=== PATIENT | male | born 1945 | race Caucasian/White ===

== ENCOUNTER 2021-03-31 22:19 | Emergency (ER) | payer MEDICARE, MEDICAID, SELFPAY ==
--- NOTE | 2021-03-31 | ECG_ITS ---
Test Reason : ABD PAIN Blood Pressure : / mmHG Vent. Rate : 114 BPM Atrial Rate : 114 BPM P-R Int : 126 ms QRS Dur : 118 ms QT Int : 346 ms P-R-T Axes : 058 -84 044 degrees QTc Int : 476 ms Artifact in tracing Sinus tachycardia Right bundle branch block Left anterior fascicular block Bifascicular block Minimal voltage criteria for LVH, may be normal variant ( R in aVL ) Abnormal ECG No previous ECGs available Referred By: Rosanna Ryan Electronically Signed By:DOUG KEY
--- NOTE | ~2021-03-31 | CT_ITS ---
EXAMINATION: CT HEAD WITHOUT CONTRAST CLINICAL INFORMATION: Fall. COMPARISON: None TECHNIQUE: Contiguous axial imaging was performed from the skull base to vertex without intravenous administration of contrast. This CT examination was performed using dose optimization techniques as appropriate, variously including the following: *Automated exposure control *Adjustment of mA and/or kV according to patient size (this includes techniques or standardized protocols for targeted exams where dose is matched to indication/reason for exam; i.e. extremities or head) *Use of iterative reconstruction technique DLP: 640 mGy-cm FINDINGS: There is no evidence of acute intracranial hemorrhage or edematous territorial infarction. A few foci of hypoattenuation in the periventricular and deep white matter are consistent with mild microangiopathy. Noguera-white matter differentiation is preserved. Proportional prominence of the ventricles and sulcal spaces. No evidence for obstructive hydrocephalus. No abnormal mass effect or midline shift. No extra-axial fluid collections. No acute soft tissue or osseous abnormalities. Mucus retention cyst in the right maxillary sinus. Other paranasal sinuses and mastoids are clear. CT/CT head/brain wo con IMPRESSION: No evidence of acute intracranial hemorrhage or edematous territorial infarction.
--- NOTE | ~2021-03-31 | CT_ITS ---
EXAMINATION: CTA CHEST, ABDOMEN AND PELVIS WITH CONTRAST CLINICAL INFORMATION: History of AAA with chest and abdominal pain COMPARISON: No pertinent prior studies are available for comparison. TECHNIQUE: After noncontrast timing run, volumetric imaging was performed from the thoracic inlet through the pubic symphysis following administration of 70 mL of Omnipaque 350.. Sagittal and coronal reformatted images were obtained on the technologist's workstation. Additional 2-D coronal and sagittal reformatted images and axial 3-D maximum intensity projection MIP images are generated on the CT workstation. This CT examination was performed using dose optimization techniques as appropriate, variously including the following: *Automated exposure control *Adjustment of mA and/or kV according to patient size (this includes techniques or standardized protocols for targeted exams where dose is matched to indication/reason for exam; i.e. extremities or head) *Use of iterative reconstruction technique DLP: 776 mGy-cm VASCULAR FINDINGS: The thoracic aorta demonstrates mild atherosclerotic changes without aneurysm or dissection. Some calcified and noncalcified plaque is present. Three-vessel branching pattern of the arch is seen with widely patent great vessels. Of note, there is a large abdominal aortic aneurysm present which begins immediately below the level of the renal arteries extending into both common iliac arteries. The aortic sac measures 8.3 x 7.8 cm in greatest dimension. The right iliac measures 4.3 cm in the left measures 3.1 cm. Significant concentric thrombus is present. Of note, a large amount of retroperitoneal blood is present surrounding this aneurysm indicating rupture. No definite active extravasation or bleeding is seen during the few seconds of the scan. The external iliac arteries are patent measuring about 7 mm in diameter. The common femoral arteries are widely patent as well. Femoral bifurcations are patent. Proximal profunda femoris and superficial femoral arteries are patent. The celiac and SMA are patent. The KATIA is patent. There is a single renal artery present on the right. 2 renal arteries are present on the left with a small lower pole accessory branch arising about 3.2 cm below the left main renal artery. The main component of the aneurysm begins just below this branch and there is an approximately 3.4 cm landing zone present below the main left renal artery. A stent placed which probably cover this tiny accessory lower pole branch. NONVASCULAR FINDINGS: CHEST: Lung: Mild changes of COPD are present. There is a 1.5 cm groundglass nodule in the right upper lobe (7:261). No other pulmonary nodules are seen. Mediastinum: The heart size is normal. No hilar or mediastinal lymphadenopathy. Pericardium/Pleura: No significant effusion. No pleural mass or thickening. Chest Wall/Axilla: Unremarkable ABDOMEN/PELVIS: Peritoneal Space: Free intraperitoneal blood is present in the pelvis. Liver, Gallbladder, Biliary Tree: The liver is normal in size, shape, and attenuation. Multiple hepatic hypodensities are seen most of which measure fluid density. There is one in the right lobe that is a bit higher has some and peripheral enhancement and could be a hemangioma but is indeterminate based upon this exam (7:531) No biliary ductal dilatation is present. The gallbladder is unremarkable with no evidence of radiopaque gallstones, gallbladder wall thickening, or obvious pericholecystic inflammatory changes. Pancreas: The pancreatic head is surrounded by hemorrhage and cannot be assessed. Spleen: Unremarkable Adrenal Glands: Unremarkable Kidneys and Ureters: The kidneys are normal in size, shape, and attenuation. No hydronephrosis, hydroureter, or calculi seen. No perinephric stranding. Bladder: Unremarkable Gastrointestinal Tract: The small and large bowel are unremarkable. The appendix is is not seen with certainty but there is no evidence of appendicitis.. Abdominal Wall: There is a left direct inguinal hernia containing an unobstructed loop of sigmoid colon. Retroperitoneum/Lymph Nodes: Marked retroperitoneal hemorrhage is present around the abdominal aortic aneurysm extending down into the pelvis with free intraperitoneal blood described above PELVIC VISCERA: Prostate is enlarged. OSSEUS STRUCTURES: Moderate degenerative changes are noted throughout the lumbar spine. No bony destructive lesions are seen. CT/CT angio abdomen pelvis IMPRESSION: 1. Large 8.3 cm AAA with surrounding retroperitoneal hemorrhage and free intraperitoneal blood. Vascular considerations regarding stent graft placement are described above including a small accessory left lower pole renal artery arising just before the main portion of the aneurysm begins. 2. No evidence of thoracic aortic aneurysm or dissection 3. Incidental note made of hepatic cysts and possible hemangioma, left direct inguinal hernia containing nonobstructed sigmoid colon and BPH. This critical result was discussed with Dr. Ryan at 11:10 PM on the evening of the exam and it was ascertained that the content and urgency of the report was understood at the time of direct communication.
[2021-03-31 22:26] VITALS: BP 130/90; PULSE 121; O2SAT 100
[2021-03-31 22:33] LABS: Glucose, Whole Blood 323 mg/dL (60-115)
--- NOTE | 2021-03-31 22:44 | ED_ITS ---
HPI - General Adult General Chief complaint: Fall Stated complaint: abd pain Time Seen by Provider: 03/31/21 22:22 Source: patient and EMS Mode of arrival: EMS Limitations: no limitations History of Present Illness HPI narrative: Patient comes emergency room complaining of severe abdominal pain. Patient was walking on ice at 16:00, patient slipped. Since then he has been having severe abdominal pain and has been vomiting. Patient states that he hit the side of his head, did not lose consciousness. Patient waited until approximately 22:00 to call the ambulance. Patient's called EMS, states that patient has been restless and in significant pain. On arrival, patient complaining of significant abdominal pain, has a pulsatile mass in the mid abdomen. Tender to palpation. Related Data Allergies Allergy/AdvReac Type Severity Reaction Status Date / Time No Known Allergies Allergy Verified 03/31/21 22:27 Review of Systems Verdana 4l Review of Systems: Verdana 4d Verdana 4d Constitutional : No Weight loss, No Fever, No Chills, No Night Sweats, No Fatigue, No Malaise ENT/Mouth : No Hearing loss, No Ear Pain, No Nasal Congestion, No Sinus Pain, No Hoarseness, No sore throat, No Rhinorrhea, No Swallowing DifficultyDifficulty Eyes: No Eye Pain, No Swelling, No Redness, No Foreign Body, No Discharge, No Vision Changes Cardiovascular : No Chest Pain, No SOB, No Dyspnea on Exertion, No Orthopnea, No Edema, No Palpitations Respiratory : No Cough, No Sputum, No Wheezing, No Smoke Exposure, No Dyspnea Gastrointestinal : Complaining of nausea and vomiting No Diarrhea, No Constipation, complaining of significant abdominal pain, Hematochezia, No Melena Genitourinary : no irregular bleeding, No Dysuria, No Urinary Frequency, No Hematuria, No Urinary Incontinence, No Urgency, No Flank Pain, No Urinary Flow Changes, No Hesitancy Musculoskeletal : No joint pain, No Myalgias, No Joint Swelling Skin : No Skin Lesions, No rash Neuro : No Weakness, No Numbness, No Paresthesias, No Loss of Consciousness, No Dizziness, No Headache Psych : No Anxiety/Panic, No Depression, No SI/HI/AH/VH, No Social Issues, Heme/Lymph: No Bruising, No Bleeding,No Lymphadenopathy Endocrine : No Polyuria, No Polydipsia, No Temperature Intolerance PMFSH Social History Social History Advance Directives: No Physical Exam Verdana 4l Const: Verdana 4d Verdana 4d Other: Verdana 4d Verdana 4d Appearance: Alert. Oriented X3. Significant abdominal pain Eyes: Pupils equal, round and reactive to light. ENT: Pharynx normal. Neck: Normal inspection. Neck supple. No lymph nodes noted. No crepituscrepitus CVS: Normal heart rate and rhythm. Pulses normal. Normal S1 and S2 Respiratory: No respiratory distress. Breath sounds normal. No Wheezing. No rales Abdomen: Soft , slightly tender, tender to palpation in the mid abdomen , pulsatile mass present the mid abdomen Skin: Skin warm and dry. Normal skin color. Normal skin turgor. Extremities: No lower extremity edema. . No Lacerations. No Rash Neuro: Oriented X 3. No motor deficit. No sensory deficit. Moving all extermities. No slurred speech. 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 Esmolol started dr. Ramsey from [facility] vascular surgery accepted the patient ER to ER Just before EMS was putting the patient on their stretcher, patient started becoming very confused, nearly unconscious. It was decided to intubate him prior to transfer . patient received 20 of etomidate, 50 mg rocuronium, [place] informed, patient intubated, patient's systolic blood pressure in the mid 100s Procedures Intubation sedative: Etomidate Mg Given: 20 paralytic: Rocuronium Mg Given: 50 Laryngoscope: other (GlideScope) ET Tube Size: 8 ET Tube Uncuffed: No Tube Secured Depth (cm): 24 Tube Secured Location: lips Tube Placement Confirmation: visualized tube passing through cords, equal breath sounds bilaterally, no breath sounds over epigastrium and confirmation by capnometry Patient Tolerated Procedure: well Intubation Complications: none Medical Decision Making Lab Data Result diagrams: 03/31/21 22:49 03/31/21 22:49 Labs: Lab Results 02/01/22 02/01/22 02/01/22 Range/Units 22:26 22:48 22:49 WBC 23.4 H (4.8-10.8) X10*3/uL RBC 4.12 L (4.60-5.80) X10*6/uL Hgb 12.2 L (14.0-18.0) g/dl Hct 36.5 L (42.0-52.0) % MCV 88.6 (80.0-98.0) fL MCH 29.6 (27.0-33.0) pg MCHC 33.4 (31.0-36.0) g/dl RDW 13.3 (11.0-16.0) % Plt Count 220 (160-400) X10*3/uL MPV 11.2 (9.4-12.4) fL Immature Gran % (Auto) 1.7 H (0.0-0.4) % Neut % (Auto) 87.5 H (45-73) % Lymph % (Auto) 4.6 L (20-40) % [place] % (Auto) 5.8 (2-11) % Eos % (Auto) 0.1 (0-4) % Baso % (Auto) 0.3 (0-2) % Lymph # (Auto) 1.1 L (1.2-4.9) X10*3/uL [place] # (Auto) 1.4 H (0.1-1.2) X10*3/uL Eos # (Auto) 0.0 (0.0-0.4) X10*3/uL Baso # (Auto) 0.1 (0.0-0.2) X10*3/uL Abs Immat Gran (auto) 0.39 H (0.00-0.03) X10*3/uL Absolute Neuts (auto) 20.5 H (2.0-8.3) x10*3/uL Absolute Nucleated RBC 0.000 (0.0-0.012) X10*3/uL Nucleated RBC % (auto) 0.0 (0.0-0.2) /100WBC Smear Tech's Comments VERIFIED PT (9.9-13.0) SEC INR (0.9-1.1) Sodium (135-145) mmol/L Potassium (3.3-5.1) mmol/L Chloride (96-108) mmol/L Carbon Dioxide (22-29) mmol/L Anion Gap (12-20) BUN (9-16) mg/dL Creatinine (0.5-1.4) mg/dL Estim Creat Clear Calc Estimated GFR POC Glucose 323 H (60-115) mg/dL Random Glucose (60-115) mg/dL Lactic Acid 6.1 H* (0.5-2.0) mmol/L Calcium (8.4-10.2) mg/dL Total Bilirubin (0.0-1.0) mg/dL Direct Bilirubin (0.0-0.5) mg/dL AST (5-37) U/L ALT (0-40) U/L Alkaline Phosphatase (39-117) U/L Troponin I High Sens (<3.5-35.0) ng/L Total Protein (6.5-8.0) g/dL Albumin (3.5-5.0) g/dL Ethyl Alcohol mg/dL COVID-19 ([facility]) (Negative) COVID-19 Clin Com Blood Type Antibody Screen Crossmatch 03/31/21 03/31/21 03/31/21 Range/Units 22:49 22:49 22:49 WBC (4.8-10.8) X10*3/uL RBC (4.60-5.80) X10*6/uL Hgb (14.0-18.0) g/dl Hct (42.0-52.0) % MCV (80.0-98.0) fL MCH (27.0-33.0) pg MCHC (31.0-36.0) g/dl RDW (11.0-16.0) % Plt Count (160-400) X10*3/uL MPV (9.4-12.4) fL Immature Gran % (Auto) (0.0-0.4) % Neut % (Auto) (45-73) % Lymph % (Auto) (20-40) % [place] % (Auto) (2-11) % Eos % (Auto) (0-4) % Baso % (Auto) (0-2) % Lymph # (Auto) (1.2-4.9) X10*3/uL [place] # (Auto) (0.1-1.2) X10*3/uL Eos # (Auto) (0.0-0.4) X10*3/uL Baso # (Auto) (0.0-0.2) X10*3/uL Abs Immat Gran (auto) (0.00-0.03) X10*3/uL Absolute Neuts (auto) (2.0-8.3) x10*3/uL Absolute Nucleated RBC (0.0-0.012) X10*3/uL Nucleated RBC % (auto) (0.0-0.2) /100WBC Smear Tech's Comments PT 14.4 H (9.9-13.0) SEC INR 1.3 H (0.9-1.1) Sodium 131 L (135-145) mmol/L Potassium 4.6 (3.3-5.1) mmol/L Chloride 99 (96-108) mmol/L Carbon Dioxide 22 (22-29) mmol/L Anion Gap 15 (12-20) BUN 17 H (9-16) mg/dL Creatinine 1.62 H (0.5-1.4) mg/dL Estim Creat Clear Calc TNP Estimated GFR 42 POC Glucose (60-115) mg/dL Random Glucose 350 H* (60-115) mg/dL Lactic Acid (0.5-2.0) mmol/L Calcium 8.4 (8.4-10.2) mg/dL Total Bilirubin 0.5 (0.0-1.0) mg/dL Direct Bilirubin 0.2 (0.0-0.5) mg/dL AST 12 (5-37) U/L ALT 13 (0-40) U/L Alkaline Phosphatase 83 (39-117) U/L Troponin I High Sens 9.2 (<3.5-35.0) ng/L Total Protein 5.4 L (6.5-8.0) g/dL Albumin 3.3 L (3.5-5.0) g/dL Ethyl Alcohol mg/dL COVID-19 ([facility]) (Negative) COVID-19 Clin Com Blood Type Antibody Screen Crossmatch 03/31/21 03/31/21 03/31/21 Range/Units 22:49 22:49 22:58 WBC (4.8-10.8) X10*3/uL RBC (4.60-5.80) X10*6/uL Hgb (14.0-18.0) g/dl Hct (42.0-52.0) % MCV (80.0-98.0) fL MCH (27.0-33.0) pg MCHC (31.0-36.0) g/dl RDW (11.0-16.0) % Plt Count (160-400) X10*3/uL MPV (9.4-12.4) fL Immature Gran % (Auto) (0.0-0.4) % Neut % (Auto) (45-73) % Lymph % (Auto) (20-40) % [place] % (Auto) (2-11) % Eos % (Auto) (0-4) % Baso % (Auto) (0-2) % Lymph # (Auto) (1.2-4.9) X10*3/uL [place] # (Auto) (0.1-1.2) X10*3/uL Eos # (Auto) (0.0-0.4) X10*3/uL Baso # (Auto) (0.0-0.2) X10*3/uL Abs Immat Gran (auto) (0.00-0.03) X10*3/uL Absolute Neuts (auto) (2.0-8.3) x10*3/uL Absolute Nucleated RBC (0.0-0.012) X10*3/uL Nucleated RBC % (auto) (0.0-0.2) /100WBC Smear Tech's Comments PT (9.9-13.0) SEC INR (0.9-1.1) Sodium (135-145) mmol/L Potassium (3.3-5.1) mmol/L Chloride (96-108) mmol/L Carbon Dioxide (22-29) mmol/L Anion Gap (12-20) BUN (9-16) mg/dL Creatinine (0.5-1.4) mg/dL Estim Creat Clear Calc Estimated GFR POC Glucose (60-115) mg/dL Random Glucose (60-115) mg/dL Lactic Acid (0.5-2.0) mmol/L Calcium (8.4-10.2) mg/dL Total Bilirubin (0.0-1.0) mg/dL Direct Bilirubin (0.0-0.5) mg/dL AST (5-37) U/L ALT (0-40) U/L Alkaline Phosphatase (39-117) U/L Troponin I High Sens (<3.5-35.0) ng/L Total Protein (6.5-8.0) g/dL Albumin (3.5-5.0) g/dL Ethyl Alcohol < 10 mg/dL COVID-19 ([facility]) Negative (Negative) COVID-19 Clin Com See Note Blood Type B Positive Antibody Screen NEGATIVE Crossmatch See Detail Imaging Data CTA of chest and abdomen: Radiologist's impression: CHEST: Lung: Mild changes of COPD are present. There is a 1.5 cm groundglass nodule in the right upper lobe (7:261). No other pulmonary nodules are seen. Mediastinum: The heart size is normal. No hilar or mediastinal lymphadenopathy. Pericardium/Pleura: No significant effusion. No pleural mass or thickening. Chest Wall/Axilla: Unremarkable ABDOMEN/PELVIS: Peritoneal Space: Free intraperitoneal blood is present in the pelvis. Liver, Gallbladder, Biliary Tree: The liver is normal in size, shape, and attenuation. Multiple hepatic hypodensities are seen most of which measure fluid density. There is one in the right lobe that is a bit higher has some and peripheral enhancement and could be a hemangioma but is indeterminate based upon this exam (7:531) No? biliary ductal dilatation is present. The gallbladder is unremarkable with no evidence of radiopaque gallstones, gallbladder wall thickening, or obvious pericholecystic inflammatory changes. Pancreas: The pancreatic head is surrounded by hemorrhage and cannot be assessed. Spleen: Unremarkable Adrenal Glands: Unremarkable Kidneys and Ureters: The kidneys are normal in size, shape, and attenuation. No hydronephrosis, hydroureter, or calculi seen. No perinephric stranding. Bladder: Unremarkable Gastrointestinal Tract: The small and large bowel are unremarkable. The appendix is is not seen with certainty but there is no evidence of appendicitis.. Abdominal Wall: There is a left direct inguinal hernia containing an unobstructed loop of sigmoid colon. Retroperitoneum/Lymph Nodes: Marked retroperitoneal hemorrhage is present around the abdominal aortic aneurysm extending down into the pelvis with free intraperitoneal blood described above PELVIC VISCERA: Prostate is enlarged. OSSEUS STRUCTURES: Moderate degenerative changes are noted throughout the lumbar spine. No bony destructive lesions are seen. CT/CT angio abdomen pelvis IMPRESSION: 1.? Large 8.3 cm AAA with surrounding retroperitoneal hemorrhage and free intraperitoneal blood. Vascular considerations regarding stent graft placement are described above including a small accessory left lower pole renal artery arising just before the main portion of the aneurysm begins. 2.? No evidence of thoracic aortic aneurysm or dissection 3.? Incidental note made of hepatic cysts and possible hemangioma, left direct inguinal hernia containing nonobstructed sigmoid colon and BPH. Head CT: Radiologist's impression: FINDINGS: There is no evidence of acute intracranial hemorrhage or edematous territorial infarction. A few foci of hypoattenuation in the periventricular and deep white matter are consistent with mild microangiopathy. Noguera-white matter differentiation is preserved. Proportional prominence of the ventricles and sulcal spaces. No evidence for obstructive hydrocephalus. No abnormal mass effect or midline shift. No extra-axial fluid collections. No acute soft tissue or osseous abnormalities. Mucus retention cyst in the right maxillary sinus. Other paranasal sinuses and mastoids are clear. ? CT/CT head/brain wo con IMPRESSION: No evidence of acute intracranial hemorrhage or edematous territorial infarction. Critical Care Time Critical Care Time Critical Care Time: Yes Total Critical Care Time: 60 Attestation: 60 minutes were spent in direct patient care, stabilization, consults Discharge Plan Discharge Clinical Impression: Ruptured abdominal aortic aneurysm (AAA) Patient Disposition: [facility] Transfer Details: [facility] ER to ER
[2021-03-31] MEDS: fentaNYL citrate/PF 100 MCG/2 ML VIAL 50 MCG IVPUSH (22:50)
[2021-03-31] MEDS: ondansetron HCL 4 MG/2 ML VIAL IVPUSH (22:50)
[2021-03-31 22:58] LABS: Basophils Absolute Auto 0.1 X10*3/uL (0.0-0.2); Basophils Percent Auto 0.3 % (0-2); Eosinophils Percent Auto 0.1 % (0-4); Hematocrit 36.5 % (42.0-52.0); Hemoglobin 12.2 g/dl (14.0-18.0); Imm Gran Abs Auto 0.39 X10*3/uL (0.00-0.03); Imm Gran Pct Auto 1.7 % (0.0-0.4); Lymphocytes Absolute Auto 1.1 X10*3/uL (1.2-4.9); Lymphocytes Percent Auto 4.6 % (20-40); MANUAL DIFF FLAG SCAN; Mean Corpuscular HGB Conc 33.4 g/dl (31.0-36.0); Mean Corpuscular Hemoglobin 29.6 pg (27.0-33.0); Mean Corpuscular Volume 88.6 fL (80.0-98.0); Mean Platelet Volume 11.2 fL (9.4-12.4); Monocytes Absolute Auto 1.4 X10*3/uL (0.1-1.2); Monocytes Percent Auto 5.8 % (2-11); Neutrophils Absolute Auto 20.5 x10*3/uL (2.0-8.3); Neutrophils Percent Auto 87.5 % (45-73); Platelet Count 220 X10*3/uL (160-400); Red Blood Count 4.12 X10*6/uL (4.60-5.80); Red Cell Distribution Width 13.3 % (11.0-16.0); SCAN SMEAR FLAG 1; White Blood Count 23.4 X10*3/uL (4.8-10.8)
[2021-03-31 23:04] LABS: INTERNATIONAL NORM RATIO 1.3 (0.9-1.1); Prothrombin Time 14.4 SEC (9.9-13.0)
[2021-03-31 23:06] VITALS: BP 102/75; PULSE 105; RESP 24; TEMP 37.1
[2021-03-31 23:09] LABS: Lactic Acid 6.1 mmol/L (0.5-2.0)
[2021-03-31 23:09] LABS: Ethanol < 10 mg/dL
[2021-03-31 23:11] LABS: COVID-19 Test Negative (Negative)
[2021-03-31 23:15] LABS: Alanine Aminotransferase 13 U/L (0-40); Albumin Level 3.3 g/dL (3.5-5.0); Alkaline Phosphatase 83 U/L (39-117); Anion Gap 15 (12-20); Aspartate Amino Transferase 12 U/L (5-37); Bilirubin Direct 0.2 mg/dL (0.0-0.5); Bilirubin Total 0.5 mg/dL (0.0-1.0); Blood Urea Nitrogen 17 mg/dL (9-16); Calcium 8.4 mg/dL (8.4-10.2); Carbon Dioxide 22 mmol/L (22-29); Chloride 99 mmol/L (96-108); Estimated Glomerular Filt Rate 42; Glucose Random 350 mg/dL (60-115); Potassium 4.6 mmol/L (3.3-5.1); Sodium 131 mmol/L (135-145); Total Protein 5.4 g/dL (6.5-8.0)
[2021-03-31 23:20] LABS: Troponin-I High Sensitivity 9.2 ng/L (<3.5-35.0)
[2021-03-31 23:31] LABS: SLIDE REVIEW VERIFIED
[2021-04-01 00:28] VITALS: O2SAT 100
[2021-04-01 00:52] LABS: Reflex Lactate? Lactic Acid Added
[2021-04-01] MEDS: 0.9 % Sodium Chloride 1,000 ML 999 ML IVCONT ×2 (01:12)
[2021-04-01 01:14] VITALS: RESP 18
[2021-04-01] MEDS: fentaNYL citrate/PF 100 MCG/2 ML VIAL IVPUSH (01:14)
--- NOTE | 2021-04-01 03:46 | PC.NURSE ---
pt arrived with lower quad abd pain with tenderness on palpation with dr callahan, then shortly after assessing pt he then had severe lower back pain. pt taken to [facility] and confirmed leaking AAA. 3 large bore 3 iv started with ns wide open. pt type and screen labs drawn. bp on arrival 113/81/98 hr 118, pt able to speak sat 98% on room.
--- NOTE | 2021-04-01 04:17 | PC.NURSE ---
pt receiving state emergent blood products per dr callahan, 2 units received and bolused in. no reactions noted. first unit up and completed at 2336 and then secound one is still infusing as the parametics transported pt to [facility] [place]. see code sheet and tabular trends for bp taken on both arms for AAA reasons. [facility] 166/102 172/94 goal is to have sbp 130's/. p/ pt treated with fentanly 50mcg at 2250 with fair effect. pt was treated wtih a 2nd dose at 2313 100mcg, pt shortly after stated he wasnt feeling good arching his back and his mental status was changing to less responsive to verbal stimulie, dr callahan called to bedside and pt was prepared for intubation and at 2325 pt received etomidate 20mg and rocoronium 50mg with good effect, #8 [id number] at the lip line. at 2329 the [facility] surgeon wants fluids stopped and a total of 1200cc received. propofol started at 1mcg/kg for sedation. bp soft 106/88, and increased to 5 mcg /kg for transport. pt report called to rn and pt was on his was in route at 2338. dx leaking AAA.
[2021-04-01 04:28] VITALS: BP 102/75; BP 113/81; PULSE 105
[2021-04-01 04:46] VITALS: BP 150/98; PULSE 117; RESP 30
[2021-04-01 04:54] VITALS: BP 150/98; PULSE 117; RESP 24; TEMP 37.1
== END 2021-03-31 23:38 | disposition short-term general hospital (02) ==
PROVIDERS: Emergency Provider Emergency Medicine
DX: I71.3 Abdominal aortic aneurysm, ruptured (principal); R11.2 Nausea with vomiting, unspecified; Z20.822 Contact with and (suspected) exposure to COVID-19
CPT/HCPCS: 31500; 70450; 71275; 74174; 80048; 80076; 82077; 82947; 83605; 84484; 85025; 85610; 86850; 86900; 86901; 86920; 87635; 93005; 99284; 99285; 99291; J2405; J3010; P9016

== ENCOUNTER 2024-05-10 15:28 | Inpatient (IN) | payer MEDICARE, MEDICAID, SELFPAY ==
--- NOTE | ~2024-05-10 | CT_ITS ---
CLINICAL HISTORY: AAA. Dissection All CAP images in abd CT angiography chest, abdomen and pelvis with contrast. 3-D postprocessing. Comparison: CR/SR - XR CHEST 1V - 05/10/24 15:50 EDT There is a report from angiogram abdomen from 03/31/2021. Images were not available for comparison at the time of reporting. Findings: Ascending thoracic aorta measures 3.4 x 3 7 cm. Aortic arch is normal in caliber. Small luminal linear filling defect in the proximal left subclavian artery without hemodynamically significant stenosis or occlusion. Small penetrating atherosclerotic ulcers in the aortic arch ( series 8, image 179 / 1072) and in the descending thoracic aorta (sagittal image 55/133). Intramural thrombus in the distal descending thoracic aorta causing less than 50% stenosis. Small caliber but patent celiac artery. SMA and single bilateral renal arteries are patent. Previously described left renal accessory artery is not visualized this exam and likely occluded. Aortobifemoral stent graft. Infrarenal aneurysm sac measures 5.2 x 5.5 cm. Intraluminal thrombus without occlusion in the proximal aortic graft. Distal aortic and right common and external iliac artery grafts are patent. Left iliac arteries are occluded. Patent fem-fem bypass. The visualized thyroid is unremarkable. The heart size is normal. Moderate right and small left pleural effusion. Emphysema. 11 mm ground-glass nodule in the right upper lobe. Passive atelectasis of the lower lobes. No pneumothorax. 1.6 cm indeterminate hypodensity in the right hepatic lobe, possibly a cyst. Atrophic pancreas. Gallbladder and spleen are within normal limits. Mild thickening of the left adrenal gland. Right adrenal gland is not well visualized. No hydronephrosis. 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 Small left inguinal hernia containing short-segment of bowel. No bowel obstruction, pneumatosis or pneumoperitoneum. Body wall edema. Urinary bladder is underdistended. Prostate gland is not enlarged. Small volume abdominopelvic ascites. Degenerative changes of the spine. IMPRESSION: 1. Small penetrating atherosclerotic ulcers in the aortic arch and descending thoracic aorta. 2. Infrarenal aneurysm sac measures 5.2 x 5.5 cm. 3. Intraluminal thrombus in the distal descending thoracic aorta and in the proximal aortic graft without occlusion. 4. 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 5. 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 6. Moderate right and small left pleural effusions. Small volume abdominopelvic ascites. Additional findings as above. This document has been electronically signed by: Devin Drake MD on 05/11/2024 00:14:36
--- NOTE | ~2024-05-10 | US_ITS ---
CLINICAL HISTORY: Bilateral leg swelling. Venous duplex ultrasound bilateral lower extremity Comparison: None Findings: The visualized deep veins are fully compressible with normal Doppler color flow and spectral tracings. No popliteal cyst. IMPRESSION: 1. Negative for bilateral lower extremity deep vein thrombosis. This document has been electronically signed by: Andrew Morris MD on 05/10/2024 19:02:07
--- NOTE | ~2024-05-10 | XR_ITS ---
EXAMINATION: XR CHEST CLINICAL INFORMATION: SOB. Pneumonia/ COMPARISON: No prior. Correlation made with CT angiogram aorta 03/31/2021. TECHNIQUE: AP portable view of the chest was obtained. FINDINGS: There is cardiac enlargement. Mediastinal and hilar contours appear normal. Aorta is mildly tortuous. Lungs demonstrate mild diffuse hyperaeration. There is right basilar airspace opacity suggestive of pneumonia. Minimal blunting of the right costophrenic angle, possible small effusion. No pneumothorax. The left lung appears grossly clear. No focal osseous or soft tissue abnormality. Degenerative changes with mild levoconvex thoracic scoliosis. XR/XR chest 1V IMPRESSION: 1. Right basilar airspace consolidation consistent with pneumonia. Cannot exclude a tiny parapneumonic effusion given the appearance. Electronically signed by: Issac Dash MD 05/10/2024 04:02 PM EDT
--- NOTE | 2024-05-10 15:39 | ECG_ITS ---
Test Reason : SOB Blood Pressure : */* mmHG Vent. Rate : 89 BPM Atrial Rate : 89 BPM P-R Int : 134 ms QRS Dur : 128 ms QT Int : 402 ms P-R-T Axes : 53 -64 88 degrees QTcB Int : 489 ms Normal sinus rhythm Possible Left atrial enlargement Left axis deviation Right bundle branch block Left ventricular hypertrophy with repolarization abnormality ( R in aVL ) Inferior infarct , age undetermined Abnormal ECG When compared with ECG of 31-Mar-2021 22:25, Criteria for Septal infarct are no longer Present Inferior infarct is now Present T wave inversion now evident in Anterolateral leads Referred By: Fernandez Mi Electronically Signed By: DOUG KEY
--- NOTE | 2024-05-10 15:40 | PC.NURSE ---
patient a&ox3, iv inserted, labs drawn, transit bus operator applied- nsr on monitor, rr equal/non labored lungs clear, rll fine crackles, pt currently denying pain/discomfort, call barker within reach, plan of care ongoing
[2024-05-10 15:42] VITALS: BP 122/68; BP 135/92; PULSE 96; RESP 20; TEMP 36.4; O2SAT 96; O2SAT 97; BMI 25.7
--- NOTE | 2024-05-10 15:59 | ED.GENADULT ---
HPI - General Adult General Chief complaint: General Medical Stated complaint: SOB x5 weeks, bilateral leg edema Time Seen by Provider: 05/10/24 15:37 Source: patient Mode of arrival: ambulatory Limitations: no limitations History of Present Illness ED Provider: Fernandez Mi HPI narrative: 78 yold male with pmh of Aortic Aneurym and COPD presents to the ED for bilateral leg swelling and pitting edema for 3 weeks and today his visiting nurse called the ambulance due to patient being hypoxic with room air of 85. Patient is not oxygen dependent. patient was placed on oxygen 2 liters Related Data Home Medications ?Medication ?Instructions ?Recorded ?Confirmed amlodipine 5 mg tablet 5 mg PO DAILY 05/22/21 05/22/21 Previous Rx's ?Medication ?Instructions ?Recorded aspirin 81 mg tablet,delayed 81 mg PO DAILY #30 tabs 05/22/21 release metoprolol tartrate 25 mg tablet 25 mg PO BID #60 tabs 05/22/21 nicotine 21 mg/24 hr daily 1 patch transdermal DAILY #28 ea 05/22/21 transdermal patch tamsulosin 0.4 mg capsule 0.4 mg PO BEDTIME #30 caps 05/22/21 Allergies Allergy/AdvReac Type Severity Reaction Status Date / Time atorvastatin Allergy Intermediate rash Verified 05/10/24 15:43 Review of Systems Review of Systems: Bilateral leg swelling with pitting edema shortness of breath Yes all other systems are reviewed and are negative [facility] Past Medical History Medical History (Updated 05/11/24 @ 09:31 by ORACIO Collado) Allergy to atorvastatin RBBB Colonoscopy refused Hyperlipidemia HTN (hypertension) AAA (abdominal aortic aneurysm) Tobacco abuse, in remission COPD (chronic obstructive pulmonary disease) Ruptured abdominal aortic aneurysm (AAA) Surgical History Hx of appendectomy Family History Family History Father Aneurysm Mother No problems noted. Social History Social History (Updated 05/22/21 @ 15:32 by Leah Snowden MD) Household Members Other:: , Housing: Apartment Patient Tobacco Use Status: Former Tobacco user Smoked in Last 30 Days: Yes e-Cigarette/Vaping Use: Never Used Use of substances other than those prescribed or required for medical reasons: No Advance Directives: No Advance Directives Information Provided: Yes Do you have a plan to hurt others: No Plan Current occupational status: retired Cognitive needs: No Hearing needs: No Vision needs: No Physical Exam ED Vital Signs: Vital Signs - 24 hr 05/10/24 15:42 05/10/24 16:17 05/10/24 18:30 Temperature 97.6 F 97.8 F Pulse Rate 96 90 Respiratory Rate 20 20 Blood Pressure 135/92 H 136/88 Pulse Oximetry 97 95 97 Oxygen Delivery Method Room Air Nasal Cannula Room Air Oxygen Flow Rate 2 05/10/24 19:10 05/10/24 19:11 05/10/24 23:58 Temperature 98.0 F Pulse Rate 96 98 Respiratory Rate 24 H 24 H Blood Pressure 123/89 123/89 130/89 Pulse Oximetry 98 93 Oxygen Delivery Method Room Air Oxygen Flow Rate BMI result Body Mass Index 25.7 Const General: cooperative, healthy appearing, comfortable, no acute distress, well developed, alert, awake and Physically active [facility] Head: Yes normal to inspection, Yes No palpable skull fracture present, Yes normocephalic and Yes atraumatic Eyes General: appearance normal, both eyes and all related structures Neck Neck: Yes normal visual inspection, Yes full ROM, Yes no lymphadenopathy, Yes no meningeal signs, Yes trachea midline, Yes supple, No anterior neck swelling and No tender Chest Chest palpation & inspection: normal inspection of the chest and normal palpation of entire chest wall Resp Effort & Inspection: normal respiratory effort and able to speak in complete sentences Auscultation: clear to auscultation bilaterally Cardio Jugular venous distension: no JVD Heart sounds: S1 normal heart sound present and S2 normal heart sound present GI Inspection: Yes normal to inspection Palpation (GI): Soft to palpation, not firm, nontender, no guarding and not rigid General: Yes no CVA tenderness Back/Spine/Pelvis Back: no CVA tenderness and No back tenderness Skin General skin exam: no rashes or lesions noted, elasticity normal and turgor normal Neuro General: gait normal, tone normal, moves all extremities, Normal light touch and pain sensation, no meningeal signs, no focal motor deficits, CN's II-XI intact bilaterally and normal sensation to monofilament Extrem Other: Positive for bilateral leg swelling, pitting edema. Negative for any calf tenderness General: Yes normal to inspection, Yes full ROM and Yes capillary refill normal Psych Appearance: grossly normal, well kempt and not disheveled Course Reevaluation(s) Reevaluation #1: 01:20 05/11/2024 - Yesenia Romero NP I assumed care of patient from Perla NARAYANAN pending CT angio of the chest abdomen and pelvis and disposition. Repeat troponin was 2816.1, increased approximately 300 from prior. Unfortunately, there was quite a delay in getting the images over to [facility] in addition to his prior images for comparison therefore a significant delay in the impression. IMPRESSION: 1. Small penetrating atherosclerotic ulcers in the aortic arch and descending thoracic aorta. 2. Infrarenal aneurysm sac measures 5.2 x 5.5 cm. 3. Intraluminal thrombus in the distal descending thoracic aorta and in the proximal aortic graft without occlusion. 4. 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 5. 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 6. Moderate right and small left pleural effusions. Small volume abdominopelvic ascites. I again consulted with Cardiology Dr. Brown, who expresses concern about the vascular findings and advises to consult vascular surgery to determine that there is no emergent vascular surgical intervention and/or contraindication to heparin. A consulted with [facility], vascular surgeon Dr. Mcfadden advises no emergent vascular surgical intervention, of note the PT does reveal left iliac artery occlusion, on examination does not have findings consistent with acute ischemia, given the extent of his edema, I am unable to palpate DP/PT pulse but do have positive Doppler signal bilaterally. The extremity is warm to touch. It is nonpainful. Dr. Brown advises that we may admit to medicine service here with the initiation of the heparin infusion. I spoke with hospitalist, Dr. Christopher, and patient to be admitted Medications Administered Generic Name Dose Route Start Last Admin Trade Name Freq PRN Reason Stop Dose Admin Heparin Sodium/Sodium Chloride 25,000 unit in 250 mls @ 0 mls/hr 05/10/24 18:45 05/11/24 01:37 Heparin Sodium,Porcine/1/2ns IVCONT 12 units/kg/hr .Q0M MAGLAI 8.4 mls/hr Administration Protocol Per Protocol Discontinued Medications Generic Name Dose Route Start Last Admin Trade Name Freq PRN Reason Stop Dose Admin Aspirin 325 mg 05/10/24 18:59 05/10/24 19:11 Aspirin Enteric Coated 325 Mg Tablet. PO 05/10/24 19:00 325 mg ONCE ONE Administration Aspirin 324 mg 05/11/24 01:39 05/11/24 01:49 Aspirin 81 Mg Tab.Chew PO 05/11/24 01:40 Not Given ONCE ONE Ceftriaxone Sodium 1 gm 05/10/24 17:44 05/10/24 18:04 Ceftriaxone Sodium 1 Gm Vial IVPUSH 05/10/24 17:45 1 gm ONCE ONE Administration Furosemide 40 mg 05/10/24 18:25 05/10/24 19:11 Furosemide 40 Mg/4 Ml Vial IVPUSH 05/10/24 18:26 40 mg STAT STA Administration Protocol Azithromycin 500 mg/ Sodium 250 mls @ 125 mls/hr 05/10/24 17:44 05/10/24 22:10 Chloride IV 05/10/24 19:43 Infused ONCE ONE Infusion Medical Decision Making Medical Decision Making MDM Narrative: 78-year-old male who presents to ED for shortness of breath with bilateral leg swelling with pitting edema. Patient on 2 L oxygen O2 sat 97%. On room air EMS states 02 saturations was 85% Labs EKG chest x-ray ordered. 5:45pm: Chest x-ray reading states pneumonia. Labs are still pending. Lactic blood culture ordered. Antibiotics ordered. Bilateral leg ultrasound ordered. Chest x-ray negative for cardiomegaly or signs of fluid overload. Waiting for BNP before given fluids. 5:54pm: Lactic 2.4 7;28pm: Patient's troponin over 2000 and BNP over 4000. Patient presently denies any chest pain. Spoke with commercial housekeeper Dr. Brown recommends starting on patient on heparin, aspirin, and statin and admit. Case was discussed with hospitalist Dr. Burr who states heparin she should be held and only give aspirin. He wants patient to have chest CT angio dissection and abdominal CT scan dissection. He states patient has a history on his chart of AAA aneurysm 8 cm with hemorrhage. He states repeat troponin. Case signed out to GAS LEAK INSPECTOR LEONORA. Patient can give fluids due to BNP. Can not give statin due to allergy to statin Differential Diagnosis Differential Diagnoses: The differential diagnosis associated with the presentation includes (CHF, COPD) Admission/Observation Consideration of admission/observation: Escalation of care including admission/observation considered Consult Healthcare Provider Management of the patient was discussed with: Hospitalist (Dr. Muñoz ED hospitalist) and Home Based Assistant (Solution Design Engineer Dr. Brown) Lab Data MDM Lab Attestation statement: I reviewed the patient's lab results. 05/11/24 05:43 05/10/24 17:51 Labs: Lab Results 05/10/24 05/10/24 05/10/24 Range/Units 17:00 17:20 17:51 WBC 6.9 (4.8-10.8) X10*3/uL RBC 6.51 H D (4.60-5.80) X10*6/uL Hgb 18.4 H D (14.0-18.0) g/dl Hct 55.8 H D (42.0-52.0) % MCV 85.7 (80.0-98.0) fL MCH 28.3 (27.0-33.0) pg MCHC 33.0 (31.0-36.0) g/dl RDW 18.8 H (11.0-16.0) % Plt Count 101 L D (160-400) X10*3/uL MPV 12.9 H (9.4-12.4) fL Immature Gran % (Auto) 0.6 H (0.0-0.4) % Neut % (Auto) 67.6 (45-73) % Lymph % (Auto) 18.2 L (20-40) % [place] % (Auto) 12.3 H (2-11) % Eos % (Auto) 0.4 (0-4) % Baso % (Auto) 0.9 (0-2) % Lymph # (Auto) 1.3 (1.2-4.9) X10*3/uL [place] # (Auto) 0.9 (0.1-1.2) X10*3/uL Eos # (Auto) 0.0 (0.0-0.4) X10*3/uL Baso # (Auto) 0.1 (0.0-0.2) X10*3/uL Abs Immat Gran (auto) 0.04 H (0.00-0.03) X10*3/uL Absolute Neuts (auto) 4.7 (2.0-8.3) x10*3/uL Absolute Nucleated RBC 0.000 (0.0-0.012) X10*3/uL Nucleated RBC % (auto) 0.0 (0.0-0.2) /100WBC PT 14.0 H (10.9-12.4) SEC INR 1.2 H (0.9-1.1) APTT 27.1 (26.0-36.8) SEC Sodium 139 (135-145) mmol/L Potassium 5.4 H (3.3-5.1) mmol/L Chloride 103 (96-108) mmol/L Carbon Dioxide 27 (22-29) mmol/L Anion Gap 14 (12-20) BUN 29 H (9-16) mg/dL Creatinine 1.49 H (0.5-1.4) mg/dL Estim Creat Clear Calc 36.6 Estimated GFR 46 Random Glucose 146 H (60-115) mg/dL Lactic Acid 2.4 H* (0.5-2.0) mmol/L Lactic Acid F/U @ 2Hr (0.5-2.0) mmol/L Lactic Acid F/U @ 4Hr (0.5-2.0) mmol/L Calcium 9.4 D (8.4-10.2) mg/dL Total Bilirubin 1.6 H (0.0-1.0) mg/dL AST 47 H (5-37) U/L ALT 54 H (0-40) U/L Alkaline Phosphatase 112 (39-117) U/L Troponin I High Sens 2569.4 H* (<3.5-35.0) ng/L B-Natriuretic Peptide 4893 H (<100) pg/mL Total Protein 5.9 L (6.5-8.0) g/dL Albumin 3.4 L (3.5-5.0) g/dL Influenza Type A (PCR) NEGATIVE (Negative) Influenza Type B (PCR) NEGATIVE (Negative) RSV RNA Qual (PCR) NEGATIVE (Negative) SARS-CoV-2 RNA (RT-PCR) NEGATIVE (Negative) 05/10/24 05/11/24 Range/Units 21:11 00:03 WBC (4.8-10.8) X10*3/uL RBC (4.60-5.80) X10*6/uL Hgb (14.0-18.0) g/dl Hct (42.0-52.0) % MCV (80.0-98.0) fL MCH (27.0-33.0) pg MCHC (31.0-36.0) g/dl RDW (11.0-16.0) % Plt Count (160-400) X10*3/uL MPV (9.4-12.4) fL Immature Gran % (Auto) (0.0-0.4) % Neut % (Auto) (45-73) % Lymph % (Auto) (20-40) % [place] % (Auto) (2-11) % Eos % (Auto) (0-4) % Baso % (Auto) (0-2) % Lymph # (Auto) (1.2-4.9) X10*3/uL [place] # (Auto) (0.1-1.2) X10*3/uL Eos # (Auto) (0.0-0.4) X10*3/uL Baso # (Auto) (0.0-0.2) X10*3/uL Abs Immat Gran (auto) (0.00-0.03) X10*3/uL Absolute Neuts (auto) (2.0-8.3) x10*3/uL Absolute Nucleated RBC (0.0-0.012) X10*3/uL Nucleated RBC % (auto) (0.0-0.2) /100WBC PT (10.9-12.4) SEC INR (0.9-1.1) APTT (26.0-36.8) SEC Sodium (135-145) mmol/L Potassium (3.3-5.1) mmol/L Chloride (96-108) mmol/L Carbon Dioxide (22-29) mmol/L Anion Gap (12-20) BUN (9-16) mg/dL Creatinine (0.5-1.4) mg/dL Estim Creat Clear Calc Estimated GFR Random Glucose (60-115) mg/dL Lactic Acid (0.5-2.0) mmol/L Lactic Acid F/U @ 2Hr 3.4 H* (0.5-2.0) mmol/L Lactic Acid F/U @ 4Hr 2.7 H* (0.5-2.0) mmol/L Calcium (8.4-10.2) mg/dL Total Bilirubin (0.0-1.0) mg/dL AST (5-37) U/L ALT (0-40) U/L Alkaline Phosphatase (39-117) U/L Troponin I High Sens 2816.1 H* (<3.5-35.0) ng/L B-Natriuretic Peptide (<100) pg/mL Total Protein (6.5-8.0) g/dL Albumin (3.5-5.0) g/dL Influenza Type A (PCR) (Negative) Influenza Type B (PCR) (Negative) RSV RNA Qual (PCR) (Negative) SARS-CoV-2 RNA (RT-PCR) (Negative) Independent Interpretation I performed an independent interpretation of an: EKG (Normal sinus. LVH) and Plain X-Ray Critical Care Time Critical Care Time Critical Care Time: Yes Total Critical Care Time: 60 Attestation: Chest x-ray shows pneumonia antibiotics started. Troponin over 2000 BNP over 4000. Case discussed with commercial housekeeper who recommended starting on heparin aspirin echo in the morning with ultrasound. Spoke with hospitalist recommend holding off on heparin and for patient to have dissection study of chest and abdomen due to history of 8 cm aneurysm with hemorrhage. Discharge Plan Discharge Clinical Impression: CHF (congestive heart failure) Patient Disposition: Admitted As Inpatient
[2024-05-10 16:17] VITALS: O2SAT 95
[2024-05-10 17:05] LABS: MANUAL DIFF FLAG NO
[2024-05-10 17:12] LABS: Basophils Absolute Auto 0.1 X10*3/uL (0.0-0.2); Basophils Percent Auto 0.9 % (0-2); Eosinophils Percent Auto 0.4 % (0-4); Hemoglobin 18.4 g/dl (14.0-18.0); Imm Gran Abs Auto 0.04 X10*3/uL (0.00-0.03); Imm Gran Pct Auto 0.6 % (0.0-0.4); Lymphocytes Absolute Auto 1.3 X10*3/uL (1.2-4.9); Lymphocytes Percent Auto 18.2 % (20-40); Mean Corpuscular Hemoglobin 28.3 pg (27.0-33.0); Mean Corpuscular Volume 85.7 fL (80.0-98.0); Mean Platelet Volume 12.9 fL (9.4-12.4); Monocytes Absolute Auto 0.9 X10*3/uL (0.1-1.2); Monocytes Percent Auto 12.3 % (2-11); Neutrophils Absolute Auto 4.7 x10*3/uL (2.0-8.3); Neutrophils Percent Auto 67.6 % (45-73); Platelet Count 101 X10*3/uL (160-400); Red Blood Count 6.51 X10*6/uL (4.60-5.80); Red Cell Distribution Width 18.8 % (11.0-16.0); White Blood Count 6.9 X10*3/uL (4.8-10.8)
--- NOTE | 2024-05-10 17:30 | PC.NURSE ---
blood cultures/lactic, nasal swab drawn per order
[2024-05-10 17:46] LABS: Hematocrit 55.8 % (42.0-52.0)
[2024-05-10 17:51] LABS: INTERNATIONAL NORM RATIO 1.2 (0.9-1.1)
[2024-05-10 17:53] LABS: Partial Thromboplastin Time 27.1 SEC (26.0-36.8)
[2024-05-10 17:54] LABS: Lactic Acid 2.4 mmol/L (0.5-2.0)
[2024-05-10] MEDS: Azithromycin 500 MG in 0.9 % Sodium Chloride 250 ML 125 MG IV (18:02)
[2024-05-10] MEDS: cefTRIAXone sodium 1 GM VIAL IVPUSH (18:04)
--- NOTE | 2024-05-10 18:07 | PC.NURSE ---
iv antibiotics started per order
[2024-05-10 18:09] LABS: Influenza A PCR NEGATIVE (Negative); Influenza B PCR NEGATIVE (Negative); Resp Syncy Virus RNA Qual PCR NEGATIVE (Negative); SARS COV2 PCR INHOUSE NEGATIVE (Negative)
[2024-05-10 18:13] LABS: Alanine Aminotransferase 54 U/L (0-40); Albumin Level 3.4 g/dL (3.5-5.0); Alkaline Phosphatase 112 U/L (39-117); Anion Gap 14 (12-20); Aspartate Amino Transferase 47 U/L (5-37); Bilirubin Total 1.6 mg/dL (0.0-1.0); Blood Urea Nitrogen 29 mg/dL (9-16); Calcium 9.4 mg/dL (8.4-10.2); Carbon Dioxide 27 mmol/L (22-29); Chloride 103 mmol/L (96-108); Creatinine Clr Calc Pharmacy 36.6; Estimated Glomerular Filt Rate 46; Glucose Random 146 mg/dL (60-115); Potassium 5.4 mmol/L (3.3-5.1); Sodium 139 mmol/L (135-145); Total Protein 5.9 g/dL (6.5-8.0)
[2024-05-10 18:17] LABS: B Type Natriuretic Peptide 4893 pg/mL (<100)
[2024-05-10 18:27] LABS: Troponin-I High Sensitivity 2569.4 ng/L (<3.5-35.0)
[2024-05-10 18:30] VITALS: BP 136/88; PULSE 90; RESP 20; TEMP 36.6; O2SAT 97
[2024-05-10 19:10] VITALS: BP 123/89; PULSE 96; RESP 24; O2SAT 98
[2024-05-10 19:11] VITALS: BP 123/89
[2024-05-10] MEDS: Aspirin Enteric Coated 325 MG TABLET.DR PO (19:11)
[2024-05-10] MEDS: Furosemide 40 MG/4 ML VIAL IVPUSH (19:11)
--- NOTE | 2024-05-10 19:11 | PC.NURSE ---
ORACIO Presley spoke with hospitalist, per hospitalist hold heparin at this time due to patient history of AAA, will need CT and will determine if heparin can be hung.
--- OUTSIDE RECORDS SUMMARY | 2024-05-10 19:18 | XMS_ITS | Continuity of Care Document ---
Author Name [facility] Organization [facility] Care Team Providers Care Nuclear Control Operator Name Role Phone [facility] Unavailable Unavailable Problems Combined list of problems from Department of Defense and Veterans Affairs facilities. It does not include entries that were removed or entered in error. Problem Status Onset Date Problem Type Date of Resolution Comments Source AAA - Abdominal Aortic Aneurysm (SCT [id number]) Active Condition Apr 17, 2021 Entered By: MANPREET FERNANDEZ Comment: Acute rupture repaired 04/01/21 at [facility]. [place] [facility] [place] [place] [facility] Chronic obstructive airway disease Active Condition [facility] [place] [facility] Medications Combined list of outpatient medications from Department of Defense and Veterans Affairs facilities.Medications provided include 1) outpatient medications from the last 15 months, and 2) patient-reported medications. Medication Details Route Status Patient Instructions Prescription Expires Prescription Number Last Dispense Date Ordering Provider Order Date Order Qty Source ASPIRIN 81MG TAB,EC TAKE ONE TABLET BY MOUTH ONCE DAILY ORAL ACTIVE GINA FERNANDEZ 2019 [place] [facility] [employer] [place] [employer] [facility] Allergies, Adverse Reactions, Alerts Combined list of allergies from Department of Defense and Veterans Affairs facilities. It does not include entries that were removed or entered in error. Substance Category Reaction Severity Reaction type Status Date Reported Comments Source ATORVASTATIN Propensity to adverse reactions to drug (finding) Itching active 2 [place] [facility] S[facility] [employer] TS [facility] Immunizations Combined list of available immunizations from the Department of Defense and Veterans Affairs facilities. Immunization Series Date Given Administered By Site Reaction Lot Number CVX Code Drug Maintenance Supervisor Electrical Status Comments Source TDAP 2018 115 complet ed Site: Left Deltoid [place] [employer] [employer] [place] [employer] [facility] Encounters Combined list of: 1) Encounters from Department of Veterans Affairs facilities going backup to the last 18 months, not all VA inpatient encounters are included; 2) Encounters from the Department of Defense facilities going backup to 280 months. Location Location Details Encounter Type Encounter Number Reason For Visit Attending Provider ADM Date DC Date Status Disposition Source [place] [facility] [place] [facility] Outpatient Encounter [id number] 09/15 [place] [facility] [place] [facility] [place] [facility] Outpatient Encounter [id number] 09/15 [facility] [place] [facility] Social History Combined list of available smoking, tobacco, and other social history from Department of Defense and Veterans Affairs facilities. Social History Type Response Date Comment Sourc e Tobacco smoking status NHIS RI-TOBACCO USER EVERY DAY 09/16/2023 [facility] [place] [facility] History of tobacco use RI-TOBACCO USE WI 30 MIN OF WAKEUP 09/16/2023 [facility] [place] [facility] History of tobacco use RI-TOBACCO FORMER USER 06/08/2021 [facility] [place] [place] [facility] History of tobacco use RI-TOBACCO USE ORDER ENTRY SPECIALIST NO 12/18/2018 [facility] [place] [place] [facility]
--- OUTSIDE RECORDS SUMMARY | 2024-05-10 19:18 | XMS_ITS | Encounter Summary ---
Author Organization Formerly [facility] Address [address] [place] [address] Care Team Providers Care Market Analyst Name Role Phone Dallas Shehperd Primary Care Provider [phone] Encounter Details Date Type Department Care Team (Late st Contact Info) Description 05/02/2019 Scanned Document [facility] [address] [place] [id number] David Frazier MD [address] [place] [address] Social History Tobacco Use Types Packs/Day Years Used Date Smoking Tobacco: Never Assessed Sex and Gender Information Value Date Recorded Sex Assigned at Not on file Gender Identity Not on file Sexual Orientation Not on file documented as of this encounter Plan of Treatment Not on file documented as of this encounter Visit Diagnoses Not on filedocumented in this encounter Care Teams Market Analyst Relationship Specialty Start Date End Date Dallas Shepherd PA [facility] [address] [place] [address] PCP - General Internal Medicine 05/02/19 documented as of this encounter
--- OUTSIDE RECORDS SUMMARY | 2024-05-10 19:18 | XMS_ITS | Clinical Summary ---
Author Organization [facility] Address [address] [place] [address] Care Team Providers Care Instructor Creeler Name Role Phone Dallas Shepherd Primary Care Provider [phone] Social History Tobacco Use Types Packs/Day Years Used Date Smoking Tobacco: Never Assessed Sex and Gender Information Value Date Recorded Sex Assigned at Not on file Gender Identity Not on file Sexual Orientation Not on file Plan of Treatment Health Maintenance Due Date Last Done Comments Hepatitis C Virus Screening 1945 DTaP/Tdap/Td Vaccines (1 - Tdap) 12/15/1966 Pneumococcal Vaccines 50+ (1 of 1 - PCV) 12/15/1997 Zoster (Shingles) Vaccine (1 of 2) 12/15/1997 RSV Vaccine 60 years and old er and Patients (1 - 1-dose 75+ series) 12/15/2022 COVID-19 Vaccine ( - 2023-2 5 season) 2023 Hepatitis B Vaccines Aged Out No long er eligible based on patient's age to complete this topic Care Teams Instructor Creeler Relationship Specialty Start Date End Date Dallas Shepherd PA [facility] [address] [place] [address] PCP - General Internal Medicine 05/02/19
[2024-05-10 19:24] LABS: Reflex Lactate? Lactic Acid Added
[2024-05-10 21:41] LABS: ~Lactic Acid-LAB USE ONLY 3.4 mmol/L (0.5-2.0)
[2024-05-10 21:48] LABS: Troponin-I High Sensitivity 2816.1 ng/L (<3.5-35.0)
[2024-05-10 23:15] LABS: Reflex Lactate? 2 Y
[2024-05-10 23:58] VITALS: BP 130/89; PULSE 98; RESP 24; TEMP 36.7; O2SAT 93
[2024-05-11] VITALS (10 sets, daily range): BP systolic 107–124; BP diastolic 70–92; PULSE 67–90; RESP 16–22; TEMP 36.1–36.5; O2SAT 94–98
--- NOTE | 2024-05-11 | ECG_ITS ---
Test Reason : NSTEMI Blood Pressure : */* mmHG Vent. Rate : 94 BPM Atrial Rate : 94 BPM P-R Int : 134 ms QRS Dur : 130 ms QT Int : 400 ms P-R-T Axes : 61 -71 86 degrees QTcB Int : 500 ms Normal sinus rhythm Left axis deviation Right bundle branch block Possible Lateral infarct , age undetermined Inferior infarct (cited on or before 10-May-2024) Abnormal ECG When compared with ECG of 10-May-2024 17:07, No significant changes seen Referred By: Kojo Finch Electronically Signed By: DOUG KEY
--- NOTE | 2024-05-11 00:03 | MHC.EDTECH ---
Thisd tech took over care of pt at 2300,rounded and introduced self to pt,vitals taken, repeat lactic drawn and sent to lab, pt urinated 450MLS in urinal, (yellow in color),pt repositioned to comfort,call barker in reach
[2024-05-11 00:31] LABS: ~Lactic Acid-LAB USE ONLY 2.7 mmol/L (0.5-2.0)
--- NOTE | 2024-05-11 01:34 | PC.NURSE ---
ok to start heparin now per Nathen [employer] INSURANCE [employer]ENT
[2024-05-11] MEDS: Heparin Sodium,Porcine/1/2NS 25,000 UNIT/250 ML IV.SOLN 8.4 UNIT IVCONT (01:37)
--- NOTE | 2024-05-11 01:55 | PM.IMHP ---
History of Present Illness Date of Service: 05/11/24 Chief Complaint: Shortness of breath 78-year-old male with a past medical history of HTN, HLD, abdominal aortic aneurysm status post repair, COPD, allergic to statins, BPH presented to the hospital today with a chief complaint of shortness of breath. Patient reports that for the past 1 week he has been having bilateral leg swelling. Denies any pain in the legs. Denies any skin changes or fevers. Denies any cough or sputum production. Reports having shortness of breath which worsens on exertion. Denies any orthopnea or PND. Today visiting nurse noted that he was hypoxic at home and subsequently sent him to the hospital for further evaluation. Reports that he has abdominal aortic aneurysm dissection status post surgery in 2021-mentioned that he is not following any doctors. Reports he is not taking any medications at home. Patient denies any chest pain or palpitations. Denies having any chest pain in the past week. Denies any numbness tingling or focal weakness. Denies any GI symptoms. Review of all other systems is negative except mentioned above ER course: Per ER team, patient was hypoxic to mid 80s, placed on supplemental oxygen. Not in respiratory distress. Patient denied any chest pain. Chest x-ray showed pulmonary congestion. Noted to have bilateral pedal edema. Venous duplex negative. Concern for new onset CHF. On labs also noted have elevated troponin to 2500--2800. Cardiology was notified who suggested to start the patient on heparin drip and patient can be admitted to the [facility]. CT angio chest showed aortic aneurysm with ulcers and intraluminal thrombus measuring up to 5.[address] Knott who mentioned no acute vascular intervention needed for the patient, agreed to continue the patient on the heparin drip. Patient was also given aspirin. [facility] Medical History (Updated 05/11/24 @ 02:00 by Memo Burr MD) Allergy to atorvastatin RBBB Colonoscopy refused Hyperlipidemia HTN (hypertension) AAA (abdominal aortic aneurysm) Tobacco abuse, in remission COPD (chronic obstructive pulmonary disease) Ruptured abdominal aortic aneurysm (AAA) Family History Father Aneurysm Mother No problems noted. Surgical History Hx of appendectomy Social History (Updated 05/22/21 @ 15:32 by Leah Snowden MD) Household Members Other:: , Housing: Apartment Patient Tobacco Use Status: Former Tobacco user Smoked in Last 30 Days: Yes e-Cigarette/Vaping Use: Never Used Use of substances other than those prescribed or required for medical reasons: No Advance Directives: No Advance Directives Information Provided: Yes Do you have a plan to hurt others: No Plan Current occupational status: retired Cognitive needs: No Hearing needs: No Vision needs: No Meds Allergies Allergy/AdvReac Type Severity Reaction Status Date / Time atorvastatin Allergy Intermediate rash Verified 05/10/24 15:43 Active Medications: Current Medications Acetaminophen (Acetaminophen 325 Mg Tablet) 650 mg PO Q6H PRN PRN Reason: Pain, Mild 1-3,fever,headache Albuterol/Ipratropium (Albuterol/Iprat 2.5/0.5mg 3 Ml Ampul.Neb) 3 ml INHALE Q4H PRN PRN Reason: Shortness of Breath/Wheezing Aspirin (Aspirin Enteric Coated 81 Mg Tablet.Dr) 81 mg PO DAILY COUNT INCLUDES THE [facility] Benzonatate (Benzonatate 100 Mg Capsule) 100 mg PO TID PRN PRN Reason: Cough Calcium Carbonate (Calcium Carbonate 750 Mg Tab.Chew) 750 mg PO Q4H PRN PRN Reason: Heartburn Furosemide (Furosemide 40 Mg/4 Ml Vial) 40 mg IVPUSH DAILY COUNT INCLUDES THE [facility]; Protocol Heparin Sodium (Porcine) (Heparin Sodium,Porcine 5,000 Unit/Ml Vial) 2,800 unit 40 unit/kg (2800 unit) IVPUSH PROTOCOL BOLUS PRN; Protocol PRN Reason: 40 unit/kg - Heparin Protocol Heparin Sodium (Porcine) (Heparin Sodium,Porcine 5,000 Unit/Ml Vial) 5,600 unit 80 unit/kg (5600 unit) IVPUSH PROTOCOL BOLUS PRN; Protocol PRN Reason: 80 unit/kg - Heparin Protocol Heparin Sodium/Sodium Chloride (Heparin Sodium,Porcine/1/2ns) 25,000 unit in 250 mls @ 0 mls/hr IVCONT .Q0M COUNT INCLUDES THE [facility]; Protocol Last Admin: 05/11/24 01:37 Dose: 12 units/kg/hr, 8.4 mls/hr Magnesium Hydroxide (Milk Of Magnesia 30 Ml Oral.Susp) 30 ml PO DAILY PRN PRN Reason: Constipation Melatonin (Melatonin 3 Mg Tablet) 6 mg PO BEDTIME PRN PRN Reason: Insomnia Metoprolol Tartrate (Metoprolol Tartrate 25 Mg Tablet) 25 mg PO BID MAGALI; Protocol Sodium Chloride (0.9 % Sodium Chloride Flush 3 Ml Syringe) 3 ml IVFLUSH QSHIFT MAG[facility] Home Medications ?Medication ?Instructions ?Recorded ?Confirmed ?Last Taken ?Type amlodipine 5 mg tablet 5 mg PO DAILY 05/22/21 05/22/21 Unknown History Physical Exam Vital Signs and Narrative: Vital Signs: Last Vital Signs Temp 98.0 F 05/10/24 23:58 Pulse 98 05/10/24 23:58 Resp 24 H 05/10/24 23:58 BP 130/89 05/10/24 23:58 Pulse Ox 93 05/10/24 23:58 O2 Del Method Room Air 05/10/24 23:58 O2 Flow Rate 2 05/10/24 16:17 Oxygen Flow Rate 2 05/10/24 15:42 BMI result Body Mass Index 25.7 Gen: Appears be in no acute distress HEENT: NCAT, Moist mucosa. Pulmonary: Coarse breath sounds CVS: Normal S1-S2 Abdomen: BS+, Soft, Nontender Extremities: Warm well perfused; bilateral 2+ pitting edema present Neuro: Alert and awake. Results Labs 05/10/24 17:00 05/10/24 17:51 Labs: Laboratory Results - last 24 hr 05/10/24 05/10/24 05/10/24 17:00 17:20 17:51 MCV 85.7 MCH 28.3 MCHC 33.0 RDW 18.8 H Plt Count 101 L D MPV 12.9 H Immature Gran % (Auto) 0.6 H Neut % (Auto) 67.6 Lymph % (Auto) 18.2 L [place] % (Auto) 12.3 H Eos % (Auto) 0.4 Baso % (Auto) 0.9 Lymph # (Auto) 1.3 [place] # (Auto) 0.9 Eos # (Auto) 0.0 Baso # (Auto) 0.1 Abs Immat Gran (auto) 0.04 H Absolute Neuts (auto) 4.7 Absolute Nucleated RBC 0.000 Nucleated RBC % (auto) 0.0 PT 14.0 H INR 1.2 H APTT 27.1 Anion Gap 14 Estim Creat Clear Calc 36.6 Estimated GFR 46 Random Glucose 146 H Lactic Acid 2.4 H* Lactic Acid F/U @ 2Hr Lactic Acid F/U @ 4Hr Calcium 9.4 D Total Bilirubin 1.6 H AST 47 H ALT 54 H Alkaline Phosphatase 112 B-Natriuretic Peptide 4893 H Total Protein 5.9 L Albumin 3.4 L Influenza Type A (PCR) NEGATIVE Influenza Type B (PCR) NEGATIVE RSV RNA Qual (PCR) NEGATIVE SARS-CoV-2 RNA (RT-PCR) NEGATIVE 05/10/24 05/11/24 21:11 00:03 MCV MCH MCHC RDW Plt Count MPV Immature Gran % (Auto) Neut % (Auto) Lymph % (Auto) [place] % (Auto) Eos % (Auto) Baso % (Auto) Lymph # (Auto) [place] # (Auto) Eos # (Auto) Baso # (Auto) Abs Immat Gran (auto) Absolute Neuts (auto) Absolute Nucleated RBC Nucleated RBC % (auto) PT INR APTT Anion Gap Estim Creat Clear Calc Estimated GFR Random Glucose Lactic Acid Lactic Acid F/U @ 2Hr 3.4 H* Lactic Acid F/U @ 4Hr 2.7 H* Calcium Total Bilirubin AST ALT Alkaline Phosphatase B-Natriuretic Peptide Total Protein Albumin Influenza Type A (PCR) Influenza Type B (PCR) RSV RNA Qual (PCR) SARS-CoV-2 RNA (RT-PCR) Imaging Radiologist's Impressions: Impressions Chest X-Ray 05/10/24 15:39 IMPRESSION: 1. Right basilar airspace consolidation consistent with pneumonia. Cannot exclude a tiny parapneumonic effusion given the appearance. Electronically signed by: Issac Dash MD 05/10/2024 04:02 PM EDT Assessment and Plan (1) New onset of congestive heart failure: Status: Acute Plan 78-year-old male with a past medical history of HTN, HLD, abdominal aortic aneurysm status post repair, COPD, allergic to statins, BPH presented to the hospital today with a chief complaint of shortness of breath. Noted to have new onset CHF/NSTEMI. Admitted to the hospital for further management. NSTEMI: New onset CHF: Moderate right and small left pleural effusions: Anasarca: Patient was mildly hypoxic on presentation. Placed on supplemental oxygen. Troponin elevated to 2500--2800. Patient denied any chest pain. EKG nonischemic. Cardiology was notified who suggested to start the patient on heparin drip. Patient given aspirin. Plan: -Telemetry -Echocardiogram -Daily weights and I's and O's -Lasix 40 mg IV daily -Cardiology follow-up in a.m. for further management. -Continue aspirin -Patient allergic to statin. -Continue heparin drip per ACS protocol. HX COPD: No significant wheezing noted. DuoNebs p.r.n.. Abdominal aortic aneurysm: Left iliac artery occlusion: Patient had abdominal aortic aneurysm dissection in 2021 status post repair. Current CT angio showed small penetrating atherosclerotic ulcers in the aortic arch and descending thoracic aorta, infrarenal aneurysm sac measuring 5.2x 5.5 cm. Also noted left iliac artery occlusion with patent fem-fem bypass Dr. Mcfadden was notified-mentioned no acute surgical intervention needed currently. Goal blood pressure less than 140/90. Current systolic blood pressure is 130. Continue home metoprolol. Renal infarction/atrophy: Nephrology follow-up recommended. Medication noncompliance: Patient counseled on importance of adhering to the medications. Patient may benefit home visiting nurses at the time of discharge. DVT prophylaxis: Patient on heparin drip Code status: Full code Quality Stroke Does the patient have a stroke diagnosis?: No VTE Prior VTE?: No VTE Risk Level:: Medical - moderate - high VTE Device Contraindication: Treatment Not Indicated VTE Drug Contraindication: N/A - Med Ordered
--- NOTE | 2024-05-11 02:19 | MHC.EDTECH ---
Rounds and belongings list completed,copy placed in chart,call barker in reach
--- NOTE | 2024-05-11 03:18 | MHC.EDTECH ---
Rounds and vitals completed, emptied 400MLS from urinal, pt appears comfortable,call barker in reach
[2024-05-11 06:10] LABS: Hematocrit 52.1 % (42.0-52.0); Imm Gran Abs Auto 0.03 X10*3/uL (0.00-0.03); Imm Gran Pct Auto 0.4 % (0.0-0.4); Lymphocytes Absolute Auto 1.5 X10*3/uL (1.2-4.9)
[2024-05-11 06:12] LABS: Basophils Absolute Auto 0.1 X10*3/uL (0.0-0.2); Basophils Percent Auto 1.1 % (0-2); Eosinophils Percent Auto 0.4 % (0-4); Hemoglobin 17.4 g/dl (14.0-18.0); Lymphocytes Percent Auto 20.1 % (20-40); Mean Corpuscular HGB Conc 33.4 g/dl (31.0-36.0); Mean Corpuscular Hemoglobin 28.3 pg (27.0-33.0); Mean Corpuscular Volume 84.7 fL (80.0-98.0); Mean Platelet Volume 12.4 fL (9.4-12.4); Monocytes Absolute Auto 1.1 X10*3/uL (0.1-1.2); Monocytes Percent Auto 14.2 % (2-11); Neutrophils Absolute Auto 4.8 x10*3/uL (2.0-8.3); Neutrophils Percent Auto 63.8 % (45-73); Red Blood Count 6.15 X10*6/uL (4.60-5.80); Red Cell Distribution Width 18.5 % (11.0-16.0); White Blood Count 7.5 X10*3/uL (4.8-10.8)
[2024-05-11 06:14] LABS: Platelet Count 91 X10*3/uL (160-400)
--- NOTE | 2024-05-11 07:00 | CA_ITS ---
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 The calculated ejection fraction is 22% by biplane method. - The inferior wall, inferolateral wall, and apex segment are akinetic. - LV apical thrombus noted 2x0.8cm. - There is mild to moderate mitral valve regurgitation. - Mild to moderate pulmonary hypertension is present. - There is a moderate loculated pericardial effusion overlying the right atrium. Findings Procedure Information Contrast agent, definity, is being given per protocol without apparent complications. Left Ventricle Mildly increased left ventricular cavity size. The left ventricular systolic function is severely decreased. The calculated ejection fraction is 22% by biplane method. There is evidence of regional wall motion abnormalities. There is severe global hypokinesis. Evidence suggests grade III (severe) diastolic dysfunction. LV apical thrombus noted 2x0.8cm. Wall Motion Rest Echo Findings The inferior wall, inferolateral wall, and apex segment are akinetic. Right Ventricle Normal right ventricular cavity size. There is moderately decreased right ventricular systolic function. Atria The left atrium is normal in size. The right atrium is mildly dilated. Aortic Valve There is mild calcification of the aortic valve. There is no aortic valve stenosis. There is mild aortic valve regurgitation. Mitral Valve There is mild anterior mitral leaflet thickening. There is mild mitral annular calcification. There is mild to moderate mitral valve regurgitation. There is no mitral valve stenosis. Pulmonic Valve The pulmonic valve is likely normal. Tricuspid Valve There is mild tricuspid valve regurgitation. The right ventricular systolic pressure is 56 mmHg. Mild to moderate pulmonary hypertension is present. Great Vessels The asc aorta is normal in size. Venous The inferior vena cava is mildly dilated and collapses less than 50% with inspiration. Pericardium/Pleural There is a moderate loculated pericardial effusion overlying the right atrium. Prior Study Comparison No prior study available for comparison. Measurements 2D Linear Measurements IVSd: 0.66 0.6-0.9/0.6-1.0 cm LVIDd: 5.93 3.9-5.3/4.2-5.9 cm LVIDd Index: 3.35 2.4-3.2/2.2-3.1 cm/m2 LVIDs: 5.53 2.0-3.6 cm LVPWd: 0.56 0.7-1.1 cm LA Diam: 4.90 2.7-3.8/3.0-4.0 cm LAIDs Index: 2.77 1.5-2.3 cm/m2 LV Mass: 163.12 67-162/88-224 g LV Mass Index: 92.16 43-95/49-115 g/m2 LVOT Diam: 2.20 3.0+(-)1.3 cm 2D Systolic Function EF 4C: 18.80 >55% EF 2C: 19.70 >55% EF BiP: 21.70 >55% Mitral Valve MV Pk E: 1.33 MV PK A: 0.58 MV Decel Time: 131.00 E/A: 2.30 E'Lateral: 2.64 E'Medial: 2.53 E/E' Med: 52.60 E/E' Lat: 50.40 PHT: 38.00 MVA PHT: 5.79 Decel [place]: 10.13 MR Vol - PW Dopp: 11.34 MR VTI: 1.26 MR ERO: 9.00 MR Alias Angel Luis: 0.39 MR RAD: 0.40 Aortic Valve AoV Pk Angel Luis: 1.12 AoV Pk Grad: 5.00 LEOBARDO: 2.79 AI Pk Angel Luis: 3.76 AI VTI: 1.40 AI [place]: 3.39 LVOT LVOT Pk Angel Luis: 0.69 LVOT Mn Angel Luis: 0.51 LVOT VTI: 0.10 LVOT Pk Grad: 2.00 LVOT Mn Grad: 1.00 LVOT Diam: 2.20 LVOT Area: 3.80 Diastolic Function MV Pk E: 1.33 MV Pk A: 0.58 E/A: 2.30 E'Medial: 2.53 E/E' Med: 52.60 E' Laterial: 2.64 E/E' Lat: 50.40 Right Ventricle TAPSE (mm): 8.60 TVS' Angel Luis: 7.70 Tricuspid Valve TR Pk Angel Luis: 3.22 TR Pk Grad: 41.00 RA Press: 15.00 RVSP: 56.00 Great Vessels Aorta Sinus of Valsalva: 3.70 2.0-3.5 cm Ao Asc: 3.60 2.1-3.4 cm Pulmonary Valve PV Pk Angel Luis: 0.42 Peak PV Grad: 1.00 Updated in Other Vendor System with Status of Final Richard Brown MD electronically signed on 05/11/2024 12:08:11 PM with status of Final
--- NOTE | 2024-05-11 07:35 | P.PNIM_ITS ---
Subjective Subjective Date of Service: 05/11/24 Interval History: f/u on NSTEMI, acute heart failure No chest pain or shortness of breath at present Physical Exam 2 Vital Signs: Vital Signs: Last Vital Signs Temp 97.7 F 05/11/24 05:32 Pulse 90 05/11/24 07:33 Resp 20 05/11/24 07:33 BP 124/89 05/11/24 07:33 Pulse Ox 98 05/11/24 07:33 O2 Del Method Nasal Cannula 05/11/24 07:33 O2 Flow Rate 2 05/11/24 07:33 Oxygen Flow Rate 2 05/10/24 15:42 BMI result Body Mass Index 25.7 Const: Other: General: AO X 3, no acute distress, frail looking Resp: CTA bilateral CVS: S1,S2,RRR GI: +BS, NT, no distention Skin: No rash Neuro: motor grossly intact Psych: appropriate affect Objective Data Active Medications Acetaminophen (Acetaminophen 325 Mg Tablet) 650 mg PO Q6H PRN PRN Reason: Pain, Mild 1-3,fever,headache Albuterol/Ipratropium (Albuterol/Iprat 2.5/0.5mg 3 Ml Ampul.Neb) 3 ml INHALE Q4H PRN PRN Reason: Shortness of Breath/Wheezing Aspirin (Aspirin Enteric Coated 81 Mg Tablet.Dr) 81 mg PO DAILY [facility] Benzonatate (Benzonatate 100 Mg Capsule) 100 mg PO TID PRN PRN Reason: Cough Calcium Carbonate (Calcium Carbonate 750 Mg Tab.Chew) 750 mg PO Q4H PRN PRN Reason: Heartburn Furosemide (Furosemide 40 Mg/4 Ml Vial) 40 mg IVPUSH DAILY [facility]; Protocol Heparin Sodium (Porcine) (Heparin Sodium,Porcine 5,000 Unit/Ml Vial) 2,800 unit 40 unit/kg (2800 unit) IVPUSH PROTOCOL BOLUS PRN; Protocol PRN Reason: 40 unit/kg - Heparin Protocol Heparin Sodium (Porcine) (Heparin Sodium,Porcine 5,000 Unit/Ml Vial) 5,600 unit 80 unit/kg (5600 unit) IVPUSH PROTOCOL BOLUS PRN; Protocol PRN Reason: 80 unit/kg - Heparin Protocol Heparin Sodium/Sodium Chloride (Heparin Sodium,Porcine/1/2ns) 25,000 unit in 250 mls @ 0 mls/hr IVCONT .Q0M [facility]; Protocol Last Admin: 05/11/24 01:37 Dose: 12 units/kg/hr, 8.4 mls/hr Documented By: JAMES Co-signed By: BAL Magnesium Hydroxide (Milk Of Magnesia 30 Ml Oral.Susp) 30 ml PO DAILY PRN PRN Reason: Constipation Melatonin (Melatonin 3 Mg Tablet) 6 mg PO BEDTIME PRN PRN Reason: Insomnia Metoprolol Tartrate (Metoprolol Tartrate 25 Mg Tablet) 25 mg PO BID [facility]; Protocol Sodium Chloride (0.9 % Sodium Chloride Flush 3 Ml Syringe) 3 ml IVFLUSH QSHIFT [facility] Labs 05/11/24 09:23 05/11/24 09:23 Labs: Laboratory Results - last 24 hr 05/10/24 05/10/24 05/10/24 17:00 17:20 17:51 MCV 85.7 MCH 28.3 MCHC 33.0 RDW 18.8 H Plt Count 101 L D MPV 12.9 H Immature Gran % (Auto) 0.6 H Neut % (Auto) 67.6 Lymph % (Auto) 18.2 L [place] % (Auto) 12.3 H Eos % (Auto) 0.4 Baso % (Auto) 0.9 Lymph # (Auto) 1.3 [place] # (Auto) 0.9 Eos # (Auto) 0.0 Baso # (Auto) 0.1 Abs Immat Gran (auto) 0.04 H Absolute Neuts (auto) 4.7 Absolute Nucleated RBC 0.000 Nucleated RBC % (auto) 0.0 PT 14.0 H INR 1.2 H APTT 27.1 Anion Gap 14 Estim Creat Clear Calc 36.6 Estimated GFR 46 Random Glucose 146 H Lactic Acid 2.4 H* Lactic Acid F/U @ 2Hr Lactic Acid F/U @ 4Hr Calcium 9.4 D Total Bilirubin 1.6 H AST 47 H ALT 54 H Alkaline Phosphatase 112 B-Natriuretic Peptide 4893 H Total Protein 5.9 L Albumin 3.4 L Influenza Type A (PCR) NEGATIVE Influenza Type B (PCR) NEGATIVE RSV RNA Qual (PCR) NEGATIVE SARS-CoV-2 RNA (RT-PCR) NEGATIVE 05/10/24 05/11/24 05/11/24 21:11 00:03 05:43 MCV 84.7 MCH 28.3 MCHC 33.4 RDW 18.5 H Plt Count 91 L MPV 12.4 Immature Gran % (Auto) 0.4 Neut % (Auto) 63.8 Lymph % (Auto) 20.1 [place] % (Auto) 14.2 H Eos % (Auto) 0.4 Baso % (Auto) 1.1 Lymph # (Auto) 1.5 [place] # (Auto) 1.1 Eos # (Auto) 0.0 Baso # (Auto) 0.1 Abs Immat Gran (auto) 0.03 Absolute Neuts (auto) 4.8 Absolute Nucleated RBC 0.000 Nucleated RBC % (auto) 0.0 PT INR APTT Anion Gap Estim Creat Clear Calc Estimated GFR Random Glucose Lactic Acid Lactic Acid F/U @ 2Hr 3.4 H* Lactic Acid F/U @ 4Hr 2.7 H* Calcium Total Bilirubin AST ALT Alkaline Phosphatase B-Natriuretic Peptide Total Protein Albumin Influenza Type A (PCR) Influenza Type B (PCR) RSV RNA Qual (PCR) SARS-CoV-2 RNA (RT-PCR) Assessment and Plan (1) NSTEMI (non-ST elevated myocardial infarction): Status: Acute (2) New onset of congestive heart failure: Status: Acute Plan 78-year-old male with a past medical history of HTN, HLD, abdominal aortic aneurysm status post repair, COPD, allergic to statins, BPH presented to the hospital today with a chief complaint of shortness of breath and found to have acute NSTEMI complicated by new onset heart failure. NSTEMI--no chest pain, hemodynamically stable medical management with IV heparin x 48 to 72 hours, ASA, metoprolol. He's alergic to statin echocardiogram carddiologyu consult New onset heart failure, likely acute systolic heart failure with anasarca IV Lasix echo as above Monitor i/o, weight and electrolytes HX COPD: No exacerbation. DuoNebs p.r.n.. Acute lactic acidosis d/t NSTEMI Mild hyperkalemia, repeat labs Thrombocytopenia monitor on while on heparin CKD 3, stable Mild elevated LFTs monitor, hold statin Abdominal aortic aneurysm: Left iliac artery occlusion: Patient had abdominal aortic aneurysm dissection in 2021 status post repair. Current CT angio showed small penetrating atherosclerotic ulcers in the aortic arch and descending thoracic aorta, infrarenal aneurysm sac measuring 5.2x 5.5 cm. Also noted left iliac artery occlusion with patent fem-fem bypass Dr. Mcfadden was notified-mentioned no acute surgical intervention needed currently. Goal blood pressure less than 140/90. Current systolic blood pressure is 130. Continue home metoprolol. Renal infarction/atrophy: Nephrology follow-up recommended. Medication noncompliance: Patient counseled on importance of adhering to the medications. Patient may benefit home visiting nurses at the time of discharge. DVT prophylaxis: Patient on heparin drip Code status: Full code Quality Stroke Does the patient have a stroke diagnosis?: No VTE Prior VTE?: No VTE Risk Level:: Medical - moderate - high VTE Device Contraindication: Treatment Not Indicated VTE Drug Contraindication: N/A - Med Ordered
[2024-05-11 09:36] LABS: Hemoglobin 17.5 g/dl (14.0-18.0); Mean Corpuscular HGB Conc 34.3 g/dl (31.0-36.0); Mean Corpuscular Hemoglobin 28.7 pg (27.0-33.0); Mean Corpuscular Volume 83.6 fL (80.0-98.0); Mean Platelet Volume 12.2 fL (9.4-12.4); Red Cell Distribution Width 18.2 % (11.0-16.0); White Blood Count 6.5 X10*3/uL (4.8-10.8)
[2024-05-11 09:37] LABS: Platelet Count 80 X10*3/uL (160-400)
[2024-05-11 09:42] LABS: PTT Heparin Drip 94.9 SEC (53-77.9)
[2024-05-11 09:45] LABS: Alanine Aminotransferase 65 U/L (0-40); Albumin Level 2.8 g/dL (3.5-5.0); Alkaline Phosphatase 100 U/L (39-117); Anion Gap 15 (12-20); Aspartate Amino Transferase 58 U/L (5-37); Bilirubin Total 1.2 mg/dL (0.0-1.0); Blood Urea Nitrogen 32 mg/dL (9-16); Calcium 8.6 mg/dL (8.4-10.2); Carbon Dioxide 23 mmol/L (22-29); Chloride 105 mmol/L (96-108); Creatinine Clr Calc Pharmacy 38.2; Estimated Glomerular Filt Rate 48; Glucose Random 227 mg/dL (60-115); Potassium 4.7 mmol/L (3.3-5.1); Sodium 138 mmol/L (135-145)
[2024-05-11 09:59] LABS: Troponin-I High Sensitivity 2317.9 ng/L (<3.5-35.0)
--- NOTE | 2024-05-11 10:17 | PHA.MEDREC ---
Addendum entered by Darrius Snow RPh 05/11/24 10:20: Reviewed by [facility] Original Note: Pharmacy Consult ? Medication Reconciliation Pharmacy has completed the medication reconciliation. spoke to patient and family at bedside to confirm med list. Patient and family states patient is not taking any medication.
[2024-05-11] MEDS: Metoprolol Tartrate 25 MG TABLET PO (10:51)
[2024-05-11] MEDS: Aspirin Enteric Coated 81 MG TABLET.DR PO (10:51)
[2024-05-11] MEDS: Furosemide 40 MG/4 ML VIAL IVPUSH (10:51)
[2024-05-11] MEDS: 0.9 % Sodium Chloride Flush 3 ML SYRINGE IVFLUSH ×2 (10:54→16:17)
--- NOTE | 2024-05-11 11:19 | P.CONGS_ITS ---
History of Present Illness Consult details Consult date: 05/11/24 Narrative: We were consulted for Curt, for findings on abd/pelvic CTA of an infrarenal aneursymal sac measuring 5.2cmx5.5cm, occluded left iliac artery, and an intraluminal thrombus in the distal descending thoracic aorta without occlusion in the proximal arterial graft. He presented to the ER yesterday with concerns of bilateral lower extremity edema and swelling for >3 weeks. He was found to be hypoxic and a RLL pneumonia was found on CXR. Cardiology was consulted, whom recommended ASA and Heparin and will be having an echo done this morning. The pt has a medical hx significant for AAA rupture and repair at [facility] in 2021, fem-fem bypass, CHF, RBBB, HLD, HTN, and COPD. He states he has not had follow up with [facility] since the AAA repair in 2021. He does not recall when he had the fem- fem bypass. He denies any leg pain this morning. He denies any abd or lower back pain. Review of Systems 2 Constitutional: Constitutional: Reports as per HPI and Denies weakness ENT: Reports Normal hearing present and Denies dizziness Cardiovascular: Cardiovascular: Reports as per HPI, Denies chest pain, Denies chest pain at rest, Denies chest pain with activity, Denies dyspnea and Denies dyspnea on exertion Respiratory: Respiratory: Reports as per HPI, Denies cough, Denies dyspnea and Denies dyspnea on exertion Gastrointestinal: Gastrointestinal: Reports as per HPI, Denies abdominal pain, Denies nausea and Denies vomiting Musculoskeletal: Musculoskeletal: Denies numbness Integumentary/Breasts: Skin/Breast: Reports as per HPI, Denies erythema and Denies wounds Neurologic: Reports Normal hearing present, Denies dizziness, Denies numbness, Denies Sensory deficit (Neuro) and Denies weakness Psychiatric: Psychiatric: Reports no additional psychiatric complaints Endocrine: Endocrine: Reports no additional endocrine complaints [facility] Past Medical History Medical History (Updated 05/11/24 @ 11:28 by Alejandra Cavanaugh PA-C) Allergy to atorvastatin RBBB Colonoscopy refused Hyperlipidemia HTN (hypertension) AAA (abdominal aortic aneurysm) Tobacco abuse, in remission COPD (chronic obstructive pulmonary disease) Ruptured abdominal aortic aneurysm (AAA) Family History Family History Father Aneurysm Mother No problems noted. Surgical History Surgical History Hx of appendectomy Social History Social History (Updated 05/22/21 @ 15:32 by Leah Snowden MD) Household Members Other:: , Housing: Apartment Patient Tobacco Use Status: Former Tobacco user Smoked in Last 30 Days: Yes e-Cigarette/Vaping Use: Never Used Use of substances other than those prescribed or required for medical reasons: No Advance Directives: No Advance Directives Information Provided: Yes Do you have a plan to hurt others: No Plan Current occupational status: retired Cognitive needs: No Hearing needs: No Vision needs: No Meds Allergies Allergy/AdvReac Type Severity Reaction Status Date / Time atorvastatin Allergy Intermediate rash Verified 05/10/24 15:43 Active Medications: Current Medications Acetaminophen (Acetaminophen 325 Mg Tablet) 650 mg PO Q6H PRN PRN Reason: Pain, Mild 1-3,fever,headache Albuterol/Ipratropium (Albuterol/Iprat 2.5/0.5mg 3 Ml Ampul.Neb) 3 ml INHALE Q4H PRN PRN Reason: Shortness of Breath/Wheezing Aspirin (Aspirin Enteric Coated 81 Mg Tablet.Dr) 81 mg PO DAILY MAGALI Last Admin: 05/11/24 10:51 Dose: 81 mg Benzonatate (Benzonatate 100 Mg Capsule) 100 mg PO TID PRN PRN Reason: Cough Calcium Carbonate (Calcium Carbonate 750 Mg Tab.Chew) 750 mg PO Q4H PRN PRN Reason: Heartburn Furosemide (Furosemide 40 Mg/4 Ml Vial) 40 mg IVPUSH DAILY MAGALI; Protocol Last Admin: 05/11/24 10:51 Dose: 40 mg Heparin Sodium (Porcine) (Heparin Sodium,Porcine 5,000 Unit/Ml Vial) 2,800 unit 40 unit/kg (2800 unit) IVPUSH PROTOCOL BOLUS PRN; Protocol PRN Reason: 40 unit/kg - Heparin Protocol Heparin Sodium (Porcine) (Heparin Sodium,Porcine 5,000 Unit/Ml Vial) 5,600 unit 80 unit/kg (5600 unit) IVPUSH PROTOCOL BOLUS PRN; Protocol PRN Reason: 80 unit/kg - Heparin Protocol Heparin Sodium/Sodium Chloride (Heparin Sodium,Porcine/1/2ns) 25,000 unit in 250 mls @ 0 mls/hr IVCONT .Q0M [facility]ALI; Protocol Last Titration: 05/11/24 10:05 Dose: 12 units/kg/hr, 8.4 mls/hr Magnesium Hydroxide (Milk Of Magnesia 30 Ml Oral.Susp) 30 ml PO DAILY PRN PRN Reason: Constipation Melatonin (Melatonin 3 Mg Tablet) 6 mg PO BEDTIME PRN PRN Reason: Insomnia Metoprolol Tartrate (Metoprolol Tartrate 25 Mg Tablet) 25 mg PO BID [facility]; Protocol Last Admin: 05/11/24 10:51 Dose: 25 mg Sodium Chloride (0.9 % Sodium Chloride Flush 3 Ml Syringe) 3 ml IVFLUSH QSHIFT [facility] Last Admin: 05/11/24 10:54 Dose: 3 ml Home Medications ?Medication ?Instructions ?Recorded ?Confirmed ?Last Taken ?Type No Known Home Meds 05/11/24 05/11/24 Unknown History Physical Exam 2 Vital Signs: Vital Signs: Last Vital Signs Temp 97.7 F 05/11/24 05:32 Pulse 85 05/11/24 10:51 Resp 18 05/11/24 09:21 BP 112/70 05/11/24 10:51 Pulse Ox 98 05/11/24 09:21 O2 Del Method Nasal Cannula 05/11/24 09:21 O2 Flow Rate 2 05/11/24 09:21 Oxygen Flow Rate 2 05/10/24 15:42 BMI result Body Mass Index 25.7 Const: General: comfortable and no acute distress O rientation/consciousness: patient oriented x3 HEENT: Ears: hearing grossly normal bilaterally Resp: Effort & Inspection: normal respiratory effort and able to speak in complete sentences Auscultation: clear to auscultation bilaterally Cardio: Rate: regular rate Rhythm: regular rhythm Heart sounds: S1 normal heart sound present and S2 normal heart sound present Bruits: no abdominal aortic bruits, no carotid bruits, no femoral bruits and no renal bruits GI: Palpation (GI): No Abdominal aortic bruit present Neuro: General: patient oriented x3 Cranial nerves: Yes Normal hearing present Sensory Exam: No Sensory deficit (Neuro) Extrem: Other: Bilateral lower extremities: +1/2 pitting edema noted. Doppler DP pulses. No wounds noted. Results Labs 05/11/24 09:23 05/11/24 09:23 Labs: Abnormal lab results 05/10/24 05/10/24 05/10/24 Range/Units 17:00 17:20 17:51 RBC 6.51 H D (4.60-5.80) X10*6/uL Hgb 18.4 H D (14.0-18.0) g/dl Hct 55.8 H D (42.0-52.0) % RDW 18.8 H (11.0-16.0) % Plt Count 101 L D (160-400) X10*3/uL MPV 12.9 H (9.4-12.4) fL Immature Gran % (Auto) 0.6 H (0.0-0.4) % Lymph % (Auto) 18.2 L (20-40) % [place] % (Auto) 12.3 H (2-11) % Abs Immat Gran (auto) 0.04 H (0.00-0.03) X10*3/uL PT 14.0 H (10.9-12.4) SEC INR 1.2 H (0.9-1.1) aPTT Heparin Protocol (53-77.9) SEC Potassium 5.4 H (3.3-5.1) mmol/L BUN 29 H (9-16) mg/dL Creatinine 1.49 H (0.5-1.4) mg/dL Random Glucose 146 H (60-115) mg/dL Lactic Acid 2.4 H* (0.5-2.0) mmol/L Lactic Acid F/U @ 2Hr (0.5-2.0) mmol/L Lactic Acid F/U @ 4Hr (0.5-2.0) mmol/L Total Bilirubin 1.6 H (0.0-1.0) mg/dL AST 47 H (5-37) U/L ALT 54 H (0-40) U/L Troponin I High Sens 2569.4 H* (<3.5-35.0) ng/L B-Natriuretic Peptide 4893 H (<100) pg/mL Total Protein 5.9 L (6.5-8.0) g/dL Albumin 3.4 L (3.5-5.0) g/dL 05/10/24 05/11/24 05/11/24 Range/Units 21:11 00:03 05:43 RBC 6.15 H (4.60-5.80) X10*6/uL Hgb (14.0-18.0) g/dl Hct 52.1 H (42.0-52.0) % RDW 18.5 H (11.0-16.0) % Plt Count 91 L (160-400) X10*3/uL MPV (9.4-12.4) fL Immature Gran % (Auto) (0.0-0.4) % Lymph % (Auto) (20-40) % [place] % (Auto) 14.2 H (2-11) % Abs Immat Gran (auto) (0.00-0.03) X10*3/uL PT (10.9-12.4) SEC INR (0.9-1.1) aPTT Heparin Protocol (53-77.9) SEC Potassium (3.3-5.1) mmol/L BUN (9-16) mg/dL Creatinine (0.5-1.4) mg/dL Random Glucose (60-115) mg/dL Lactic Acid (0.5-2.0) mmol/L Lactic Acid F/U @ 2Hr 3.4 H* (0.5-2.0) mmol/L Lactic Acid F/U @ 4Hr 2.7 H* (0.5-2.0) mmol/L Total Bilirubin (0.0-1.0) mg/dL AST (5-37) U/L ALT (0-40) U/L Troponin I High Sens 2816.1 H* (<3.5-35.0) ng/L B-Natriuretic Peptide (<100) pg/mL Total Protein (6.5-8.0) g/dL Albumin (3.5-5.0) g/dL 05/11/24 Range/Units 09:23 RBC 6.10 H (4.60-5.80) X10*6/uL Hgb (14.0-18.0) g/dl Hct (42.0-52.0) % RDW 18.2 H (11.0-16.0) % Plt Count 80 L (160-400) X10*3/uL MPV (9.4-12.4) fL Immature Gran % (Auto) (0.0-0.4) % Lymph % (Auto) (20-40) % [place] % (Auto) (2-11) % Abs Immat Gran (auto) (0.00-0.03) X10*3/uL PT (10.9-12.4) SEC INR (0.9-1.1) aPTT Heparin Protocol 94.9 H (53-77.9) SEC Potassium (3.3-5.1) mmol/L BUN 32 H (9-16) mg/dL Creatinine 1.43 H (0.5-1.4) mg/dL Random Glucose 227 H (60-115) mg/dL Lactic Acid (0.5-2.0) mmol/L Lactic Acid F/U @ 2Hr (0.5-2.0) mmol/L Lactic Acid F/U @ 4Hr (0.5-2.0) mmol/L Total Bilirubin 1.2 H (0.0-1.0) mg/dL AST 58 H (5-37) U/L ALT 65 H (0-40) U/L Troponin I High Sens 2317.9 H* (<3.5-35.0) ng/L B-Natriuretic Peptide (<100) pg/mL Total Protein 5.0 L (6.5-8.0) g/dL Albumin 2.8 L (3.5-5.0) g/dL Short CBC 05/10/24 05/11/24 05/11/24 Range/Units 17:00 05:43 09:23 WBC 6.9 7.5 6.5 (4.8-10.8) X10*3/uL Hgb 18.4 H D 17.4 17.5 (14.0-18.0) g/dl Hct 55.8 H D 52.1 H 51.0 (42.0-52.0) % Plt Count 101 L D 91 L 80 L (160-400) X10*3/uL BMP 05/10/24 05/11/24 17:51 09:23 Sodium 139 138 Potassium 5.4 H 4.7 Chloride 103 105 Carbon Dioxide 27 23 BUN 29 H 32 H Creatinine 1.49 H 1.43 H Calcium 9.4 D 8.6 D Liver Function 05/10/24 05/11/24 Range/Units 17:51 09:23 Total Bilirubin 1.6 H 1.2 H (0.0-1.0) mg/dL AST 47 H 58 H (5-37) U/L ALT 54 H 65 H (0-40) U/L Alkaline Phosphatase 112 100 (39-117) U/L Albumin 3.4 L 2.8 L (3.5-5.0) g/dL All other labs normal. Assessment and Plan (1) AAA (abdominal aortic aneurysm): Qualifiers: Abdominal aorta location: infrarenal aorta Presence of rupture: r uptured Qualified Code(s): I71.33 - Infrarenal abdominal aortic aneurysm, ruptured Status: Acute Plan We were consulted on Curt, a pleasant 78 yo male patient, for findings on CTA of an infrarenal AAA of 5.2x5.5cm (previous hx of rupture >9.0cm at [facility] in 2021), occluded left iliac artery, and intraluminal thrombus in the distal descending thoracic aorta without occlusion in the proximal arterial graft. The pt did not have follow up with [facility] after the AAA surgery in 2021 and has not been seen by Vascular since, per pt. He denies any abd or lower back pain. He is currently being treated for pneumonia, NSTEMI, and CHF exacerbation. I discussed with the pt this morning that there is no acute surgical intervention, as discussed with Dr Mcfadden last night. I discussed with the pt that he will need to have outpatient follow up and he can go back to [facility] or transfer his Vascular care here. The pt states he would like to transfer care here. I discussed with him the importance of follow up. We will continue to follow. If there are any questions or concerns, please do not hesitate to reach out to us. Procedures Date of Service Date of Service: 05/11/24
--- NOTE | 2024-05-11 11:54 | PM.CNCAR ---
History of Present Illness History of Present Illness Date of Service: 05/11/24 Chief complaint: New CHF Narrative: This is a cardiology consultation regarding elevated troponins and elevated cardiac BNP. Essentially, patient does not like to see doctors and does not take any medications either. Discussed with the patient's significant other as well as treva. It seems he has a history of COPD, abdominal aortic aneurysm status post repair and he is a chronic smoker. Continues to smoke heavily. With this background, he apparently came because of leg swelling and some shortness of breath but no clear chest pains. Labs were checked and they were found to have elevated troponins and elevated cardiac BNP. Subsequently, he also underwent imaging of his chest and abdomen but apparently revealed no acute findings and discussion was made with vascular surgery at [facility]. Then he was admitted to [facility]. Currently, he states he is comfortable but minimal history from patient and he is also very vague. Family is at the bedside. He denies any anginal-type chest pains. Review of Systems Review of Systems: Yes all other systems are reviewed and are negative Constitutional: Constitutional: Reports as per HPI and Reports no additional constitutional complaints Eyes: Eyes: Reports as per HPI and Denies no additional eye complaints ENT: Denies system reviewed and no additional complaints, except as documented and Reports as per HPI Cardiovascular: Cardiovascular: Reports as per HPI, Reports no additional cardiovascular complaints, Denies acrocyanosis, Denies cool extremities, Denies chest pain, Reports leg edema, Denies lightheadedness, Denies palpitations and Reports dyspnea Respiratory: Respiratory: Reports as per HPI, Denies no additional respiratory complaints and Reports dyspnea Gastrointestinal: Gastrointestinal: Reports as per HPI and Denies no additional gastrointestinal complaints Genitourinary: Genitourinary: Reports no additional male genitourinary complaints and Reports as per HPI Musculoskeletal: Musculoskeletal: Reports no additional musculoskeletal complaints and Reports as per HPI Integumentary/Breasts: Skin/Breast: Reports system reviewed and no additional complaints, except as docu Neurologic: Reports system reviewed and no additional complaints, except as documented and Reports as per HPI Psychiatric: Psychiatric: Reports no additional psychiatric complaints and Reports as per HPI Endocrine: Endocrine: Reports no additional endocrine complaints, Reports as per HPI and Denies palpitations Hematologic/Lymphatic: Hematologic/Lymphatic: Reports no additional hematologic/lymphatic complaints and Reports as per HPI Allergic/Immunologic: Allergic/Immunologic: Reports no additional allergic/immunologic complaints and Reports as per [facility] Past Medical History Medical History (Updated 05/11/24 @ 12:13 by Richard Brown MD) Allergy to atorvastatin RBBB Colonoscopy refused Hyperlipidemia HTN (hypertension) AAA (abdominal aortic aneurysm) Tobacco abuse, in remission COPD (chronic obstructive pulmonary disease) Ruptured abdominal aortic aneurysm (AAA) Family History Family History Father Aneurysm Mother No problems noted. Surgical History Surgical History Hx of appendectomy Social History Social History (Updated 05/11/24 @ 12:13 by Richard Brown MD) Household Members Other:: , Housing: Apartment Patient Tobacco Use Status: Current everyday Tobacco user e-Cigarette/Vaping Use: Never Used Current occupational status: retired Cognitive needs: No Hearing needs: No Vision needs: No Meds Allergies Allergy/AdvReac Type Severity Reaction Status Date / Time atorvastatin Allergy Intermediate rash Verified 05/10/24 15:43 Active Medications: Current Medications Acetaminophen (Acetaminophen 325 Mg Tablet) 650 mg PO Q6H PRN PRN Reason: Pain, Mild 1-3,fever,headache Albuterol/Ipratropium (Albuterol/Iprat 2.5/0.5mg 3 Ml Ampul.Neb) 3 ml INHALE Q4H PRN PRN Reason: Shortness of Breath/Wheezing Aspirin (Aspirin Enteric Coated 81 Mg Tablet.Dr) 81 mg PO DAILY MAGALI Last Admin: 05/11/24 10:51 Dose: 81 mg Benzonatate (Benzonatate 100 Mg Capsule) 100 mg PO TID PRN PRN Reason: Cough Calcium Carbonate (Calcium Carbonate 750 Mg Tab.Chew) 750 mg PO Q4H PRN PRN Reason: Heartburn Furosemide (Furosemide 40 Mg/4 Ml Vial) 40 mg IVPUSH DAILY [facility]; Protocol Last Admin: 05/11/24 10:51 Dose: 40 mg Heparin Sodium (Porcine) (Heparin Sodium,Porcine 5,000 Unit/Ml Vial) 2,800 unit 40 unit/kg (2800 unit) IVPUSH PROTOCOL BOLUS PRN; Protocol PRN Reason: 40 unit/kg - Heparin Protocol Heparin Sodium (Porcine) (Heparin Sodium,Porcine 5,000 Unit/Ml Vial) 5,600 unit 80 unit/kg (5600 unit) IVPUSH PROTOCOL BOLUS PRN; Protocol PRN Reason: 80 unit/kg - Heparin Protocol Heparin Sodium/Sodium Chloride (Heparin Sodium,Porcine/1/2ns) 25,000 unit in 250 mls @ 0 mls/hr IVCONT .Q0M [facility]; Protocol Last Titration: 05/11/24 11:17 Dose: 9 units/kg/hr, 6.3 mls/hr Magnesium Hydroxide (Milk Of Magnesia 30 Ml Oral.Susp) 30 ml PO DAILY PRN PRN Reason: Constipation Melatonin (Melatonin 3 Mg Tablet) 6 mg PO BEDTIME PRN PRN Reason: Insomnia Metoprolol Tartrate (Metoprolol Tartrate 25 Mg Tablet) 25 mg PO BID [facility]; Protocol Last Admin: 05/11/24 10:51 Dose: 25 mg Sodium Chloride (0.9 % Sodium Chloride Flush 3 Ml Syringe) [facility] Last Admin: 05/11/24 10:54 Dose: 3 ml Home Medications ?Medication ?Instructions ?Recorded ?Confirmed ?Last Taken ?Type No Known Home Meds 05/11/24 05/11/24 Unknown History Physical Exam Vital Signs: Vital Signs: Last Vital Signs Temp 97.7 F 05/11/24 05:32 Pulse 85 05/11/24 10:51 Resp 18 05/11/24 09:21 BP 112/70 05/11/24 10:51 Pulse Ox 98 05/11/24 09:21 O2 Del Method Nasal Cannula 05/11/24 09:21 O2 Flow Rate 2 05/11/24 09:21 Oxygen Flow Rate 2 05/10/24 15:42 BMI result Body Mass Index 25.7 Const: General: no acute distress, ill appearing and poor hygiene Orientation/consciousness: patient oriented x3 HEENT: Other: Unremarkable Head: Yes normal to inspection Neck: Neck: Yes normal visual inspection Chest: Chest palpation & inspection: normal inspection of the chest Resp: Auscultation: diminished lung sounds Cardio: Palpation: normal PMI Heart sounds: S1 normal heart sound present, S2 normal heart sound present, no gallops, no murmurs and no rubs GI: Palpation (GI): Soft to palpation Back/Spine/Pelvis: Other: unremarkable Skin: General skin exam: no rashes or lesions noted Neuro: General: patient oriented x3 Extrem: Other: 1+ edema General: Yes normal to inspection Psych: Mental Status: mental status grossly normal Objective Labs and Meds 05/11/24 09:23 05/11/24 09:23 Lab results: Laboratory Results - last 24 hr 05/10/24 05/10/24 05/10/24 17:00 17:20 17:51 WBC 6.9 RBC 6.51 H D Hgb 18.4 H D Hct 55.8 H D MCV 85.7 MCH 28.3 MCHC 33.0 RDW 18.8 H Plt Count 101 L D MPV 12.9 H Immature Gran % (Auto) 0.6 H Neut % (Auto) 67.6 Lymph % (Auto) 18.2 L [place] % (Auto) 12.3 H Eos % (Auto) 0.4 Baso % (Auto) 0.9 Lymph # (Auto) 1.3 [place] # (Auto) 0.9 Eos # (Auto) 0.0 Baso # (Auto) 0.1 Abs Immat Gran (auto) 0.04 H Absolute Neuts (auto) 4.7 Absolute Nucleated RBC 0.000 Nucleated RBC % (auto) 0.0 PT 14.0 H INR 1.2 H APTT 27.1 aPTT Heparin Protocol Sodium 139 Potassium 5.4 H Chloride 103 Carbon Dioxide 27 Anion Gap 14 BUN 29 H Creatinine 1.49 H Estim Creat Clear Calc 36.6 Estimated GFR 46 Random Glucose 146 H Lactic Acid 2.4 H* Lactic Acid F/U @ 2Hr Lactic Acid F/U @ 4Hr Calcium 9.4 D Total Bilirubin 1.6 H AST 47 H ALT 54 H Alkaline Phosphatase 112 Troponin I High Sens 2569.4 H* B-Natriuretic Peptide 4893 H Total Protein 5.9 L Albumin 3.4 L Influenza Type A (PCR) NEGATIVE Influenza Type B (PCR) NEGATIVE RSV RNA Qual (PCR) NEGATIVE SARS-CoV-2 RNA (RT-PCR) NEGATIVE 05/10/24 05/11/24 05/11/24 21:11 00:03 05:43 WBC 7.5 RBC 6.15 H Hgb 17.4 Hct 52.1 H MCV 84.7 MCH 28.3 MCHC 33.4 RDW 18.5 H Plt Count 91 L MPV 12.4 Immature Gran % (Auto) 0.4 Neut % (Auto) 63.8 Lymph % (Auto) 20.1 [place] % (Auto) 14.2 H Eos % (Auto) 0.4 Baso % (Auto) 1.1 Lymph # (Auto) 1.5 [place] # (Auto) 1.1 Eos # (Auto) 0.0 Baso # (Auto) 0.1 Abs Immat Gran (auto) 0.03 Absolute Neuts (auto) 4.8 Absolute Nucleated RBC 0.000 Nucleated RBC % (auto) 0.0 PT INR APTT aPTT Heparin Protocol Sodium Potassium Chloride Carbon Dioxide Anion Gap BUN Creatinine Estim Creat Clear Calc Estimated GFR Random Glucose Lactic Acid Lactic Acid F/U @ 2Hr 3.4 H* Lactic Acid F/U @ 4Hr 2.7 H* Calcium Total Bilirubin AST ALT Alkaline Phosphatase Troponin I High Sens 2816.1 H* B-Natriuretic Peptide Total Protein Albumin Influenza Type A (PCR) Influenza Type B (PCR) RSV RNA Qual (PCR) SARS-CoV-2 RNA (RT-PCR) 05/11/24 09:23 WBC 6.5 RBC 6.10 H Hgb 17.5 Hct 51.0 MCV 83.6 MCH 28.7 MCHC 34.3 RDW 18.2 H Plt Count 80 L MPV 12.2 Immature Gran % (Auto) Neut % (Auto) Lymph % (Auto) [place] % (Auto) Eos % (Auto) Baso % (Auto) Lymph # (Auto) [place] # (Auto) Eos # (Auto) Baso # (Auto) Abs Immat Gran (auto) Absolute Neuts (auto) Absolute Nucleated RBC 0.000 Nucleated RBC % (auto) 0.0 PT INR APTT aPTT Heparin Protocol 94.9 H Sodium 138 Potassium 4.7 Chloride 105 Carbon Dioxide 23 Anion Gap 15 BUN 32 H Creatinine 1.43 H Estim Creat Clear Calc 38.2 Estimated GFR 48 Random Glucose 227 H Lactic Acid Lactic Acid F/U @ 2Hr Lactic Acid F/U @ 4Hr Calcium 8.6 D Total Bilirubin 1.2 H AST 58 H ALT 65 H Alkaline Phosphatase 100 Troponin I High Sens 2317.9 H* B-Natriuretic Peptide Total Protein 5.0 L Albumin 2.8 L Influenza Type A (PCR) Influenza Type B (PCR) RSV RNA Qual (PCR) SARS-CoV-2 RNA (RT-PCR) ECG Interpretation: EKG with underlying sinus rhythm at 94/Min; leftward axis; right bundle-branch block pattern; inferior infarct. Imaging Radiologist's impression: Impressions Chest X-Ray 05/10/24 15:39 IMPRESSION: 1. Right basilar airspace consolidation consistent with pneumonia. Cannot exclude a tiny parapneumonic effusion given the appearance. Electronically signed by: Issac Dash MD 05/10/2024 04:02 PM EDT RP Assessment and Plan (1) NSTEMI (non-ST elevated myocardial infarction): Status: Acute (2) Acute combined systolic and diastolic congestive heart failure: Status: Acute (3) Left ventricular thrombus: Status: Acute Plan In the echocardiogram, severe LV dysfunction with wall motion abnormalities consistent with underlying coronary disease; there is also evidence of left ventricular apical thrombus. Pulmonary hypertension. More than likely, the LV dysfunction/coronary disease could be chronic. Troponin levels are over 2000. Cardiac BNP is elevated over [address] chest and abdomen findings reviewed. Overall, vasculopath, highly likely to have significant coronary disease including probably severe triple-vessel disease plus left main, likely congestive heart failure, NSTEMI could be primary or second-degree. Based on overall health, frailty, noncompliance, cardiac and vascular findings, he is at very high risk for decompensation and . At the current time, we will treat him with IV heparin drip, aspirin, beta-blockers. There is a listed allergy of atorvastatin/rash. Need to clarify that. Otherwise, I am not entirely clear if he will actually benefit from cardiac catheterization as even if we find severe triple-vessel disease, he will not be a candidate for CABG. May not be suitable for PCI alone either if he is not going to take medications. Hence we will keep her on medical therapy for the next couple of days, monitoring then decide. Goals of care to be decided. Discussed with significant other as well as stepson. Procedures Date of Service Date of Service: 05/11/24
--- NOTE | 2024-05-11 14:35 | PC.NURSE ---
Patient states he feels SOB, hospitalist aware
--- NOTE | 2024-05-11 14:39 | MHC.CM.PN ---
PT LIVES WITH FAMILY IN HOUSE DOES NOT RECEIVE SERVICES USES [facility] PCP-[facility] NO HCP IMM DELIVERED DC- HOME SELF CARE VIA PRIVATE TRANSPORT
--- NOTE | 2024-05-11 15:05 | PC.NURSE ---
hospitalist at bedside, no urine in external catheter, patient states he is SOB, urinary catheter placed per hospitalist, cardiology at bedside to discuss care
[2024-05-11] MEDS: Furosemide 200 MG in 0.9 % Sodium Chloride 80 ML IVCONT (16:17)
--- NOTE | 2024-05-11 16:51 | P.EN_ITS ---
Event Note Date of Service: 05/11/24 Event Note: Patient earlier complained of SOB with increased O2 need. On exam, appeared congested with persistent leg edema, seemed anxious, and had a transient SBP drop to 87, which improved without intervention. Plan: * Discussed with cardiology, prognosis poor. * Attempted to contact son, no answer--[phone] * Mariano placed (clear urine), appeared more comfortable. * Started on Lasix drip, Metoprolol held. Will continue to monitor closely and if worsens will need to be transferred to ICU . Time Spent With Patient Time: Total time managing care of this patient today ____ minutes.
[2024-05-11 17:21] LABS: PTT Heparin Drip 80.8 SEC (53-77.9)
[2024-05-12] VITALS (8 sets, daily range): BP systolic 88–114; BP diastolic 52–79; PULSE 64–86; RESP 12–20; TEMP 36.2–36.8; O2SAT 94–98
[2024-05-12 00:47] LABS: PTT Heparin Drip 54.4 SEC (53-77.9)
[2024-05-12] MEDS: Heparin Sodium,Porcine/1/2NS 25,000 UNIT/250 ML IV.SOLN 4.9 UNIT IVCONT (02:11)
[2024-05-12 08:18] LABS: PTT Heparin Drip 55.4 SEC (53-77.9)
[2024-05-12 08:22] LABS: Hematocrit 50.3 % (42.0-52.0); Hemoglobin 17.5 g/dl (14.0-18.0); Mean Corpuscular HGB Conc 34.8 g/dl (31.0-36.0); Mean Corpuscular Hemoglobin 28.4 pg (27.0-33.0); Mean Corpuscular Volume 81.7 fL (80.0-98.0); PLT CLUMP 1; Red Blood Count 6.16 X10*6/uL (4.60-5.80)
[2024-05-12 08:26] LABS: White Blood Count 8.3 X10*3/uL (4.8-10.8)
[2024-05-12 08:50] LABS: Alanine Aminotransferase 480 U/L (0-40); Albumin Level 2.9 g/dL (3.5-5.0); Alkaline Phosphatase 111 U/L (39-117); Anion Gap 17 (12-20); Aspartate Amino Transferase 633 U/L (5-37); Bilirubin Total 1.2 mg/dL (0.0-1.0); Blood Urea Nitrogen 37 mg/dL (9-16); Calcium 8.7 mg/dL (8.4-10.2); Carbon Dioxide 26 mmol/L (22-29); Chloride 101 mmol/L (96-108); Cholesterol 110 mg/dL (<200); Creatinine Clr Calc Pharmacy 33.9; Estimated Glomerular Filt Rate 42; Glucose Random 131 mg/dL (60-115); HDL Cholesterol 32 mg/dL (>40); LDL Cholesterol Calculated 70 mg/dL (<100); Potassium 4.3 mmol/L (3.3-5.1); Sodium 140 mmol/L (135-145); Triglycerides 43 mg/dL (<150)
[2024-05-12 08:54] LABS: B Type Natriuretic Peptide 3902 pg/mL (<100)
[2024-05-12] MEDS: Aspirin Enteric Coated 81 MG TABLET.DR PO (08:59)
[2024-05-12 09:01] LABS: Platelet Count 80 X10*3/uL (160-400)
[2024-05-12 09:07] LABS: Thyroid Stimulating Hormone 1.31 uIU/mL (0.32-4.0)
--- NOTE | 2024-05-12 09:09 | PM.PNCARD ---
Subjective Subjective Date of Service: 05/12/24 Interval history: He states he is feeling better. No acute complaints. No chest pains. Review of Systems Review of Systems Yes all other systems are reviewed and are negative Constitutional: Reports as per HPI and Reports no additional constitutional complaints Eyes: Reports as per HPI and Denies no additional eye complaints Denies system reviewed and no additional complaints, except as documented and Reports as per HPI Cardiovascular: Reports as per HPI, Reports no additional cardiovascular complaints, Denies acrocyanosis, Denies cool extremities, Denies chest pain, Reports leg edema, Denies lightheadedness, Denies palpitations and Reports dyspnea Respiratory: Reports as per HPI, Denies no additional respiratory complaints and Reports dyspnea Gastrointestinal: Reports as per HPI and Denies no additional gastrointestinal complaints Genitourinary: Reports no additional male genitourinary complaints and Reports as per HPI Musculoskeletal: Reports no additional musculoskeletal complaints and Reports as per HPI Skin/Breast: Reports system reviewed and no additional complaints, except as docu Reports system reviewed and no additional complaints, except as documented and Reports as per HPI Psychiatric: Reports no additional psychiatric complaints and Reports as per HPI Endocrine: Reports no additional endocrine complaints, Reports as per HPI and Denies palpitations Hematologic/Lymphatic: Reports no additional hematologic/lymphatic complaints and Reports as per HPI Allergic/Immunologic: Reports no additional allergic/immunologic complaints and Reports as per HPI Physical Exam Vital Signs: Last Vital Signs Temp 97.1 F 05/12/24 07:23 Pulse 64 05/12/24 07:23 Resp 12 05/12/24 07:23 BP 99/71 05/12/24 07:23 Pulse Ox 95 05/12/24 07:23 O2 Del Method Nasal Cannula 05/12/24 07:23 O2 Flow Rate 2 05/12/24 07:23 Oxygen Flow Rate 2 05/10/24 15:42 BMI result Body Mass Index 25.7 Const General: no acute distress, ill appearing and poor hygiene Orientation/consciousness: patient oriented x3 HEENT Other: Unremarkable Head: Yes normal to inspection Neck Neck: Yes normal visual inspection Chest Chest palpation & inspection: normal inspection of the chest Resp Auscultation: diminished lung sounds Cardio Palpation: normal PMI Heart sounds: S1 normal heart sound present, S2 normal heart sound present, no gallops, no murmurs and no rubs GI Palpation (GI): Soft to palpation Back/Spine/Pelvis Other: unremarkable Skin General skin exam: no rashes or lesions noted Neuro General: patient oriented x3 Extrem Other: 1+ edema General: Yes normal to inspection Psych Mental Status: mental status grossly normal Objective Labs and Meds 05/12/24 06:55 05/12/24 06:55 Lab results: Laboratory Results - last 24 hr 05/11/24 05/11/24 05/12/24 09:23 17:04 00:31 WBC 6.5 RBC 6.10 H Hgb 17.5 Hct 51.0 MCV 83.6 MCH 28.7 MCHC 34.3 RDW 18.2 H Plt Count 80 L MPV 12.2 Absolute Nucleated RBC 0.000 Nucleated RBC % (auto) 0.0 aPTT Heparin Protocol 94.9 H 80.8 H 54.4 D Sodium 138 Potassium 4.7 Chloride 105 Carbon Dioxide 23 Anion Gap 15 BUN 32 H Creatinine 1.43 H Estim Creat Clear Calc 38.2 Estimated GFR 48 Random Glucose 227 H Calcium 8.6 D Total Bilirubin 1.2 H AST 58 H ALT 65 H Alkaline Phosphatase 100 Troponin I High Sens 2317.9 H* B-Natriuretic Peptide Total Protein 5.0 L Albumin 2.8 L Triglycerides Cholesterol LDL Cholesterol, Calc HDL Cholesterol TSH 05/12/24 06:55 WBC 8.3 RBC 6.16 H Hgb 17.5 Hct 50.3 MCV 81.7 MCH 28.4 MCHC 34.8 RDW 18.0 H Plt Count 80 L MPV Not Reportable Absolute Nucleated RBC 0.000 Nucleated RBC % (auto) 0.0 aPTT Heparin Protocol 55.4 Sodium 140 Potassium 4.3 Chloride 101 Carbon Dioxide 26 Anion Gap 17 BUN 37 H Creatinine 1.61 H Estim Creat Clear Calc 33.9 Estimated GFR 42 Random Glucose 131 H Calcium 8.7 Total Bilirubin 1.2 H AST 633 H ALT 480 H Alkaline Phosphatase 111 Troponin I High Sens B-Natriuretic Peptide 3902 H Total Protein 5.0 L Albumin 2.9 L Triglycerides 43 Cholesterol 110 LDL Cholesterol, Calc 70 HDL Cholesterol 32 L TSH 1.31 Progress Note: A&P Assessment and plan (1) NSTEMI (non-ST elevated myocardial infarction): Status: Acute (2) Acute combined systolic and diastolic congestive heart failure: Status: Acute (3) Left ventricular thrombus: Status: Acute Plan In the echocardiogram, severe LV dysfunction with wall motion abnormalities consistent with underlying coronary disease; there is also evidence of left ventricular apical thrombus. Pulmonary hypertension. More than likely, the LV dysfunction/coronary disease could be chronic. Troponin levels are over 2000. Cardiac BNP is elevated over [address] chest and abdomen findings reviewed. Per input/output charting,-3 L. Overall, vasculopath, highly likely to have significant coronary disease including probably severe triple-vessel disease plus left main, likely congestive heart failure, NSTEMI could be primary or second-degree. Based on overall health, frailty, noncompliance, cardiac and vascular findings, he is at very high risk for decompensation and . Keep him on IV heparin drip for 48 hours. Aspirin beta-blockers. Listed to have allergy to statins. He is also on IV diuretic drip and that can be continued for another day. With regard to further plan, poor candidate for diagnostic catheterization. Even if he has significant triple-vessel disease, not a candidate for CABG. Unclear candidacy for PCI as he does not like taking medications at home nor has any inclination for doctor visits. Overall, guarded prognosis. Discussed at length with family yesterday. Discussed with hospitalist. Time Spent With Patient Time: Total time managing care of this patient today ____ minutes. Progress Note: Quality Stroke Does the patient have a stroke diagnosis?: No Procedures Date of Service Date of Service: 05/12/24
--- NOTE | 2024-05-12 11:40 | HO.PM.IMPN ---
Subjective Subjective Date of Service: 05/12/24 Interval History: f/u on NSTEMI, acute heart failure He's doing better today, no sob, no cp, BP lower but assymptomatic Physical Exam Vital Signs: Vital Signs: Last Vital Signs Temp 97.1 F 05/12/24 07:23 Pulse 64 05/12/24 07:23 Resp 12 05/12/24 07:23 BP 99/71 05/12/24 07:23 Pulse Ox 95 05/12/24 07:23 O2 Del Method Nasal Cannula 05/12/24 07:23 O2 Flow Rate 2 05/12/24 07:23 Oxygen Flow Rate 2 05/10/24 15:42 BMI result Body Mass Index 25.7 General: AO X 3, no acute distress Resp: CTA bilateral, trace leg edema CVS: S1,S2,RRR GI: +BS, NT, no distention Skin: No rash Neuro: motor grossly intact Psych: appropriate affect Objective Data Active Medications Acetaminophen (Acetaminophen 325 Mg Tablet) 650 mg PO Q6H PRN PRN Reason: Pain, Mild 1-3,fever,headache Albuterol/Ipratropium (Albuterol/Iprat 2.5/0.5mg 3 Ml Ampul.Neb) 3 ml INHALE Q4H PRN PRN Reason: Shortness of Breath/Wheezing Aspirin (Aspirin Enteric Coated 81 Mg Tablet.) 81 mg PO DAILY [facility] Last Admin: 05/12/24 08:59 Dose: 81 mg Documented By: GLADYS Benzonatate (Benzonatate 100 Mg Capsule) 100 mg PO TID PRN PRN Reason: Cough Calcium Carbonate (Calcium Carbonate 750 Mg Tab.Chew) 750 mg PO Q4H PRN PRN Reason: Heartburn Heparin Sodium (Porcine) (Heparin Sodium,Porcine 5,000 Unit/Ml Vial) 2,800 unit 40 unit/kg (2800 unit) IVPUSH PROTOCOL BOLUS PRN; Protocol PRN Reason: 40 unit/kg - Heparin Protocol Heparin Sodium (Porcine) (Heparin Sodium,Porcine 5,000 Unit/Ml Vial) 5,600 unit 80 unit/kg (5600 unit) IVPUSH PROTOCOL BOLUS PRN; Protocol PRN Reason: 80 unit/kg - Heparin Protocol Heparin Sodium/Sodium Chloride (Heparin Sodium,Porcine/1/2ns) 25,000 unit in 250 mls @ 0 mls/hr IVCONT .Q0M [facility]; Protocol Last Titration: 05/12/24 08:29 Dose: 7 units/kg/hr, 4.9 mls/hr Documented By: GLADYS Co-signed By: DELOIRS Furosemide 200 mg/ Sodium (Chloride) 100 mls @ 2.5 mls/hr IVCONT .Q24H [facility] Last Infusion: 05/12/24 08:29 Dose: 5 mg/hr, 2.5 mls/hr Documented By: GLADYS Magnesium Hydroxide (Milk Of Magnesia 30 Ml Oral.Susp) 30 ml PO DAILY PRN PRN Reason: Constipation Melatonin (Melatonin 3 Mg Tablet) 6 mg PO BEDTIME PRN PRN Reason: Insomnia Sodium Chloride (0.9 % Sodium Chloride Flush 3 Ml Syringe) 3 ml IVFLUSH QSHIFT [facility] Last Admin: 05/12/24 08:59 Dose: Not Given Documented By: GLADYS Non-Admin Reason: IV Running Labs 05/12/24 06:55 05/12/24 06:55 Labs: Laboratory Results - last 24 hr 05/11/24 05/12/24 05/12/24 17:04 00:31 06:55 MCV 81.7 MCH 28.4 MCHC 34.8 RDW 18.0 H Plt Count 80 L MPV Not Reportable Absolute Nucleated RBC 0.000 Nucleated RBC % (auto) 0.0 aPTT Heparin Protocol 80.8 H 54.4 D 55.4 Anion Gap 17 Estim Creat Clear Calc 33.9 Estimated GFR 42 Random Glucose 131 H Calcium 8.7 Total Bilirubin 1.2 H AST 633 H ALT 480 H Alkaline Phosphatase 111 B-Natriuretic Peptide 3902 H Total Protein 5.0 L Albumin 2.9 L Triglycerides 43 Cholesterol 110 LDL Cholesterol, Calc 70 HDL Cholesterol 32 L TSH 1.31 Microbiology Microbiology Results: Microbiology 05/10/24 17:24 Blood Culture - Preliminary Blood - Venous No growth after 24 hours. 05/10/24 17:20 Blood Culture - Preliminary Blood - Venous No growth after 24 hours. Assessment and Plan (1) NSTEMI (non-ST elevated myocardial infarction): Status: Acute (2) New onset of congestive heart failure: Status: Acute Plan 78-year-old male with a past medical history of HTN, HLD, abdominal aortic aneurysm status post repair, COPD, allergic to statins, BPH presented to the hospital today with a chief complaint of shortness of breath and found to have acute NSTEMI complicated by new onset heart failure. NSTEMI--no chest pain, hemodynamically stable medical management with IV heparin x 48 to 72 hours, ASA, metoprolol. He's alergic to statin.. Lipid profile looks favorable, LDL 70, Chol 110, HDL 32 echocardiogram showed WMA and reduced EF of 20% carddiologyu following, poor prognosis New onset heart failure, likely acute systolic heart failure with anasarca IV Lasix drip echo as above Monitor i/o, weight and electrolytes Ventricular tachy keep K around 4, and mag around 2 HX COPD: No exacerbation. DuoNebs p.r.n.. 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 Current CT angio showed small penetrating atherosclerotic ulcers in the aortic arch and descending thoracic aorta, infrarenal aneurysm sac measuring 5.2x 5.5 cm. Also noted left iliac artery occlusion with patent fem-fem bypass Dr. Mcfadden was notified-mentioned no acute surgical intervention needed currently. Goal blood pressure less than 140/90. Current systolic blood pressure is 130. Continue home metoprolol. Renal infarction/atrophy: Nephrology follow-up recommended. Medication noncompliance: Patient counseled on importance of adhering to the medications. Patient may benefit home visiting nurses at the time of discharge. DVT prophylaxis: Patient on heparin drip Code status: Full code Quality Stroke Does the patient have a stroke diagnosis?: No VTE Prior VTE?: No VTE Risk Level:: Medical - moderate - high VTE Device Contraindication: Treatment Not Indicated VTE Drug Contraindication: N/A - Med Ordered
[2024-05-12] MEDS: Metoprolol Tartrate 12.5 MG HALFTAB PO (11:54)
[2024-05-12 12:00] LABS: Magnesium 1.8 mg/dL (1.6-2.6)
[2024-05-12] MEDS: Magnesium Sulfate/H2O 2 GM/50 ML PIGGYBACK IV (12:49)
[2024-05-12] MEDS: Furosemide 200 MG in 0.9 % Sodium Chloride 80 ML IVCONT (15:52)
[2024-05-13] VITALS: BP 98/64; PULSE 79; RESP 20; TEMP 36.7; O2SAT 98
[2024-05-13] MEDS: Heparin Sodium,Porcine/1/2NS 25,000 UNIT/250 ML IV.SOLN 4.9 UNIT IVCONT (02:28)
[2024-05-13 03:37] VITALS: BP 94/60; PULSE 66; RESP 20; TEMP 36.2; O2SAT 98
[2024-05-13 07:44] LABS: Hematocrit 47.9 % (42.0-52.0); Hemoglobin 16.7 g/dl (14.0-18.0); Mean Corpuscular HGB Conc 34.9 g/dl (31.0-36.0); Mean Corpuscular Hemoglobin 28.5 pg (27.0-33.0); Mean Corpuscular Volume 81.7 fL (80.0-98.0); Mean Platelet Volume 12.1 fL (9.4-12.4); PLT CLUMP 1; Red Blood Count 5.86 X10*6/uL (4.60-5.80); Red Cell Distribution Width 17.3 % (11.0-16.0)
[2024-05-13 07:45] LABS: Platelet Count 80 X10*3/uL (160-400); White Blood Count 6.6 X10*3/uL (4.8-10.8)
[2024-05-13 07:46] LABS: PTT Heparin Drip 52.3 SEC (53-77.9)
[2024-05-13 07:48] LABS: Anion Gap 13 (12-20)
[2024-05-13 07:53] LABS: B Type Natriuretic Peptide 2894 pg/mL (<100)
[2024-05-13] MEDS: Heparin Sodium,Porcine 5,000 UNIT/ML VIAL 2800 UNIT IVPUSH ×2 (07:54→20:31)
[2024-05-13] MEDS: Aspirin Enteric Coated 81 MG TABLET.DR PO (07:54)
[2024-05-13 08:00] VITALS: BP 99/69; PULSE 71; RESP 20; TEMP 36.5; O2SAT 95
[2024-05-13 08:12] LABS: Alanine Aminotransferase 404 U/L (0-40); Albumin Level 2.6 g/dL (3.5-5.0); Alkaline Phosphatase 100 U/L (39-117); Aspartate Amino Transferase 280 U/L (5-37); Bilirubin Total 0.9 mg/dL (0.0-1.0); Blood Urea Nitrogen 38 mg/dL (9-16); Carbon Dioxide 31 mmol/L (22-29); Chloride 99 mmol/L (96-108); Creatinine Clr Calc Pharmacy 41.1; Estimated Glomerular Filt Rate 52; Glucose Random 95 mg/dL (60-115); Potassium 3.6 mmol/L (3.3-5.1); Sodium 139 mmol/L (135-145); Total Protein 4.6 g/dL (6.5-8.0)
--- NOTE | 2024-05-13 10:47 | HO.PM.IMPN ---
Subjective Subjective Date of Service: 05/13/24 Interval History: f/u on NSTEMI, acute heart failure Lasix and beta barry held last night d/t low BP Physical Exam Vital Signs: Vital Signs: Last Vital Signs Temp 97.7 F 05/13/24 08:00 Pulse 71 05/13/24 08:00 Resp 20 05/13/24 08:00 BP 99/69 05/13/24 08:00 Pulse Ox 95 05/13/24 08:00 O2 Del Method Room Air 05/13/24 08:00 O2 Flow Rate 1.5 05/13/24 03:37 Oxygen Flow Rate 2 05/10/24 15:42 BMI result Body Mass Index 25.7 Objective Data Active Medications Acetaminophen (Acetaminophen 325 Mg Tablet) 650 mg PO Q6H PRN PRN Reason: Pain, Mild 1-3,fever,headache Albuterol/Ipratropium (Albuterol/Iprat 2.5/0.5mg 3 Ml Ampul.Neb) 3 ml INHALE Q4H PRN PRN Reason: Shortness of Breath/Wheezing Aspirin (Aspirin Enteric Coated 81 Mg Tablet.Dr) 81 mg PO DAILY [facility] Last Admin: 05/13/24 07:54 Dose: 81 mg Documented By: GLADYS Benzonatate (Benzonatate 100 Mg Capsule) 100 mg PO TID PRN PRN Reason: Cough Calcium Carbonate (Calcium Carbonate 750 Mg Tab.Chew) 750 mg PO Q4H PRN PRN Reason: Heartburn Furosemide (Furosemide 20 Mg/2 Ml Vial) 20 mg IVPUSH Q12H [facility]; Protocol Heparin Sodium (Porcine) (Heparin Sodium,Porcine 5,000 Unit/Ml Vial) 2,800 unit 40 unit/kg (2800 unit) IVPUSH PROTOCOL BOLUS PRN; Protocol PRN Reason: 40 unit/kg - Heparin Protocol Last Admin: 05/13/24 07:54 Dose: 2,800 unit Documented By: GLADYS Heparin Sodium (Porcine) (Heparin Sodium,Porcine 5,000 Unit/Ml Vial) 5,600 unit 80 unit/kg (5600 unit) IVPUSH PROTOCOL BOLUS PRN; Protocol PRN Reason: 80 unit/kg - Heparin Protocol Heparin Sodium/Sodium Chloride (Heparin Sodium,Porcine/1/2ns) 25,000 unit in 250 mls @ 0 mls/hr IVCONT .Q0M [facility]; Protocol Last Titration: 05/13/24 07:48 Dose: 9 units/kg/hr, 6.3 mls/hr Documented By: GLADYS Co-signed By: FADI Magnesium Hydroxide (Milk Of Magnesia 30 Ml Oral.Susp) 30 ml PO DAILY PRN PRN Reason: Constipation Melatonin (Melatonin 3 Mg Tablet) 6 mg PO BEDTIME PRN PRN Reason: Insomnia Sodium Chloride (0.9 % Sodium Chloride Flush 3 Ml Syringe) 3 ml IVFLUSH QSHIFT [facility] Last Admin: 05/13/24 07:57 Dose: Not Given Documented By: GLADYS Non-Admin Reason: IV Running Labs 05/13/24 06:04 05/13/24 06:04 Labs: Laboratory Results - last 24 hr 05/12/24 05/13/24 06:55 06:04 MCV 81.7 MCH 28.5 MCHC 34.9 RDW 17.3 H Plt Count 80 L MPV 12.1 Absolute Nucleated RBC 0.000 Nucleated RBC % (auto) 0.0 aPTT Heparin Protocol 52.3 L Anion Gap 13 Estim Creat Clear Calc 41.1 Estimated GFR 52 Random Glucose 95 Calcium 8.0 L D Magnesium 1.8 Total Bilirubin 0.9 AST 280 H ALT 404 H Alkaline Phosphatase 100 B-Natriuretic Peptide 2894 H Total Protein 4.6 L Albumin 2.6 L Microbiology Microbiology Results: Microbiology 05/10/24 17:24 Blood Culture - Preliminary Blood - Venous No growth after 48 hours. 05/10/24 17:20 Blood Culture - Preliminary Blood - Venous No growth after 48 hours. Assessment and Plan (1) NSTEMI (non-ST elevated myocardial infarction): Status: Acute (2) New onset of congestive heart failure: Status: Acute Plan 78-year-old male with a past medical history of HTN, HLD, abdominal aortic aneurysm status post repair, COPD, allergic to statins, BPH presented to the hospital today with a chief complaint of shortness of breath and found to have acute NSTEMI complicated by new onset heart failure. NSTEMI--no chest pain, hemodynamically tenous, bp on lower side medical management with IV heparin x 48 to 72 hours, ASA, metoprolol when BP ok. He's alergic to statin.. 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 BB when feasible HX COPD: No exacerbation. DuoNebs p.r.n.. 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 Current CT angio showed small penetrating atherosclerotic ulcers in the aortic arch and descending thoracic aorta, infrarenal aneurysm sac measuring 5.2x 5.5 cm. Also noted left iliac artery occlusion with patent fem-fem bypass Dr. Mcfadden was notified-mentioned no acute surgical intervention needed currently. Goal blood pressure less than 140/90. Current systolic blood pressure is 130. Continue home metoprolol. Renal infarction/atrophy: Nephrology follow-up recommended. Medication noncompliance: Patient counseled on importance of adhering to the medications. Patient may benefit home visiting nurses at the time of discharge. DVT prophylaxis: Patient on heparin drip Code status: Full code Quality Stroke Does the patient have a stroke diagnosis?: No VTE Prior VTE?: No VTE Risk Level:: Medical - moderate - high VTE Device Contraindication: Treatment Not Indicated VTE Drug Contraindication: N/A - Med Ordered
[2024-05-13] MEDS: Furosemide 20 MG/2 ML VIAL IVPUSH ×2 (11:41→23:30)
[2024-05-13 12:00] VITALS: BP 106/63; PULSE 71; RESP 20; TEMP 36.4; O2SAT 94
--- NOTE | 2024-05-13 12:48 | PM.PNCARD ---
Subjective Subjective Date of Service: 05/13/24 Interval history: Seen in follow-up. He states he feels okay. No acute chest pain or any other cardiac complaints. Having lunch. Review of Systems Review of Systems Yes all other systems are reviewed and are negative Constitutional: Reports as per HPI and Reports no additional constitutional complaints Eyes: Reports as per HPI and Denies no additional eye complaints Denies system reviewed and no additional complaints, except as documented and Reports as per HPI Cardiovascular: Reports as per HPI, Reports no additional cardiovascular complaints, Denies acrocyanosis, Denies cool extremities, Denies chest pain, Denies leg edema, Denies lightheadedness, Denies palpitations and Denies dyspnea Respiratory: Reports as per HPI, Denies no additional respiratory complaints and Denies dyspnea Gastrointestinal: Reports as per HPI and Denies no additional gastrointestinal complaints Genitourinary: Reports no additional male genitourinary complaints and Reports as per HPI Musculoskeletal: Reports no additional musculoskeletal complaints and Reports as per HPI Skin/Breast: Reports system reviewed and no additional complaints, except as docu Reports system reviewed and no additional complaints, except as documented and Reports as per HPI Psychiatric: Reports no additional psychiatric complaints and Reports as per HPI Endocrine: Reports no additional endocrine complaints, Reports as per HPI and Denies palpitations Hematologic/Lymphatic: Reports no additional hematologic/lymphatic complaints and Reports as per HPI Allergic/Immunologic: Reports no additional allergic/immunologic complaints and Reports as per HPI Physical Exam Vital Signs: Last Vital Signs Temp 97.6 F 05/13/24 12:00 Pulse 71 05/13/24 12:00 Resp 20 05/13/24 12:00 BP 106/63 05/13/24 12:00 Pulse Ox 94 05/13/24 12:00 O2 Del Method Room Air 05/13/24 12:00 O2 Flow Rate 1.5 05/13/24 03:37 Oxygen Flow Rate 2 05/10/24 15:42 BMI result Body Mass Index 25.7 Const General: no acute distress, ill appearing and poor hygiene Orientation/consciousness: patient oriented x3 HEENT Other: Unremarkable Head: Yes normal to inspection Neck Neck: Yes normal visual inspection Chest Chest palpation & inspection: normal inspection of the chest Resp Auscultation: diminished lung sounds Cardio Palpation: normal PMI Heart sounds: S1 normal heart sound present, S2 normal heart sound present, no gallops, no murmurs and no rubs GI Palpation (GI): Soft to palpation Back/Spine/Pelvis Other: unremarkable Skin General skin exam: no rashes or lesions noted Neuro General: patient oriented x3 Extrem Other: 1+ edema General: Yes normal to inspection Psych Mental Status: mental status grossly normal Objective Labs and Meds 05/13/24 06:04 05/13/24 06:04 Lab results: Laboratory Results - last 24 hr 05/13/24 06:04 WBC 6.6 RBC 5.86 H Hgb 16.7 Hct 47.9 MCV 81.7 MCH 28.5 MCHC 34.9 RDW 17.3 H Plt Count 80 L MPV 12.1 Absolute Nucleated RBC 0.000 Nucleated RBC % (auto) 0.0 aPTT Heparin Protocol 52.3 L Sodium 139 Potassium 3.6 Chloride 99 Carbon Dioxide 31 H Anion Gap 13 BUN 38 H Creatinine 1.33 Estim Creat Clear Calc 41.1 Estimated GFR 52 Random Glucose 95 Calcium 8.0 L D Magnesium 2.0 Total Bilirubin 0.9 AST 280 H ALT 404 H Alkaline Phosphatase 100 B-Natriuretic Peptide 2894 H Total Protein 4.6 L Albumin 2.6 L Progress Note: A&P Assessment and plan (1) NSTEMI (non-ST elevated myocardial infarction): Status: Acute (2) Acute combined systolic and diastolic congestive heart failure: Status: Acute (3) Left ventricular thrombus: Status: Acute Plan In the echocardiogram, severe LV dysfunction with wall motion abnormalities consistent with underlying coronary disease; there is also evidence of left ventricular apical thrombus. Pulmonary hypertension. More than likely, the LV dysfunction/coronary disease could be chronic. Troponin levels are over 2000. Cardiac BNP is elevated over [address] chest and abdomen findings reviewed. Per input/output charting,-6 L. Overall, vasculopath, highly likely to have significant coronary disease including probably severe triple-vessel disease plus left main, likely congestive heart failure, NSTEMI could be primary or second-degree. Continue IV heparin. We will need to transition to either Eliquis or Coumadin. I am not entirely clear if he is going to be compliant or not. Also on aspirin. Switch to b.i.d. diuretics. Blood pressure is running lowish and hence not clear if he will be able tolerate any other medications like beta-blockers/Entresto extra. With regard to statins, there is mention of allergy to atorvastatin and also LFTs are elevated. Also he is noncompliant and does not see any medical providers. With regard to further workup, we will sign out to interventional cardiology regarding appropriateness for catheterization. Guarded prognosis and high risk of decompensation and . Discussed with Dr. Finch. Time Spent With Patient Time: Total time managing care of this patient today ____ minutes. Progress Note: Quality Stroke Does the patient have a stroke diagnosis?: No Procedures Date of Service Date of Service: 05/13/24
[2024-05-13 14:38] LABS: PTT Heparin Drip 66.8 SEC (53-77.9)
[2024-05-13 15:38] VITALS: BP 102/61; PULSE 73; RESP 18; TEMP 36.3; O2SAT 99
[2024-05-13 20:07] VITALS: BP 114/72; PULSE 84; TEMP 36.7; O2SAT 95
[2024-05-13 20:09] LABS: PTT Heparin Drip 51.7 SEC (53-77.9)
[2024-05-14] VITALS (8 sets, daily range): BP systolic 102–131; BP diastolic 73–89; PULSE 75–93; RESP 16–20; TEMP 36–36.8; O2SAT 92–98
[2024-05-14] MEDS: Heparin Sodium,Porcine/1/2NS 25,000 UNIT/250 ML IV.SOLN 7.7 UNIT IVCONT (02:20)
[2024-05-14 02:51] LABS: PTT Heparin Drip 102.6 SEC (53-77.9)
[2024-05-14 06:54] LABS: Hematocrit 52.2 % (42.0-52.0); Hemoglobin 17.8 g/dl (14.0-18.0); Mean Corpuscular HGB Conc 34.1 g/dl (31.0-36.0); Mean Corpuscular Hemoglobin 28.6 pg (27.0-33.0); Mean Corpuscular Volume 83.8 fL (80.0-98.0); PLT CLUMP 1; Red Blood Count 6.23 X10*6/uL (4.60-5.80); Red Cell Distribution Width 17.7 % (11.0-16.0)
[2024-05-14 07:14] LABS: Alanine Aminotransferase 371 U/L (0-40); Albumin Level 2.9 g/dL (3.5-5.0); Anion Gap 14 (12-20); Aspartate Amino Transferase 173 U/L (5-37); Bilirubin Total 1.2 mg/dL (0.0-1.0); Blood Urea Nitrogen 36 mg/dL (9-16); Carbon Dioxide 33 mmol/L (22-29); Chloride 96 mmol/L (96-108); Creatinine Clr Calc Pharmacy 47.5; Estimated Glomerular Filt Rate > 60; Glucose Random 129 mg/dL (60-115); Potassium 3.5 mmol/L (3.3-5.1); Sodium 139 mmol/L (135-145); Total Protein 5.1 g/dL (6.5-8.0)
[2024-05-14 07:21] LABS: Alkaline Phosphatase 103 U/L (39-117)
[2024-05-14 07:38] LABS: Mean Platelet Volume 12.1 fL (9.4-12.4); Platelet Count 77 X10*3/uL (160-400); White Blood Count 6.3 X10*3/uL (4.8-10.8)
--- NOTE | 2024-05-14 08:54 | HO.PM.IMPN ---
Subjective Subjective Date of Service: 05/14/24 Interval History: f/u on NSTEMI, acute heart failure doing better, blood pressure is better, he has no chest pain or sob Physical Exam Vital Signs: Vital Signs: Last Vital Signs Temp 98.2 F 05/14/24 07:18 Pulse 78 05/14/24 07:18 Resp 16 05/14/24 07:18 BP 120/81 05/14/24 07:18 Pulse Ox 97 05/14/24 07:18 O2 Del Method Nasal Cannula 05/14/24 07:18 O2 Flow Rate 1 05/14/24 07:18 Oxygen Flow Rate 2 05/10/24 15:42 BMI result Body Mass Index 25.7 General: AO X 3, no acute distress Resp: CTA bilateral, trace leg edema CVS: S1,S2,RRR GI: +BS, NT, no distention Skin: No rash Neuro: motor grossly intact Psych: appropriate affect Objective Data Active Medications Acetaminophen (Acetaminophen 325 Mg Tablet) 650 mg PO Q6H PRN PRN Reason: Pain, Mild 1-3,fever,headache Albuterol/Ipratropium (Albuterol/Iprat 2.5/0.5mg 3 Ml Ampul.Neb) 3 ml INHALE Q4H PRN PRN Reason: Shortness of Breath/Wheezing Aspirin (Aspirin Enteric Coated 81 Mg Tablet.Dr) 81 mg PO DAILY [facility] Last Admin: 05/13/24 07:54 Dose: 81 mg Documented By: GLADYS Benzonatate (Benzonatate 100 Mg Capsule) 100 mg PO TID PRN PRN Reason: Cough Calcium Carbonate (Calcium Carbonate 750 Mg Tab.Chew) 750 mg PO Q4H PRN PRN Reason: Heartburn Furosemide (Furosemide 20 Mg/2 Ml Vial) 20 mg IVPUSH Q12H MAGALI; Protocol Last Admin: 05/13/24 23:30 Dose: 20 mg Documented By: RAFIA Heparin Sodium (Porcine) (Heparin Sodium,Porcine 5,000 Unit/Ml Vial) 2,800 unit 40 unit/kg (2800 unit) IVPUSH PROTOCOL BOLUS PRN; Protocol PRN Reason: 40 unit/kg - Heparin Protocol Last Admin: 05/13/24 20:31 Dose: 2,800 unit Documented By: RAFIA Heparin Sodium (Porcine) (Heparin Sodium,Porcine 5,000 Unit/Ml Vial) 5,600 unit 80 unit/kg (5600 unit) IVPUSH PROTOCOL BOLUS PRN; Protocol PRN Reason: 80 unit/kg - Heparin Protocol Heparin Sodium/Sodium Chloride (Heparin Sodium,Porcine/1/2ns) 25,000 unit in 250 mls @ 0 mls/hr IVCONT .Q0M MAGALI; Protocol Last Titration: 05/14/24 04:10 Dose: 8 units/kg/hr, 5.6 mls/hr Documented By: RAFIA Co-signed By: KAVON Magnesium Hydroxide (Milk Of Magnesia 30 Ml Oral.Susp) 30 ml PO DAILY PRN PRN Reason: Constipation Melatonin (Melatonin 3 Mg Tablet) 6 mg PO BEDTIME PRN PRN Reason: Insomnia Sodium Chloride (0.9 % Sodium Chloride Flush 3 Ml Syringe) 3 ml IVFLUSH QSHIFT [facility] Last Admin: 05/14/24 00:08 Dose: Not Given Documented By: RAFIA Non-Admin Reason: IV Running Labs 05/14/24 06:19 05/14/24 06:19 Labs: Laboratory Results - last 24 hr 05/13/24 05/13/24 05/13/24 06:04 14:11 19:51 MCV MCH MCHC RDW Plt Count MPV Absolute Nucleated RBC Nucleated RBC % (auto) aPTT Heparin Protocol 66.8 D 51.7 L D Anion Gap Estim Creat Clear Calc Estimated GFR Random Glucose Calcium Magnesium 2.0 Total Bilirubin AST ALT Alkaline Phosphatase Total Protein Albumin 05/14/24 05/14/24 02:35 06:19 MCV 83.8 MCH 28.6 MCHC 34.1 RDW 17.7 H Plt Count 77 L MPV 12.1 Absolute Nucleated RBC 0.000 Nucleated RBC % (auto) 0.0 aPTT Heparin Protocol 102.6 H D Anion Gap 14 Estim Creat Clear Calc 47.5 Estimated GFR > 60 Random Glucose 129 H Calcium 8.0 L Magnesium Total Bilirubin 1.2 H AST 173 H ALT 371 H Alkaline Phosphatase 103 Total Protein 5.1 L Albumin 2.9 L Assessment and Plan (1) NSTEMI (non-ST elevated myocardial infarction): Status: Acute (2) New onset of congestive heart failure: Status: Acute Plan 78-year-old male with a past medical history of HTN, HLD, abdominal aortic aneurysm status post repair, COPD, allergic to statins, BPH presented to the hospital today with a chief complaint of shortness of breath and found to have acute NSTEMI complicated by new onset heart failure. NSTEMI, complicated by acute heart failure with reduced EF. medical management with IV heparin, ASA, metoprolol when BP ok. He's alergic to statin.. Lipid profile looks favorable, LDL 70, Chol 110, HDL 32 echocardiogram showed WMA and reduced EF of 20%, cardiology to to decide if will benefit from cath. 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 BB when feasible HX COPD: No exacerbation. DuoNebs p.r.n.. 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 Current CT angio showed small penetrating atherosclerotic ulcers in the aortic arch and descending thoracic aorta, infrarenal aneurysm sac measuring 5.2x 5.5 cm. Also noted left iliac artery occlusion with patent fem-fem bypass Dr. Mcfadden was notified-mentioned no acute surgical intervention needed currently. Goal blood pressure less than 140/90. Current systolic blood pressure is 130. Continue home metoprolol. Renal infarction/atrophy: Nephrology follow-up recommended. Medication noncompliance: Patient counseled on importance of adhering to the medications. Patient may benefit home visiting nurses at the time of discharge. DVT prophylaxis: Patient on heparin drip Code status: Full code Quality Stroke Does the patient have a stroke diagnosis?: No VTE Prior VTE?: No VTE Risk Level:: Medical - moderate - high VTE Device Contraindication: Treatment Not Indicated VTE Drug Contraindication: N/A - Med Ordered
[2024-05-14] MEDS: 0.9 % Sodium Chloride Flush 3 ML SYRINGE IVFLUSH ×2 (09:03→22:16)
--- NOTE | 2024-05-14 10:31 | PM.PNCARD ---
Subjective Subjective Date of Service: 05/14/24 Interval history: The patient was seen examined at bedside. He is saying his breathing is improving but he is still short of breath. No chest discomfort. He has mild peripheral edema still present. Diuresing well with diuretics at this point. Physical Exam Vital Signs: Last Vital Signs Temp 98.2 F 05/14/24 07:18 Pulse 78 05/14/24 07:18 Resp 16 05/14/24 07:18 BP 120/81 05/14/24 07:18 Pulse Ox 97 05/14/24 07:18 O2 Del Method Nasal Cannula 05/14/24 07:18 O2 Flow Rate 1 05/14/24 07:18 Oxygen Flow Rate 2 05/10/24 15:42 BMI result Body Mass Index 25.7 GENERAL APPEARANCE: in no acute distress, on supplemental oxygen. NECK: no carotid bruit, mild jugular venous distention. SKIN: no suspicious lesions, warm and dry. HEART: no murmurs, regular rate and rhythm. LUNGS: clear to auscultation bilaterally. ABDOMEN: soft, nontender. EXTREMITIES: Mild pedal edema. PERIPHERAL PULSES: equal. NEUROLOGIC: No gross deficits, AAO X 3 Objective Labs and Meds 05/14/24 06:19 05/14/24 06:19 Lab results: Laboratory Results - last 24 hr 05/13/24 05/13/24 05/13/24 06:04 14:11 19:51 WBC RBC Hgb Hct MCV MCH MCHC RDW Plt Count MPV Absolute Nucleated RBC Nucleated RBC % (auto) aPTT Heparin Protocol 66.8 D 51.7 L D Sodium Potassium Chloride Carbon Dioxide Anion Gap BUN Creatinine Estim Creat Clear Calc Estimated GFR Random Glucose Calcium Magnesium 2.0 Total Bilirubin AST ALT Alkaline Phosphatase Total Protein Albumin 05/14/24 05/14/24 02:35 06:19 WBC 6.3 RBC 6.23 H Hgb 17.8 Hct 52.2 H MCV 83.8 MCH 28.6 MCHC 34.1 RDW 17.7 H Plt Count 77 L MPV 12.1 Absolute Nucleated RBC 0.000 Nucleated RBC % (auto) 0.0 aPTT Heparin Protocol 102.6 H D Sodium 139 Potassium 3.5 Chloride 96 Carbon Dioxide 33 H Anion Gap 14 BUN 36 H Creatinine 1.15 Estim Creat Clear Calc 47.5 Estimated GFR > 60 Random Glucose 129 H Calcium 8.0 L Magnesium Total Bilirubin 1.2 H AST 173 H ALT 371 H Alkaline Phosphatase 103 Total Protein 5.1 L Albumin 2.9 L Progress Note: A&P Assessment and plan (1) Left ventricular thrombus: Status: Acute (2) Acute combined systolic and diastolic congestive heart failure: Status: Acute Plan Pleasant 78 year gentleman with history of noncompliance who has not been following with any daughter coming with congestive heart failure and new onset cardiomyopathy with EF 20 25% with apical thrombus. Presentation is mostly heart failure at this point and he does not have any significant anginal symptoms. His troponins were elevated though but he also was quite decompensated with elevated BNP levels. Overall clinically improving with diuresis. Adding spironolactone 25 mg daily. If he tolerates this then we will add low-dose ARB. I think we continue diuretics for now. I had discussion with him in detail. He wishes to be medically managed and does not want to pursue invasive testing like cardiac cath. we will optimize him medically and once stable he will be discharged home and will follow up with us. Can transition him to Eiiquis for apical thrombus. Thank you for allowing me to participate in the care of your patient. Please feel free to contact me if you have any questions. Time Spent With Patient Time: Total time managing care of this patient today ____ minutes. Progress Note: Quality Stroke Does the patient have a stroke diagnosis?: No Procedures Date of Service Date of Service: 05/14/24
[2024-05-14 10:45] LABS: PTT Heparin Drip 49.4 SEC (53-77.9)
--- NOTE | 2024-05-14 10:47 | PC.NURSE ---
requesting cook catheter to be removed. Catheter removed at 1045 without incident. Due to void at [phone].
[2024-05-14] MEDS: Furosemide 20 MG/2 ML VIAL IVPUSH ×2 (11:00→22:10)
[2024-05-14] MEDS: Spironolactone 25 MG TABLET PO (11:00)
[2024-05-14] MEDS: Milk of Magnesia 30 ML ORAL.SUSP PO (11:00)
[2024-05-14] MEDS: Heparin Sodium,Porcine 5,000 UNIT/ML VIAL 2800 UNIT IVPUSH (11:01)
--- NOTE | 2024-05-14 11:37 | P.PNVS_ITS ---
Subjective Subjective Date of Service: 05/14/24 Interval history: Curt is doing well. He has no new concerns today. He states he is eating, sleeping, and drinking well. Nursing notes that he is constipated. He denies any abd pain, new lower back pain (he has chronic LBP), or leg pain/discomfort. Physical Exam Vital Signs: Vital Signs: Last Vital Signs Temp 96.8 F 05/14/24 10:42 Pulse 75 05/14/24 10:42 Resp 18 05/14/24 10:42 BP 119/73 05/14/24 10:42 Pulse Ox 98 05/14/24 10:42 O2 Del Method Nasal Cannula 05/14/24 10:42 O2 Flow Rate 1 05/14/24 10:42 Oxygen Flow Rate 2 05/10/24 15:42 BMI result Body Mass Index 25.7 Const: General: comfortable and no acute distress Orientation/consciousness: patient oriented x3 HEENT: Ears: hearing grossly normal bilaterally Resp: Effort & Inspection: normal respiratory effort and able to speak in complete sentences Auscultation: clear to auscultation bilaterally Cardio: Rate: regular rate Rhythm: regular rhythm Heart sounds: S1 normal heart sound present and S2 normal heart sound present Bruits: no abdominal aortic bruits, no carotid bruits, no femoral bruits and no renal bruits GI: Palpation (GI): No Abdominal aortic bruit present Neuro: General: patient oriented x3 Cranial nerves: Yes CN's II-XII intact bilaterally Extrem: Other: Bilateral lower extremities: +1/2 pitting edema noted. Doppler DP pulses. No wounds noted. Progress Note: A&P Assessment and plan (1) AAA (abdominal aortic aneurysm): Status: Acute Assessment and Plan: Curt remains stable from a vascular standpoint. There is no acute surgical intervention needed at this time. I did discuss with Curt again today that it is very important to follow up with Vascular outpatient, whether that be with [facility] or us. He states that he would rather follow up with us. I discussed with him that we would like to see him within 1-2w after being discharged. We will continue to monitor. If there are any questions or concerns, please do not hesitate to reach out to us. Time Spent With Patient Time: Total time managing care of this patient today ____ minutes. Procedures Date of Service Date of Service: 05/14/24 Quality Stroke Does the patient have a stroke diagnosis?: No VTE Prior VTE?: No VTE Risk Level:: Medical - moderate - high VTE Device Contraindication: Treatment Not Indicated VTE Drug Contraindication: N/A - Med Ordered
--- NOTE | 2024-05-14 14:50 | MHC.CM.PN ---
EMR reviewed and per MD rounds, pt is not medically cleared for discharge at this time due to management of NSTEMI, pt on heparin gtt.
[2024-05-14 17:13] LABS: PTT Heparin Drip 71.6 SEC (53-77.9)
[2024-05-14] MEDS: Apixaban 5 MG TABLET PO (22:14)
[2024-05-15 03:12] VITALS: BP 131/86; PULSE 79; RESP 18; TEMP 36.7; O2SAT 98
[2024-05-15 07:11] VITALS: BP 117/77; PULSE 75; RESP 16; TEMP 36.1; O2SAT 98
[2024-05-15 07:21] LABS: Hematocrit 52.3 % (42.0-52.0); Hemoglobin 17.9 g/dl (14.0-18.0); Mean Corpuscular HGB Conc 34.2 g/dl (31.0-36.0); Mean Corpuscular Hemoglobin 28.4 pg (27.0-33.0); PLT CLUMP 1
[2024-05-15 07:23] LABS: Anion Gap 10 (12-20); Blood Urea Nitrogen 26 mg/dL (9-16); Calcium 8.2 mg/dL (8.4-10.2); Carbon Dioxide 36 mmol/L (22-29); Chloride 96 mmol/L (96-108); Estimated Glomerular Filt Rate > 60; Glucose Random 125 mg/dL (60-115); Potassium 3.4 mmol/L (3.3-5.1); Sodium 139 mmol/L (135-145)
[2024-05-15 08:06] LABS: Platelet Count 89 X10*3/uL (160-400)
[2024-05-15] MEDS: 0.9 % Sodium Chloride Flush 3 ML SYRINGE IVFLUSH ×2 (08:17→15:55)
[2024-05-15 08:29] VITALS: BP 117/77
[2024-05-15] MEDS: Apixaban 5 MG TABLET PO ×2 (08:29→20:26)
[2024-05-15] MEDS: Spironolactone 25 MG TABLET PO (08:29)
[2024-05-15] MEDS: Aspirin Enteric Coated 81 MG TABLET.DR PO (08:30)
[2024-05-15 10:55] VITALS: BP 119/77; PULSE 85; RESP 16; TEMP 36.9; O2SAT 97
--- NOTE | 2024-05-15 10:59 | HO.PM.IMPN ---
Subjective Subjective Date of Service: 05/15/24 Interval History: f/u on NSTEMI, acute heart failure hemodynamically stable, Physical Exam Vital Signs: Vital Signs: Last Vital Signs Temp 98.5 F 05/15/24 10:55 Pulse 85 05/15/24 10:55 Resp 16 05/15/24 10:55 BP 119/77 05/15/24 10:55 Pulse Ox 97 05/15/24 10:55 O2 Del Method Room Air 05/15/24 10:55 O2 Flow Rate 1 05/14/24 10:42 Oxygen Flow Rate 2 05/10/24 15:42 BMI result Body Mass Index 25.7 General: AO X 3, no acute distress Resp: CTA bilateral, trace leg edema CVS: S1,S2,RRR GI: +BS, NT, no distention Skin: No rash Neuro: motor grossly intact Psych: appropriate affect Objective Data Active Medications Acetaminophen (Acetaminophen 325 Mg Tablet) 650 mg PO Q6H PRN PRN Reason: Pain, Mild 1-3,fever,headache Albuterol/Ipratropium (Albuterol/Iprat 2.5/0.5mg 3 Ml Ampul.Neb) 3 ml INHALE Q4H PRN PRN Reason: Shortness of Breath/Wheezing Apixaban (Apixaban 5 Mg Tablet) 5 mg PO BID [facility] Last Admin: 05/15/24 08:29 Dose: 5 mg Documented By: RAJWINDER Aspirin (Aspirin Enteric Coated 81 Mg Tablet.) 81 mg PO DAILY [facility] Last Admin: 05/15/24 08:30 Dose: 81 mg Documented By: RAJWINDER Comments: aware and ok to give Benzonatate (Benzonatate 100 Mg Capsule) 100 mg PO TID PRN PRN Reason: Cough Calcium Carbonate (Calcium Carbonate 750 Mg Tab.Chew) 750 mg PO Q4H PRN PRN Reason: Heartburn Furosemide (Furosemide 20 Mg/2 Ml Vial) 20 mg IVPUSH Q12H [facility]; Protocol Last Admin: 05/14/24 22:10 Dose: 20 mg Documented By: RAFIA Losartan Potassium (Losartan Potassium 25 Mg Tablet) 25 mg PO DAILY [facility]; Protocol Magnesium Hydroxide (Milk Of Magnesia 30 Ml Oral.Susp) 30 ml PO DAILY PRN PRN Reason: Constipation Last Admin: 05/14/24 11:00 Dose: 30 ml Documented By: DIMITRI Melatonin (Melatonin 3 Mg Tablet) 6 mg PO BEDTIME PRN PRN Reason: Insomnia Sodium Chloride (0.9 % Sodium Chloride Flush 3 Ml Syringe) 3 ml IVFLUSH QSHIFT [facility] Last Admin: 05/15/24 08:17 Dose: 3 ml Documented By: RAJWINDER Spironolactone (Spironolactone 25 Mg Tablet) 25 mg PO DAILY [facility]; Protocol Last Admin: 05/15/24 08:29 Dose: 25 mg Documented By: RAJWINDER Labs 05/15/24 06:08 05/15/24 06:08 Labs: Laboratory Results - last 24 hr 05/14/24 05/15/24 16:55 06:08 MCV 83.0 MCH 28.4 MCHC 34.2 RDW 18.0 H Plt Count 89 L MPV Not Reportable Absolute Nucleated RBC 0.000 Nucleated RBC % (auto) 0.0 aPTT Heparin Protocol 71.6 D Anion Gap 10 L Estim Creat Clear Calc 52.0 Estimated GFR > 60 Random Glucose 125 H Calcium 8.2 L Assessment and Plan (1) NSTEMI (non-ST elevated myocardial infarction): Status: Acute (2) New onset of congestive heart failure: Status: Acute Plan 78-year-old male with a past medical history of HTN, HLD, abdominal aortic aneurysm status post repair, COPD, allergic to statins, BPH presented to the hospital today with a chief complaint of shortness of breath and found to have acute NSTEMI complicated by new onset heart failure. NSTEMI (troponin peaked at 2816), complicated by acute heart failure with reduced EF and apical thrombus. Medically treated with IV heparin for 3 days, ASA stopped due to low platlets. He's alergic to statin.. Lipid profile looks favorable, LDL 70, Chol 110, HDL 32 He did not tolerate BB due to low BP. He is presently hemodynamically stable. Cardiac saw him and recommends conservative management which patient is agreable to , he doesn't want intervention. Echo showed EF 20% and the inferior wall, inferolateral wall, and apex segment are akinetic. 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 Further management include aldactone and Losartan. He has not tolerated BB due to low BPs APical thrombus on Apixiban One episode Ventricular tachy keep K around 4, and mag around 2. BB when feasible HX COPD: No exacerbation. DuoNebs p.r.n.. 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 Current CT angio showed small penetrating atherosclerotic ulcers in the aortic arch and descending thoracic aorta, infrarenal aneurysm sac measuring 5.2x 5.5 cm. Also noted left iliac artery occlusion with patent fem-fem bypass Dr. Mcfadden was notified-mentioned no acute surgical intervention needed currently. Goal blood pressure less than 140/90. Current systolic blood pressure is 130. Continue home metoprolol. Renal infarction/atrophy: Nephrology follow-up recommended. Medication noncompliance: Patient counseled on importance of adhering to the medications. Patient may benefit home visiting nurses at the time of discharge. DVT prophylaxis: eliquis Code status: Full code PT eval today Quality Stroke Does the patient have a stroke diagnosis?: No VTE Prior VTE?: No VTE Risk Level:: Medical - moderate - high VTE Device Contraindication: Treatment Not Indicated VTE Drug Contraindication: N/A - Med Ordered
[2024-05-15] MEDS: Losartan Potassium 25 MG TABLET PO (11:38)
[2024-05-15] MEDS: diphenhydrAMINE HCL 50 MG/ML VIAL 12.5 MG IVPUSH (12:04)
--- NOTE | 2024-05-15 13:15 | PM.PNCARD ---
Subjective Subjective Date of Service: 05/15/24 Interval history: Seen examined at bedside. Volume status has improved significantly. He has a rash all over his body and he is saying this has been ongoing for few days. Physical Exam Vital Signs: Last Vital Signs Temp 98.5 F 05/15/24 10:55 Pulse 85 05/15/24 10:55 Resp 16 05/15/24 10:55 BP 119/77 05/15/24 10:55 Pulse Ox 97 05/15/24 10:55 O2 Del Method Room Air 05/15/24 10:55 O2 Flow Rate 1 05/14/24 10:42 Oxygen Flow Rate 2 05/10/24 15:42 BMI result Body Mass Index 25.7 GENERAL APPEARANCE: in no acute distress. NECK: no carotid bruit, no JVD. SKIN: Diffuse rash all over the body. HEART: no murmurs, regular rate and rhythm. LUNGS: clear to auscultation bilaterally. ABDOMEN: soft, nontender. EXTREMITIES: No significant edema. PERIPHERAL PULSES: equal. NEUROLOGIC: No gross deficits, AAO X 3 Objective Labs and Meds 05/15/24 06:08 05/15/24 06:08 Lab results: Laboratory Results - last 24 hr 05/14/24 05/15/24 16:55 06:08 WBC 7.0 RBC 6.30 H Hgb 17.9 Hct 52.3 H MCV 83.0 MCH 28.4 MCHC 34.2 RDW 18.0 H Plt Count 89 L MPV Not Reportable Absolute Nucleated RBC 0.000 Nucleated RBC % (auto) 0.0 aPTT Heparin Protocol 71.6 D Sodium 139 Potassium 3.4 Chloride 96 Carbon Dioxide 36 H Anion Gap 10 L BUN 26 H Creatinine 1.05 Estim Creat Clear Calc 52.0 Estimated GFR > 60 Random Glucose 125 H Calcium 8.2 L Progress Note: A&P Assessment and plan (1) Left ventricular thrombus: Status: Acute (2) Acute combined systolic and diastolic congestive heart failure: Status: Acute Plan [age] gentleman with tobacco use and abdominal aortic aneurysm and previous lower extremity bypass surgery presenting with new onset congestive heart failure with RV dysfunction and apical thrombus. No anginal symptoms. Diuresed and improving. The patient has opted for medical management currently and did not want to undergo any procedures. He has a rash on the body and only drug he was receiving consistently was Lasix. It is possible he has sulfa allergy. We will stop the furosemide and use ethacrynic acid at discharge. On apixaban for apical thrombus. Added losartan 25 mg daily. He is on spironolactone 25 mg daily. If tolerates losartan then can try low-dose metoprolol 25 mg Toprol-XL, may be tomorrow. Thank you for allowing me to participate in the care of your patient. Please feel free to contact me if you have any questions. Time Spent With Patient Time: Total time managing care of this patient today ____ minutes. Progress Note: Quality Stroke Does the patient have a stroke diagnosis?: No Procedures Date of Service Date of Service: 05/15/24
[2024-05-15 15:53] VITALS: BP 105/55; PULSE 77; RESP 19; TEMP 36.6; O2SAT 90
[2024-05-15 19:35] VITALS: BP 98/60; PULSE 79; RESP 16; TEMP 36.4; O2SAT 94
[2024-05-16] VITALS: BP 100/60; PULSE 89; RESP 17; TEMP 36.9; O2SAT 96
[2024-05-16] MEDS: Furosemide 20 MG/2 ML VIAL IVPUSH (00:33)
[2024-05-16 04:00] VITALS: BP 94/59; PULSE 85; RESP 17; TEMP 36.7; O2SAT 95
[2024-05-16 07:42] VITALS: BP 108/71; PULSE 82; RESP 18; TEMP 36.5; O2SAT 94
[2024-05-16 07:52] LABS: Hematocrit 51.7 % (42.0-52.0); Hemoglobin 17.4 g/dl (14.0-18.0); Mean Corpuscular HGB Conc 33.7 g/dl (31.0-36.0); Mean Corpuscular Volume 83.3 fL (80.0-98.0); Mean Platelet Volume 13.1 fL (9.4-12.4); PLT CLUMP 1; Red Blood Count 6.21 X10*6/uL (4.60-5.80); Red Cell Distribution Width 18.2 % (11.0-16.0); White Blood Count 7.7 X10*3/uL (4.8-10.8)
[2024-05-16 08:18] LABS: Platelet Count 98 X10*3/uL (160-400)
[2024-05-16 09:45] VITALS: BP 108/71
[2024-05-16] MEDS: Losartan Potassium 25 MG TABLET PO (09:45)
[2024-05-16 09:46] VITALS: BP 108/71
[2024-05-16] MEDS: Aspirin Enteric Coated 81 MG TABLET.DR PO (09:46)
[2024-05-16] MEDS: Spironolactone 25 MG TABLET PO (09:46)
[2024-05-16] MEDS: Apixaban 5 MG TABLET PO (09:46)
[2024-05-16] MEDS: 0.9 % Sodium Chloride Flush 3 ML SYRINGE IVFLUSH (09:46)
[2024-05-16 11:29] VITALS: BP 100/64; PULSE 82; RESP 18; TEMP 36.8; O2SAT 94
--- NOTE | 2024-05-16 14:16 | P.PNCA_ITS ---
Subjective Subjective Date of Service: 05/16/24 Interval history: Seen examined at bedside. Continues to have rash on his body especially the back. Lasix has been discontinued Physical Exam Vital Signs: Last Vital Signs Temp 98.2 F 05/16/24 11:29 Pulse 82 05/16/24 11:29 Resp 18 05/16/24 11:29 BP 100/64 05/16/24 11:29 Pulse Ox 94 05/16/24 11:29 O2 Del Method Room Air 05/16/24 11:29 O2 Flow Rate 1 05/14/24 10:42 Oxygen Flow Rate 2 05/10/24 15:42 BMI result Body Mass Index 25.7 GENERAL APPEARANCE: in no acute distress. NECK: no carotid bruit, no JVD. SKIN: Diffuse rash all over the body. HEART: no murmurs, regular rate and rhythm. LUNGS: clear to auscultation bilaterally. ABDOMEN: soft, nontender. EXTREMITIES: No significant edema. PERIPHERAL PULSES: equal. NEUROLOGIC: No gross deficits, AAO X 3 Objective Labs and Meds 05/16/24 06:36 05/15/24 06:08 Lab results: Laboratory Results - last 24 hr 05/16/24 06:36 WBC 7.7 RBC 6.21 H Hgb 17.4 Hct 51.7 MCV 83.3 MCH 28.0 MCHC 33.7 RDW 18.2 H Plt Count 98 L MPV 13.1 H Absolute Nucleated RBC 0.000 Nucleated RBC % (auto) 0.0 Progress Note: A&P Assessment and plan (1) Acute combined systolic and diastolic congestive heart failure: Status: Acute (2) Left ventricular thrombus: Status: Acute Plan 78-year-old gentleman with tobacco use and abdominal aortic aneurysm and previous lower extremity bypass surgery presenting with new onset congestive heart failure with RV dysfunction and apical thrombus. No anginal symptoms. Diuresed and improving. The patient has opted for medical management currently and did not want to undergo any procedures. He has a rash on the body and only drug he was receiving consistently was Lasix. It is possible he has sulfa allergy. We will stop the furosemide and use ethacrynic acid 50 mg daily at discharge. On apixaban for apical thrombus. Added losartan 25 mg daily. He is on spironolactone 25 mg daily. Blood pressure currently too low to add beta- barry. I think we will look into this as outpatient. Clinically improving and can be discharged home. Thank you for allowing me to participate in the care of your patient. Please feel free to contact me if you have any questions. Time Spent With Patient Time: Total time managing care of this patient today ____ minutes. Progress Note: Quality Stroke Does the patient have a stroke diagnosis?: No Procedures Date of Service Date of Service: 05/16/24
--- NOTE | 2024-05-16 15:06 | MHC.CM.PN ---
Addendum entered by Milena Krueger 05/16/24 15:58: This CM received a return call from pts Cristin, she states her son will come here to pick the pt up today to bring him home. Lyft ride cancelled. Addendum entered by Milena Krueger 05/16/24 15:32: This CM spoke with pt about not being able to reach his . Pt states he is ok with going home via lyft. Pt states he will be going home to [address] [place] [address] in [place] to stay with his , and states he is able to get into the home on his own. Lyft ride booked. Original Note: Second IMM given 05/16. Pt is medically cleared for discharge home with new [facility] services. This CM met with pt to verify his PCP, he was unsure of the PCP's name, per chart review pt was seen by Dr. Leah Snowden in 2021. This CM placed a call to Dr. Snowden's office, and they stated he is 1 day away from not being seen for 3 years (and discharged as a pt), but since we've called today, they will contact him for a post hospital discharge follow up. This CM placed a call to pts spouse Cristin at number in chart, voice message left x 2, awaiting call back. This CM asked pt if there is another number, he provided Cristin's cell phone # [phone], voicemail left, awaiting return call.
--- NOTE | 2024-05-16 15:30 | PM.DS ---
DS: Providers Provider Date of Service: 05/16/24 Date of admission: 05/11/24 01:53 Date of discharge: 05/16/24 Primary care physician: Unknown Physician Consults: 05/11/24 01:50 Consult to Cardiology Routine Consulting Provider: [facility] Reason for consultation: NSTEMI; new CHF Consult to Vascular Surgery Routine Consulting Provider: [facility] Reason for consultation: AAA 5.5 cm, ulcers,thrombus DS: Diagnosis Discharge Diagnosis (1) Acute combined systolic and diastolic congestive heart failure: Status: Acute (2) Left ventricular thrombus: Status: Acute DS: Summary Hospital Course Hospital Course: HPI Chief Complaint: Shortness of breath A 78-year-old male with a past medical history of hypertension (HTN), hyperlipidemia (HLD), abdominal aortic aneurysm status post repair, chronic obstructive pulmonary disease (COPD), statin allergy, and benign prostatic hyperplasia (BPH) presented to the hospital today with a chief complaint of shortness of breath. The patient reports that for the past week, he has experienced bilateral leg swelling, but denies any leg pain, skin changes, or fevers. He also denies any cough or sputum production. He reports shortness of breath, which worsens on exertion, but denies orthopnea or paroxysmal nocturnal dyspnea (PND). Today, his visiting nurse noted hypoxia at home and sent him to the hospital for further evaluation. He reports having had an abdominal aortic aneurysm dissection status post surgery in 2021 and mentions that he is not following up with any doctors. He also reports that he is not taking any medications at home. The patient denies any chest pain, palpitations, numbness, tingling, focal weakness, or gastrointestinal/genitourinary (GI/) symptoms. Review of all other systems is negative except as mentioned above. Emergency Room (ER) Course: According to the ER team, the patient was hypoxic, with oxygen saturation in the mid-80s, and was placed on supplemental oxygen. He was not in respiratory distress and denied chest pain. Chest x-ray showed pulmonary congestion. Bilateral pedal edema was noted. Venous duplex was negative. There was concern for new-onset congestive heart failure (CHF). Laboratory results showed an elevated troponin level, ranging from 2500 to 2800. Cardiology was notified and recommended starting the patient on a heparin drip, with admission to the hospital. A CT angiogram of the chest showed an aortic aneurysm with ulcers and intraluminal thrombus measuring up to 5.5 cm. This was discussed with Dr. Duckworth, who indicated that no acute vascular intervention was needed. The patient was to continue on the heparin drip and was also given aspirin. Hospital course: A 78-year-old male with a past medical history of hypertension (HTN), hyperlipidemia (HLD), abdominal aortic aneurysm status post repair, chronic obstructive pulmonary disease (COPD), statin allergy, and benign prostatic hyperplasia (BPH) presented to the hospital today with a chief complaint of shortness of breath and was found to have acute yyk-IL-gatxinedv myocardial infarction (NSTEMI) complicated by new-onset heart failure. NSTEMI (troponin peaked at 2816), complicated by acute heart failure with reduced ejection fraction (EF) and apical thrombus. Medically treated with intravenous heparin for three days, aspirin (ASA) stopped due to low platelets. He is allergic to statins. Lipid profile looks favorable: LDL 70, cholesterol 110, HDL 32. He did not tolerate beta-blockers (BB) due to low blood pressure. He is presently hemodynamically stable. Cardiology saw him and recommends conservative management, which the patient agrees to; he does not want intervention. Echocardiogram showed EF 20%, and the inferior wall, inferolateral wall, and apex segments are akinetic. New-onset acute systolic heart failure due to ischemic cardiomyopathy, initially treated with intravenous Lasix drip and then changed to Lasix intravenous push, and now changing to oral Lasix 40 mg daily, he developped diffuse maculopapular rash believed to sulfa allergy from Lasix, so cardiology recommend Ethacrynic acid 50 mg daily at discharge. Further management includes spironolactone (aldactone) 25 mg daily and losartan 25 mg daily . He has not tolerated BB due to low blood pressures. Apical thrombus, started on apixaban. One episode of ventricular tachycardia, keep potassium around 4, and magnesium around 2. BB when feasible. History of COPD: No exacerbation. Acute lactic acidosis due to NSTEMI. Mild hyperkalemia, resolved. Thrombocytopenia, appears chronic and platelet count stable, monitor while on heparin, hold ASA for now. Chronic kidney disease (CKD) stage 3, creatinine is improved. Mildly elevated liver function tests (LFTs), monitor, hold statin. Abdominal aortic aneurysm: Left iliac artery occlusion: Patient had abdominal aortic aneurysm dissection in 2021 status post repair. Current CT angiogram showed small penetrating atherosclerotic ulcers in the aortic arch and descending thoracic aorta, infrarenal aneurysm sac measuring 5.2 x 5.5 cm. Also noted left iliac artery occlusion with patent fem-fem bypass. Dr. Mcfadden was notified?mentioned no acute surgical intervention needed currently. Goal blood pressure less than 140/90. Current systolic blood pressure is 130. Continue home metoprolol. Renal infarction/atrophy: Nephrology follow-up recommended. Medication noncompliance: Patient counseled on the importance of adhering to medications. Patient may benefit from home visiting nurses at the time of discharge. Drug rash on Torso, truck no itch, likely sulfa allergy from lasix Dispo: Home with VNA Time Attestation Discharge Coordination Time (in mins): 45 Quality: Safe Use of Opioids Does Pt have an Active Cancer Diagnosis on the Problem List?: No Quality: Stroke Does the patient have a stroke diagnosis?: No Physical Exam Vital Signs: Vital Signs: Last Vital Signs Temp 98.2 F 05/16/24 11:29 Pulse 82 05/16/24 11:29 Resp 18 05/16/24 11:29 BP 100/64 05/16/24 11:29 Pulse Ox 94 05/16/24 11:29 O2 Del Method Room Air 05/16/24 11:29 O2 Flow Rate 1 05/14/24 10:42 Oxygen Flow Rate 2 05/10/24 15:42 BMI result Body Mass Index 25.7 General: AO X 3, no acute distress Resp: CTA bilateral CVS: S1,S2,RRR GI: +BS, NT, no distention Skin: maculopapular rash on chest back abdomen, not on arms or face Neuro: motor grossly intact Psych: appropriate affect DS: Data Data Completed and Pending Labs on day of discharge: Laboratory Results - last 24 hr 05/16/24 06:36 WBC 7.7 RBC 6.21 H Hgb 17.4 Hct 51.7 MCV 83.3 MCH 28.0 MCHC 33.7 RDW 18.2 H Plt Count 98 L MPV 13.1 H Absolute Nucleated RBC 0.000 Nucleated RBC % (auto) 0.0 Discharge Plan Discharge Anticipated Discharge Date/Time: 05/16/24 15:24 Patient Disposition: Home Health Service Discharge Diagnosis: NSTEMI, acute systolic heart failure, Apical thrombus Referrals: [facility] [Outside] - 1 Week Cichon,Leah, MD [Physician] - 1 Week Discharge Medications: New Eliquis 5 mg Tablet 5 mg PO BID Qty: 180 0RF spironolactone 25 mg Tablet 25 mg PO DAILY Qty: 90 0RF Protocol: Hold for SBP< HOLD for SBP < : 90 losartan 25 mg Tablet 25 mg PO DAILY Qty: 90 0RF Protocol: Hold for SBP< HOLD for SBP < : 90 ethacrynic acid 25 mg tablet 50 mg PO DAILY Qty: 180 0RF Discharge Orders: Discharge Order (Routine); Ordered 05/16/24 Ordered By: Kojo Finch Diet: Advance to usual diet Activity on Discharge: As tolerated Stand Alone Forms: Patient Portal Discharge page Print Language: Lao Care Plan Goals: recovery from NSTEMI and heart failure Health Concerns: Heart failure acute NSTEMI (Heart attack) Cardiomyopathy Plan of Treatment: Take all your medication as recommended and follow up with your doctor in a week cardiology office will arrange for a follow up for you take benadryl if your rash is itchy Visiting nurse will come check on you at home Assessment: see above
--- NOTE | 2024-05-16 15:41 | W.MHC.F2F ---
Service Date Service Date: 05/16/24 Encounter Date of encounter: 05/16/24 Reasons for Services Signs and symptoms assessed: acute heart failure, acute heart taaac Reason for chcf: medication management, medication treatment and teach disease management Reason for physical therapy: therapeutic exercises and energy conservation Homebound: Leaving the home is medically contraindicated at this time without the asist of a device and/or another person due th the listed conditions above and below. Reason homebound: fall risk related to blood pressure changes and weakness related to hospital stay Homebound supporting statement: homebound due to acute heart attack with acute heart failure causing shortness with minimal effort and therefore needs the assitance of another person Certification: Based on the above findings, I certify that this patient is confined to the home and needs intermittent chcf care, physical therapy and/or speech therapy, or continues to need occupational therapy. The patient is under my care, and I have initiated the establishment of the plan of care. The patient will be followed by a physician who will periodically review the plan of care. Time Spent With Patient Time: Total time managing care of this patient today ____ minutes.
== END 2024-05-16 17:04 | disposition home health service (06) | DRG 280 ==
LOC: HO.ED 18:38 → HO.EDOVER 05-11 01:57 → HO.IMC 05-11 14:56
PROVIDERS: Physician Assistant; Admitting Provider Hospitalist; Emergency Provider Internal Medicine; Visit Provider Internal Medicine
DX: I13.0 Hypertensive heart and chronic kidney disease with heart failure and stage 1 through stage 4 chronic kidney disease, or unspecified chronic kidney disease (principal); I50.21 Acute systolic (congestive) heart failure; I21.4 Non-ST elevation (NSTEMI) myocardial infarction; J18.9 Pneumonia, unspecified organism; J44.0 Chronic obstructive pulmonary disease with (acute) lower respiratory infection; E87.21 Acute metabolic acidosis; I47.20 Ventricular tachycardia, unspecified; N28.0 Ischemia and infarction of kidney; I51.3 Intracardiac thrombosis, not elsewhere classified; I27.20 Pulmonary hypertension, unspecified; L27.0 Generalized skin eruption due to drugs and medicaments taken internally; T50.1X5A Adverse effect of loop [high-ceiling] diuretics, initial encounter; I25.10 Atherosclerotic heart disease of native coronary artery without angina pectoris; I25.5 Ischemic cardiomyopathy; F17.210 Nicotine dependence, cigarettes, uncomplicated; Z71.6 Tobacco abuse counseling; I71.43 Infrarenal abdominal aortic aneurysm, without rupture; E87.5 Hyperkalemia; N18.30 Chronic kidney disease, stage 3 unspecified; D69.6 Thrombocytopenia, unspecified; Z20.822 Contact with and (suspected) exposure to COVID-19; Z91.148 Patient's other noncompliance with medication regimen for other reason; Z79.899 Other long term (current) drug therapy
CPT/HCPCS: 0241U; 36415; 71045; 71275; 74174; 80048; 80053; 80061; 83605; 83735; 83880; 84443; 84484; 85025; 85027; 85610; 85730; 87040; 93005; 93306; 93970; 97161; 99285; J0456; J0696; J1200; J1644; J1940; J3475; Q9957

== ENCOUNTER → 2024-05-10 15:39 | Outpatient (BNV) | payer MEDICARE, MEDICAID, SELFPAY | PROVIDERS: Admitting Provider Hospitalist; Emergency Provider Internal Medicine; Visit Provider Internal Medicine | DX: I45.10 Unspecified right bundle-branch block (principal); I51.7 Cardiomegaly | CPT/HCPCS: 93010 ==

== ENCOUNTER → 2024-05-10 15:39 | Outpatient (BNV) | payer MEDICARE, MEDICAID, SELFPAY | PROVIDERS: Emergency Provider Emergency Medicine; Visit Provider Radiology Diagnostic Radiology | DX: R22.43 Localized swelling, mass and lump, lower limb, bilateral (principal); J18.9 Pneumonia, unspecified organism; R06.02 Shortness of breath | CPT/HCPCS: 71045; 93970 ==

== ENCOUNTER → 2024-05-11 01:53 | Outpatient (BNV) | payer MEDICARE, MEDICAID, SELFPAY | PROVIDERS: Admitting Provider Hospitalist; Emergency Provider Internal Medicine; Visit Provider Internal Medicine | DX: I21.4 Non-ST elevation (NSTEMI) myocardial infarction (principal); I50.9 Heart failure, unspecified | CPT/HCPCS: 99499 ==

== ENCOUNTER → 2024-05-11 01:53 | Outpatient (BNV) | payer MEDICARE, MEDICAID, SELFPAY | PROVIDERS: Admitting Provider Hospitalist; Emergency Provider Internal Medicine; Visit Provider Internal Medicine | DX: I21.4 Non-ST elevation (NSTEMI) myocardial infarction (principal); I50.41 Acute combined systolic (congestive) and diastolic (congestive) heart failure; I51.3 Intracardiac thrombosis, not elsewhere classified | CPT/HCPCS: 93010; 99233 ==

== ENCOUNTER → 2024-05-11 01:53 | Outpatient (BNV) | payer MEDICARE, MEDICAID, SELFPAY | PROVIDERS: Admitting Provider Hospitalist; Emergency Provider Internal Medicine; Visit Provider Physician Assistant Surgical | DX: I71.33 Infrarenal abdominal aortic aneurysm, ruptured (principal) | CPT/HCPCS: 99222 ==

== ENCOUNTER 2024-05-29 08:03 | Outpatient (AMB) | payer MEDICARE, MEDICAID, SELFPAY ==
--- NOTE | 2024-05-29 08:05 | AM.OFFWIN_ITS ---
Intake Vital Signs 05/29/24 08:06 Height 5 ft 5 in Weight 121 lb BMI 20.1 BP 90/48 L Blood Pressure Location Lt brachial Position Sitting Respiration 17 Pulse 95 Pulse Source Pulse Oximeter Temp 97.6 F Temp Source Oral Pulse Oximetry (%) 93 Oxygen Delivery Method Room Air Intake Visit Reasons: EP rash on both legs Intake Note: Pt is here today c/o bilateral rash lower legs Patient Tobacco Use Status: Former Tobacco user Allergies atorvastatin Allergy (Intermediate, Verified 05/29/24 08:18) rash furosemide Allergy (Intermediate, Verified 05/29/24 08:18) Rash HPI HPI Comments History of Present Illness Details History of Present Illness - The patient is a 78-year-old male pres enting with an allergic reaction and hypotension. - Presenting with a rash that has persis ada for three weeks, exhibiting pruritus and visible excoriation. - Hypotension noted previously with the last measurement recording a systolic pressure of 120 mmHg. - Possible exposure to a hospital-associ ated allergen suspected in connection with the allergic reaction. Physical Exam General: Cooperative, healthy appearing, comfortable, no acute distress and well developed Orientation: Patient oriented x3 Limitations: No limitations Head: Normal to inspection Ears: Hearing grossly normal bilaterally Nose: Normal External nose present Face and sinus: Normal facial exam Eyes: Appearance normal, both eyes and all related structures Neck: Normal visual inspection and Yes full ROM Respiratory: Normal respiratory effort and able to speak in complete sentences. Clear to auscultation bilaterally Cardiovascular: Regular rate and rhythm. Normal S1 and S2 Skin: Rash noted, patient reports itching and evidence of scratching observed Neuro: Patient oriented x3 Extremities: Normal to inspection [facility] Medical History (Updated 05/29/24 @ 08:43 by Kalyn Alegria PA-C) Allergy to atorvastatin RBBB Colonoscopy refused Hyperlipidemia HTN (hypertension) AAA (abdominal aortic aneurysm) Tobacco abuse, in remission COPD (chronic obstructive pulmonary disease) Ruptured abdominal aortic aneurysm (AAA) Surgical History Hx of appendectomy Family History Father Aneurysm Mother No problems noted. Social History (Updated 05/11/24 @ 12:13 by Richard Brown MD) Household Members: Significant Other Household Members Other:: , Housing: Apartment Do you presently have visiting nurse or other home services: No Patient Tobacco Use Status: Former Tobacco user Tobacco use type: Cigarette Cigarette Packs Per Day: 0.12 Cigarettes Per Day: 2.4 e-Cigarette/Vaping Use: Never Used Second Hand Smoke Exposure: Yes service: No Current occupational status: retired Cognitive needs: No Hearing needs: No Vision needs: No Review of Systems Const All systems reviewed & are unremarkable except as noted in HPI and below Physical Exam Vital Signs: Last Vital Signs Temp 97.6 F 05/29/24 08:06 Pulse 95 05/29/24 08:06 Resp 17 05/29/24 08:06 BP 90/48 L 05/29/24 08:06 Pulse Ox 93 05/29/24 08:06 Oxygen Delivery Method Room Air 05/29/24 08:06 BMI result Body Mass Index 20.1 Assessment & Plan Assessment & Plan (1) Contact dermatitis: Code(s): L25.9 - Unspecified contact dermatitis, unspecified cause Qualifiers: Contact dermatitis type: allergic Contact dermatitis trigger: other trigger Qualified Code(s): L23.89 - Allergic contact dermatitis due to other agents Plan: Triamcinolone cream will be provided to address the allergic reaction, instructed for application twice daily. The corticosteroid should mitigate pruritus and the inflammatory response noted in the rash. If symptoms persist after completing the course of steroid cream, he should follow up with his PCP. Patient was informed and verbally consented to the use of an ambient scribe for clinic note documentation during this visit. (2) Borderline low blood pressure determined by examination: Code(s): R03.1 - Nonspecific low blood-pressure reading Plan: In light of the low blood pressure reading observed, as per instructions his was given, she is withholding his spironolactone today. This is to prevent further blood pressure decline, considering the diuretic nature of the medication. Repeat blood pressure was similar. Recommended patient go home and have some water and some salty foods recheck his blood pressure in a few hours and if it is still low, he should call Dr. Snowden's nurse and follow up. Patient and his agree and understand the plan. Medications: New triamcinolone acetonide 0.1% 1 appl topical BID 80 grams 0RF Coding Level of Care Code Est Pt Level 4 (28601) Diagnoses Allergic contact dermatitis due to other agents L23.89 Contact dermatitis type: allergic Contact dermatitis trigger: other trigger Borderline low blood pressure determined by examination R03.1
[2024-05-29 08:06] VITALS: BP 90/48; PULSE 95; RESP 17; TEMP 36.4; O2SAT 93; BMI 20.1
--- OUTSIDE RECORDS SUMMARY | 2024-05-29 08:11 | XMS_ITS | Encounter Summary ---
Author Organization [facility] Address [address] [place] [address] Care Team Providers Care Deputy Fire Chief Name Role Phone Dallas Shepherd Primary Care Provider [phone]- [phone] Encounter Details Date Type Department Care Team (Late st Contact Info) Description 05/02/2019 Scanned Document [facility] Vascular & Endovascular Surgery [address] [place] [id number] David Frazier MD [address] [place] [address] Social History Tobacco Use Types Packs/Day Years Used Date Smoking Tobacco: Never Assessed Sex and Gender Information Value Date Recorded Sex Assigned at Not on file Gender Identity Not on file Sexual Orientation Not on file documented as of this encounter Plan of Treatment Not on file documented as of this encounter Visit Diagnoses Not on filedocumented in this encounter Care Teams Deputy Fire Chief Relationship Specialty Start Date End Date Dallas Shepherd PA [facility] [address] [place] [address] PCP - General Internal Medicine 05/02/19 documented as of this encounter
--- OUTSIDE RECORDS SUMMARY | 2024-05-29 08:11 | XMS_ITS | Continuity of Care Document ---
Author Name [facility] Organization [facility] Care Team Providers Care Nc Machinist Name Role Phone [facility] Unavailable Unavailable Problems Combined list of problems from Department of Defense and Veterans Affairs facilities. It does not include entries that were removed or entered in error. Problem Status Onset Date Problem Type Date of Resolution Comments Source AAA - Abdominal Aortic Aneurysm (SCT [id number]) Active Condition Apr 17, 2021 Entered By: MANPREET FERNANDEZ Comment: Acute rupture repaired 04/01/21 at [facility]. [place] MINDR [place] [facility] Chronic obstructive airway disease Active Condition [place] [facility] [place]icket[place] [facility] Medications Combined list of outpatient medications from Department of Defense and Veterans Affairs facilities.Medications provided include 1) outpatient medications from the last 15 months, and 2) patient-reported medications. Medication Details Route Status Patient Instructions Prescription Expires Prescription Number Last Dispense Date Ordering Provider Order Date Order Qty Source ASPIRIN 81MG TAB,EC TAKE ONE TABLET BY MOUTH ONCE DAILY ORAL ACTIVE GINA FERNANDEZ 2019 [place] MIND Integ[employer]ChainN TalystU [employer] [facility] Allergies, Adverse Reactions, Alerts Combined list of allergies from Department of Defense and Veterans Affairs facilities. It does not include entries that were removed or entered in error. Substance Category Reaction Severity Reaction type Status Date Reported Comments Source ATORVASTATIN Propensity to adverse reactions to drug (finding) Itching active 2 [place] JEDI MIND KlusterTRN TicketLabsCHUSE TS [facility] Immunizations Combined list of available immunizations from the Department of Defense and Veterans Affairs facilities. Immunization Series Date Given Administered By Site Reaction Lot Number CVX Code Drug Pipefitter Helper Status Comments Source TDAP 2018 115 complet ed Site: Left Deltoid [place] JEDI MIND [employer]ChainN T[employer] [facility] Encounters Combined list of: 1) Encounters from Department of Veterans Affairs facilities going backup to the last 18 months, not all VA inpatient encounters are included; 2) Encounters from the Department of Defense facilities going backup to 280 months. Location Location Details Encounter Type Encounter Number Reason For Visit Attending Provider ADM Date DC Date Status Disposition Source [place] [facility] [facility] Outpatient Encounter [id number] 09/15 [place] [facility] [facility] [place] [facility] Outpatient Encounter [id number] 09/15 [facility] [place] [facility] Social History Combined list of available smoking, tobacco, and other social history from Department of Defense and Veterans Affairs facilities. 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
--- OUTSIDE RECORDS SUMMARY | 2024-05-29 08:11 | XMS_ITS | Clinical Summary ---
Author Organization [facility] Address [address] [place] [address] Care Team Providers Care Claims Supervisor Name Role Phone Dallas Shepherd Primary Care Provider [phone]- [phone] Social History Tobacco Use Types Packs/Day Years [...] age to complete this topic Care Teams Claims Supervisor Relationship Specialty Start Date End Date Dallas Shepherd PA [facility] [address] [place] [address] PCP - General Internal Medicine 05/02/19
== END 2024-05-29 09:03 | disposition home or self-care (01) ==
PROVIDERS: PCP Internal Medicine; Visit Provider Physician Assistant
DX: L23.89 Allergic contact dermatitis due to other agents (principal); R03.1 Nonspecific low blood-pressure reading

== ENCOUNTER → 2024-05-29 08:03 | Outpatient (BNVA) | payer MEDICARE, MEDICAID, SELFPAY | PROVIDERS: PCP Internal Medicine; Visit Provider Physician Assistant | DX: L23.89 Allergic contact dermatitis due to other agents (principal); R03.1 Nonspecific low blood-pressure reading | CPT/HCPCS: 99212 ==

== ENCOUNTER 2024-06-26 07:49 | Outpatient (AMB) | payer MEDICARE, MEDICAID, SELFPAY ==
--- OUTSIDE RECORDS SUMMARY | 2024-06-26 07:53 | XMS_ITS | Continuity of Care Document ---
Author Name [facility] Organization [facility] Care Team Providers Care Senior Business Consultant Name Role Phone [facility] Unavailable Unavailable Problems Combined list of problems from Department of Defense and Veterans Affairs facilities. It does not include entries that were removed or entered in error. Problem Status Onset Date Problem Type Date of Resolution Comments Source AAA - Abdominal Aortic Aneurysm (SCT [id number]) Active Condition Apr 17, 2021 Entered By: MANPREET FERNANDEZ Comment: Acute rupture repaired 04/01/21 at [facility]. [place] Bent PixelsR auctionPALTRN [place] [facility] Chronic obstructive airway disease Active Condition [place] [facility] [employer] PharmaceuticalsCH[employer] [facility] Medications Combined list of outpatient medications [...] ONCE DAILY ORAL ACTIVE GINA FERNANDEZ 2019 [place] [employer] Active CircleN Haiku DeckU [employer]oc[employer] [facility] Allergies, Adverse Reactions, Alerts Combined list of allergies from Department of Defense and Veterans Affairs facilities. It does not include entries that were removed or entered in error. Substance Category Reaction Severity Reaction type Status Date Reported Comments Source ATORVASTATIN Propensity to adverse reactions to drug (finding) Itching active 2 [place] [employer] Pix[employer] auctionPALTRN Acumen PharmaceuticalsCHUSE TS [facility] Immunizations Combined list of available immunizations from the Department of Defense and Veterans Affairs facilities. Immunization Series Date Given Administered By Site Reaction Lot Number CVX Code Drug Railroad Baggage [place] Status Comments Source TDAP 2018 115 complet ed Site: Left Deltoid [place] [employer] Active CircleN Haiku DeckU [employer] [facility] Encounters Combined list of: 1) Encounters from Department of Veterans Affairs facilities going backup to the last 18 months, not all VA inpatient encounters are included; 2) Encounters from the Department of Defense facilities going backup to 280 months. Location Location Details Encounter Type Encounter Number Reason For Visit Attending Provider ADM Date DC Date Status Disposition Source [place] [facility] [place] [facility] Outpatient Encounter [id number] 09/15 [place] [facility] [facility] [place] [facility] Outpatient Encounter [id number] 09/15 [facility] [place] [facility] Social History Combined list of available smoking, tobacco, and other social history from Department of Defense and Veterans Affairs facilities. 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
--- OUTSIDE RECORDS SUMMARY | 2024-06-26 07:53 | XMS_ITS | Clinical Summary ---
Author Organization [facility] Address [address] [place] [address] Care Team Providers Care Horse Trainer Name Role Phone Dallas Shepherd Primary Care Provider +1- [phone] Social History Tobacco Use Types Packs/Day Years Used Date Smoking Tobacco: Never Assessed Sex and Gender Information Value Date Recorded Sex Assigned at Not on file Legal Sex Male 12:25 PM EST Gender Identity Not on file Sexual Orientation [...] - 1-dose 75+ series) 12/15/2022 COVID-19 Vaccine (2023-2 5 season) 2023 Hepatitis B Vaccines Aged Out No long er eligible based on patient's age to complete this topic Care Teams Horse Trainer Relationship Specialty Start Date End Date Dallas Shepherd PA [facility] [address] [place] [address] PCP - General Internal Medicine 05/02/19
--- OUTSIDE RECORDS SUMMARY | 2024-06-26 07:53 | XMS_ITS | Encounter Summary ---
Author Organization Formerly [facility] Address [address] [place] [address] Care Team Providers Care Radiologic Tech Name Role Phone Dallas Shepherd Primary Care Provider [phone] Encounter Details Date Type Department Care Team (Late st Contact Info) Description 05/02/2019 Scanned Document [facility] Vascular & Endovascular Surgery [address] [place] [address] David Frazier MD [address] [place] [address] Social History Tobacco Use Types Packs/Day Years [...] on filedocumented in this encounter Care Teams Radiologic Tech Relationship Specialty Start Date End Date Dallas Shepherd PA [facility] [address] [place] [address] PCP - General Internal Medicine 05/02/19 documented as of this encounter
[2024-06-26 08:10] VITALS: BP 96/58; PULSE 78; RESP 18; O2SAT 97; BMI 22.6
--- NOTE | 2024-06-26 08:10 | MHC.PC.OV ---
Vital Signs 06/26/24 08:10 Height 5 ft 5 in Weight 136 lb BMI 22.6 BP 96/58 L Blood Pressure Location Rt brachial Position Sitting Respiration 18 Pulse 78 Pulse Source Pulse Oximeter Pulse Oximetry (%) 97 Oxygen Delivery Method Room Air Intake Visit Reasons: HDF Intake Note: Pt is here today for Hospital follow up visit. Allergies atorvastatin Allergy (Intermediate, Verified 06/26/24 08:12) rash furosemide Allergy (Intermediate, Verified 06/26/24 08:12) Rash Medication List - Last Reconciled 06/26/24 by Leah Snowden MD apixaban (Eliquis) 5 mg PO BID ethacrynic acid 50 mg (2 x 25 mg) PO DAILY 30 days losartan 25 mg See Protocol PO DAILY spironolactone 25 mg See Protocol PO DAILY triamcinolone acetonide 0.1% 1 appl topical BID Tobacco use date assessed: 06/26/24 Fall risk assessment: No Falls in past year Last assessed Fall Risk: 06/26/24 Dental Screening Dental Screen Date: 06/26/24 Did you have a dental visit in the last 12 months?: No Did you have a dental problem in the last 6 months where you did not have access to dental care?: No Was dental information given to patient?: Patient declined HPI HDF HPI Details Patient presents for a follow-up hospitalization 1 month ago at [facility] for acute CHF, non ST-elevation DC with positive troponin and ischemic cardiomyopathy with echocardiogram consistent with ejection fraction of 20%, regional wall motion abnormalities, severe global hypokinesis, left ventricular apical thrombus, moderate pulmonary hypertension pericardial effusion. Patient was started on losartan ethacrynic acid because of allergy to furosemide spironolactone Eliquis. [facility] Medical History (Updated 06/26/24 @ 13:01 by Leah Snowden MD) AAA (abdominal aortic aneurysm) Left ventricular thrombus CHF (congestive heart failure) Allergy to atorvastatin RBBB Colonoscopy refused Hyperlipidemia Tobacco abuse, in remission COPD (chronic obstructive pulmonary disease) Ruptured abdominal aortic aneurysm (AAA) Surgical History Hx of appendectomy Family History Father Aneurysm Mother No problems noted. Social History Household Members: Significant Other Household Members Other:: , Housing: Apartment Do you presently have visiting nurse or other home services: No Patient Tobacco Use Status: Current everyday Tobacco user Tobacco use type: Cigarette Cigarette Packs Per Day: 0.12 Cigarettes Per Day: 2.4 e-Cigarette/Vaping Use: Never Used Second Hand Smoke Exposure: Yes service: No Current occupational status: retired Cognitive needs: No Hearing needs: No Vision needs: No Questionnaire PHQ-9 Over the last 2 weeks, how often have you been bothered by any of the following problems? 1. Little interest or pleasure in doing things: nearly every day 2. Feeling down, depressed, or hopeless: not at all 3. Trouble falling or staying asleep, or sleeping too much: not at all 4. Feeling tired or having little energy: more than half the days 5. Poor appetite or overeating: not at all 6. Feeling bad about yourself - or that you are a failure or have let yourself or your family down: not at all 7. Trouble concentrating on things, such as reading the newspaper or watching television: not at all 8. Moving or speaking so slowly that other people could have noticed. Or the opposite - being so fidgety or restless that you have been moving around a lot more than usual: not at all 9. Thoughts that you would be better off or of hurting yourself in some way: not at all Total score: 5 Depression Screening Interpretation: Negative Depression Screening Done: Yes 25766 - PHQ-9 Billing: Yes Source: Developed by Drs. Rafael Agee, Marisel Estrada, Kyler Shukla and colleagues, with an educational damari from [employer]. Thrive Questionnaire Date Thrive assessed: 06/26/24 I am a: Patient What is your living situation today?: I have a steady place to live Within the past 12 months, did the food you bought not last and you didn't have the money to get more?: I choose not to answer this question Within the past 12 months, did you worry whether your food would run out before you got money to buy more?: I choose not to answer this question Do you have trouble paying for medicines?: I choose not to answer this question Do you have trouble getting transportation to medical appointments?: I choose not to answer this question Do you have trouble paying your heating and electricity bill?: I choose not to answer this question Do you have trouble taking care of your child, family member or friend?: I choose not to answer this question Do you have trouble with day-to-day activities such as bathing, preparing meals, shopping, managing finances, etc.?: I choose not to answer this question Are you currently unemployed and looking for a job?: I choose not to answer this question Are you interested in more education?: I choose not to answer this question THRIVE Score: 0 MARTINA-7 AMB Questionnaire MARTINA-7 Date MARTINA - 7 assessed: 06/26/24 Feeling nervous, anxious, or on edge: 0 = Not at all Not being able to stop or control worryin = Not at all Worrying too much about different things: 0 = Not at all Trouble relaxin = Not at all Being so restless that it is hard to sit still: 0 = Not at all Becoming easily annoyed or irritable: 0 = Not at all Feeling afraid as if something awful might happen: 0 = Not at all Total MARTINA-7 score (0-4 normal; 5-9 mild; 10-14 moderate; 15-21 severe): 0 Source: Developed by Drs. Rafael Agee, Marisel Estrada, Kyler Shukla and colleagues, with an educational damari from [employer]. MARTINA-7 Assessment Billing MARTINA-7 Assessment Tool: MARTINA-7 Assessment 67957 Review of Systems Const All systems reviewed & are unremarkable except as noted in HPI and below Eyes Reports no additional complaints ENT Reports no additional complaints Card Reports no additional complaints Resp Reports no additional complaints GI Reports no additional complaints Reports no additional complaints Physical exam (Primary Care) Vital Signs: Last Vital Signs Pulse 78 06/26/24 08:10 Resp 18 06/26/24 08:10 BP 96/58 L 06/26/24 08:10 Pulse Ox 97 06/26/24 08:10 Oxygen Delivery Method Room Air 06/26/24 08:10 BMI result Body Mass Index 22.6 Tobacco/Smoking Status: Tobacco use Status Tobacco use date assessed 06/26/24 06/26/24 08:16 Patient Tobacco Use Status Current everyday Tobacco 06/26/24 08:16 Tobacco use type Cigarette 04/29/25 08:16 e-Cigarette/Vaping Use Never Used 06/26/24 08:16 PHQ-9: PHQ-9 Score PHQ-9: Total score 5 06/26/24 08:35 Depression Screening Interpretation: Negative Thrive Assessment: Date of Thrive Assessment Date Thrive assessed 06/26/24 06/26/24 08:16 Const General: no acute distress HENMT Head: Yes normal to inspection Face and sinus: Yes normal facial exam Eyes General: appearance normal, both eyes and all related structures Resp Effort & Inspection: normal respiratory effort Auscultation: diminished lung sounds Cardio Rhythm: regular rhythm Heart sounds: S1 normal heart sound present and S2 normal heart sound present GI Inspection: Yes normal to inspection Palpation (GI): Soft to palpation Percussion: Yes normal to percussion Auscultation: normal bowel sounds Coding Level of Care Code Est Pt Level 4 (04910) Diagnoses CHF (congestive heart failure) I50.9 COPD (chronic obstructive pulmonary disease) J44.9 Left ventricular thrombus I51.3 Additional Codes MARTINA-7 Assessment Billing - MARTINA-7 Assessment Tool: MARTINA-7 Assessment 49659 ([id number]) PHQ-9 - 69838 - PHQ-9 Billing: Yes ([id number]) Assessment & Plan Assessment & Plan (1) CHF (congestive heart failure): Comment: EF 20 %, severe global hypokinesis, regional wall morion abnormalities, moderate MR, Code(s): I50.9 - Heart failure, unspecified Category: Medical Plan: Continue losartan and ethacrynic acid. Patient is not able to tolerate spironolactone due to low blood pressure, check labs today (2) COPD (chronic obstructive pulmonary disease): Comment: Patient declined inhalers Code(s): J44.9 - Chronic obstructive pulmonary disease, unspecified Category: Medical Plan: Tobacco quitting discussed with the patient (3) Left ventricular thrombus: Comment: 05/2024 Echo started on Eliquis Code(s): I51.3 - Intracardiac thrombosis, not elsewhere classified Category: Medical Plan: Continue Eliquis follow-up in 2 months Orders: Orders B Type Natriuretic Peptide Today I50.41 - Acute combined systolic (congestive) and diastolic (congestive) heart failure, I50.9 - Heart failure, unspecified, J44.9 - Chronic obstructive pulmonary disease, unspecified Complete Blood Count Auto Diff Today I50.41 - Acute combined systolic (congestive) and diastolic (congestive) heart failure, I50.9 - Heart failure, unspecified, J44.9 - Chronic obstructive pulmonary disease, unspecified Comprehensive Met. Panel Today I50.41 - Acute combined systolic (congestive) and diastolic (congestive) heart failure, I50.9 - Heart failure, unspecified, J44.9 - Chronic obstructive pulmonary disease, unspecified Medications: New Eliquis (apixaban) 5 mg PO BID 180 tabs 0RF NS Changed From ethacrynic acid 50 mg (2 x 25 mg) PO DAILY 30 days 60 tabs 5RF To ethacrynic acid 50 mg (2 x 25 mg) PO BID 180 tabs 0RF From ethacrynic acid 50 mg (2 x 25 mg) PO BID 180 tabs 0RF To ethacrynic acid 25 mg PO BID 180 tabs 0RF Refilled losartan 25 mg PO DAILY 90 tabs 0RF Discontinued spironolactone Discontinued Reason: Doctor's Order 25 mg See Protocol PO DAILY 90 tabs 0RF apixaban (Eliquis) Discontinued Reason: Doctor's Order 5 mg PO BID 180 tabs 0RF
== END 2024-06-26 08:44 | disposition home or self-care (01) ==
LOC: HO.HMCC 07:50
PROVIDERS: PCP Internal Medicine; Visit Provider Internal Medicine
DX: I50.9 Heart failure, unspecified (principal); J44.9 Chronic obstructive pulmonary disease, unspecified; I51.3 Intracardiac thrombosis, not elsewhere classified

== ENCOUNTER 2024-06-26 07:49 | Outpatient (REF) | payer MEDICARE, MEDICAID, SELFPAY ==
--- OUTSIDE RECORDS SUMMARY | 2024-06-26 09:13 | XMS_ITS | Clinical Summary ---
Author Organization [facility] Address [address] [place] [address] Care Team Providers Care Personnel Research Psychologist Name Role Phone Dallas Shepherd Primary Care Provider [phone]- [phone] Social History Tobacco Use Types Packs/Day Years [...] age to complete this topic Care Teams Personnel Research Psychologist Relationship Specialty Start Date End Date Dallas Shepherd PA [facility] [address] [place] [address] PCP - General Internal Medicine 05/02/19
--- OUTSIDE RECORDS SUMMARY | 2024-06-26 09:13 | XMS_ITS | Encounter Summary ---
Author Organization [facility] Address [address] [place] [address] Care Team Providers Care Monotype Mechanic Name Role Phone Dallas Shepherd Primary Care Provider [phone]- [phone] Encounter Details Date Type Department Care Team (Late st Contact Info) Description 05/02/2019 Scanned Document [facility] Vascular & Endovascular Surgery [address] [place] [address] David Frazier MD [address] [place] [address] Social History Tobacco Use Types Packs/Day Years [...] on filedocumented in this encounter Care Teams Monotype Mechanic Relationship Specialty Start Date End Date Dallas Shepherd PA [facility] [address] [place] [address] PCP - General Internal Medicine 05/02/19 documented as of this encounter
--- OUTSIDE RECORDS SUMMARY | 2024-06-26 09:13 | XMS_ITS | Continuity of Care Document ---
Author Name [facility] Organization [facility] Care Team Providers Care Application Security Consultant Name Role Phone [facility] Unavailable Unavailable Problems Combined list of problems from Department of Defense and Veterans Affairs facilities. It does not include entries that were removed or entered in error. Problem Status Onset Date Problem Type Date of Resolution Comments Source AAA - Abdominal Aortic Aneurysm (SCT [id number]) Active Condition Apr 17, 2021 Entered By: MANPREET FERNANDEZ Comment: Acute rupture repaired 04/01/21 at [facility]. [facility] [place] [facility] Chronic obstructive airway disease Active Condition [facility] Medications Combined list of outpatient medications from Department of Defense and Veterans Affairs facilities.Medications provided include 1) outpatient medications from the last 15 months, and 2) patient-reported medications. Medication Details Route Status Patient Instructions Prescription Expires Prescription Number Last Dispense Date Ordering Provider Order Date Order Qty Source ASPIRIN 81MG TAB,EC TAKE ONE TABLET BY MOUTH ONCE DAILY ORAL ACTIVE GINA FERNANDEZ 2019 [place] [facility] [employer] [facility] Allergies, Adverse Reactions, Alerts Combined list of allergies from Department of Defense and Veterans Affairs facilities. It does not include entries that were removed or entered in error. Substance Category Reaction Severity Reaction type Status Date Reported Comments Source ATORVASTATIN Propensity to adverse reactions to drug (finding) Itching active 2 [place] [facility] [employer] [facility] Immunizations Combined list of available immunizations from the Department of Defense and Veterans Affairs facilities. Immunization Series Date Given Administered By Site Reaction Lot Number CVX Code Drug Desk Top Publisher Status Comments Source TDAP 2018 115 complet ed Site: Left Deltoid [facility] [employer] [facility] Encounters Combined list of: 1) Encounters from Department of Veterans Affairs facilities going backup to the last 18 months, not all VA inpatient encounters are included; 2) Encounters from the Department of Defense facilities going backup to 280 months. Location Location Details Encounter Type Encounter Number Reason For Visit Attending Provider ADM Date DC Date Status Disposition Source [facility] [place] [facility] Outpatient Encounter [id number] 09/15 [facility] [place] [facility] [place] [facility] Outpatient Encounter [id number] 09/15 [facility] [place] [facility] Social History Combined list of available smoking, tobacco, and other social history from Department of Defense and Veterans Affairs facilities. Social History Type Response Date Comment Sourc e Tobacco smoking status NHIS CO-TOBACCO USER EVERY DAY 09/16/2023 [facility] [place] [facility] History of tobacco use CO-TOBACCO USE WI 30 MIN OF WAKEUP 09/16/2023 [facility] [place] [facility] History of tobacco use CO-TOBACCO FORMER USER 06/08/2021 [facility] [place] [facility] History of tobacco use CO-TOBACCO USE CADMIUM BURNER NO 12/18/2018 [facility] [place] [facility]
[2024-06-26 10:13] LABS: Basophils Absolute Auto 0.1 X10*3/uL (0.0-0.2); Basophils Percent Auto 1.4 % (0-2); Eosinophils Absolute Auto 0.3 X10*3/uL (0.0-0.4); Eosinophils Percent Auto 3.5 % (0-4); Hematocrit 47.3 % (42.0-52.0); Hemoglobin 15.7 g/dl (14.0-18.0); Imm Gran Abs Auto 0.09 X10*3/uL (0.00-0.03); Imm Gran Pct Auto 1.1 % (0.0-0.4); Lymphocytes Percent Auto 23.4 % (20-40); Mean Corpuscular HGB Conc 33.2 g/dl (31.0-36.0); Mean Corpuscular Hemoglobin 28.6 pg (27.0-33.0); Mean Corpuscular Volume 86.3 fL (80.0-98.0); Mean Platelet Volume 10.8 fL (9.4-12.4); Monocytes Absolute Auto 1.1 X10*3/uL (0.1-1.2); Monocytes Percent Auto 13.6 % (2-11); Neutrophils Absolute Auto 4.8 x10*3/uL (2.0-8.3); Red Blood Count 5.48 X10*6/uL (4.60-5.80); Red Cell Distribution Width 17.2 % (11.0-16.0)
[2024-06-26 10:23] LABS: B Type Natriuretic Peptide 759 pg/mL (<100)
[2024-06-26 10:24] LABS: Platelet Count 124 X10*3/uL (160-400); White Blood Count 8.4 X10*3/uL (4.8-10.8)
[2024-06-26 10:35] LABS: Alanine Aminotransferase 17 U/L (0-40); Alkaline Phosphatase 100 U/L (39-117); Anion Gap 11 (12-20); Aspartate Amino Transferase 22 U/L (5-37); Bilirubin Total 0.4 mg/dL (0.0-1.0); Blood Urea Nitrogen 11 mg/dL (9-16); Calcium 9.1 mg/dL (8.4-10.2); Carbon Dioxide 27 mmol/L (22-29); Chloride 105 mmol/L (96-108); Estimated Glomerular Filt Rate > 60; Glucose Random 116 mg/dL (60-115); Potassium 3.9 mmol/L (3.3-5.1); Sodium 139 mmol/L (135-145); Total Protein 6.9 g/dL (6.5-8.0)
== END 2024-06-26 07:50 | disposition home or self-care (01) ==
LOC: HO.HMGCLDS 07:49
PROVIDERS: PCP Internal Medicine; Visit Provider Internal Medicine
DX: I50.41 Acute combined systolic (congestive) and diastolic (congestive) heart failure (principal); J44.9 Chronic obstructive pulmonary disease, unspecified; I51.3 Intracardiac thrombosis, not elsewhere classified; Z79.01 Long term (current) use of anticoagulants
CPT/HCPCS: 36415; 80053; 83880; 85025; 96127; 99212

== ENCOUNTER 2024-08-02 08:53 | Outpatient (AMB) | payer MEDICARE, MEDICAID, SELFPAY ==
--- NOTE | 2024-08-02 09:01 | MHC.OFFVIS ---
Vital Signs 08/02/24 09:03 Height 5 ft 5 in Weight 138 lb 14.259 oz BMI 23.1 BP 120/68 Blood Pressure Location Lt brachial Position Sitting Pulse 78 Pulse Source Pulse Oximeter Intake Visit Reasons: Follow-up s/p inpatient Allergies atorvastatin Allergy (Intermediate, Verified 06/26/24 08:12) rash furosemide Allergy (Intermediate, Verified 06/26/24 08:12) Rash Medication List - Last Reconciled 08/02/24 by AMA Badillo Eliquis (apixaban) 5 mg PO BID NS ethacrynic acid 25 mg PO BID losartan 25 mg PO DAILY triamcinolone acetonide 0.1% 1 appl topical BID HPI HPI Follow-up s/p inpatient: Details: Curt is a 78-year-old male with past medical history of hypertension, hyperlipidemia, COPD, abdominal aortic aneurysm status post repair, smoking who was recently admitted to [facility] with increased shortness of breath and found to have acute NSTEMI and new Congestive heart failure. His echocardiogram did show EF 20%, inferior wall motion abnormality and apical thrombus. He was initially given IV heparin and aspirin that was stopped due to low platelets. He was transitioned to Eliquis at discharge. He has a statin allergy. He had declined advanced testing and intervention. His condition was managed medically. He developed an allergy/rash to Lasix and was discharged with ethacrynic acid 25 mg b.i.d.. Today he reports that he has been feeling generally well since his hospital discharge. He tells me his breathing is back to baseline. He has some shortness of breath with activity which is not new. He denies PND, orthopnea, he does have trace edema. He sleeps with 2 pillows which is his norm. She continues to smoke cigarettes and admits to marijuana use. No chest discomfort at rest or with activity. No heart palpitations, lightheadedness, presyncope, syncope. He follows with Dr. Samaniego for his abdominal aortic aneurysm and has not been seen recently. He has been taking Eliquis. He tells me he ran out of the ethacrynic acid a few weeks ago. They are not aware of what other meds he takes. is present. [facility] Medical History AAA (abdominal aortic aneurysm) Left ventricular thrombus CHF (congestive heart failure) Allergy to atorvastatin RBBB Colonoscopy refused Hyperlipidemia Tobacco abuse, in remission COPD (chronic obstructive pulmonary disease) Ruptured abdominal aortic aneurysm (AAA) Surgical History Hx of appendectomy Family History Father Aneurysm Mother No problems noted. Social History Household Members: Significant Other Household Members Other:: , Housing: Apartment Do you presently have visiting nurse or other home services: No Patient Tobacco Use Status: Current everyday Tobacco user Tobacco use type: Cigarette Cigarette Packs Per Day: 0.12 Cigarettes Per Day: 2.4 e-Cigarette/Vaping Use: Never Used Second Hand Smoke Exposure: Yes service: No Current occupational status: retired Cognitive needs: No Hearing needs: No Vision needs: No Review of Systems Const All systems reviewed & are unremarkable except as noted in HPI and below Denies weakness ENT Denies dizziness Card Denies chest pain, Denies chest pain with activity, Denies syncope, Denies rapid heart rate, Denies pedal edema, Denies edema, Denies leg edema, Denies lightheadedness, Denies palpitations, Denies dyspnea, Denies dyspnea on exertion and Denies orthopnea Resp Denies cough, Denies dyspnea and Denies dyspnea on exertion GI Denies hematochezia and Denies change in stool character Musc Denies abnormal gait, Reports myalgias, Reports joint swelling, Denies muscle cramps, Denies muscle weakness, Denies numbness, Denies radiating pain into limb and Denies tingling Neuro Denies abnormal gait, Denies dizziness, Denies syncope, Denies numbness, Denies tingling and Denies weakness Endo Denies palpitations Physical Exam Vital Signs: Last Vital Signs Pulse 78 08/02/24 09:03 BP 120/68 08/02/24 09:03 BMI result Body Mass Index 23.1 Const General: cooperative, healthy appearing, comfortable and no acute distress Orientation/consciousness: patient oriented x3 Neck Neck: Yes normal visual inspection Resp Effort & Inspection: normal respiratory effort Auscultation: clear to auscultation bilaterally, no rales, no rhonchi and no wheezes Cardio Rate: regular rate Rhythm: regular rhythm Heart sounds: S1 normal heart sound present, S2 normal heart sound present, no gallops, no murmurs and no rubs Neuro General: patient oriented x3 Extrem General: Yes normal to inspection, No no pedal edema and No calf tenderness Psych Appearance: grossly normal Mental Status: mental status grossly normal Speech and movement: Normal speech and movement present Results Reviewed Results Reviewed: Echo 05/11/2024 Conclusions: - The left ventricular systolic function is severely decreased. The calculated ejection fraction is 22% by biplane method. - The inferior wall, inferolateral wall, and apex segment are akinetic. - LV apical thrombus noted 2x0.8cm. - There is mild to moderate mitral valve regurgitation. - Mild to moderate pulmonary hypertension is present. - There is a moderate loculated pericardial effusion overlying the right atrium Assessment & Plan Assessment & Plan (1) NSTEMI (non-ST elevated myocardial infarction): Code(s): I21.4 - Non-ST elevation (NSTEMI) myocardial infarction Category: Medical Plan: Recent CHF admit and ruled in for NSTEMI. Echocardiogram showed EF 22%, inferior wall motion abnormality. No prior known CAD. He does have history of abdominal aortic aneurysm repair. He opted for medical management only. He is not on aspirin as he is on Eliquis. He was not started on rate slowing agents. He has statin allergy. Continue risk factor modification. Recommended smoking sensation. Will order cardiac rehab. Cardiology follow-up 3 months, sooner if needed. (2) CHF (congestive heart failure): Comment: EF 20 %, severe global hypokinesis, regional wall morion abnormalities, moderate MR, Code(s): I50.9 - Heart failure, unspecified Category: Medical Plan: New finding of heart failure with reduced EF. He was initially started on Lasix and developed a rash. He was discharged with ethacrynic acid 25 mg b.i.d.. On exam today he does have some trace ankle edema. He does not appear grossly fluid overloaded. He ran out out of ethacrynic acid a few weeks ago. Will have him restart ethacrynic acid it at 25 mg once daily. Continue losartan for neurohormonal modulation. Blood pressure was initially too low to start beta-barry. At this time will start metoprolol XL 25 mg daily. Signs and symptoms of heart failure reviewed with him. Plan repeat echocardiogram prior to next visit (3) AAA (abdominal aortic aneurysm): Comment: S/P R aorto-uni'-iliac stent with extension to R extrernal iliac, R to L femoral bypass . for rupture AAA, 04/[address] [facility] [address]. Wadsworth, CTA 05/2024 SMALL PENETRATING ATHEROSCLEROTIC ULCERS IN THE AORTIC ARCH AND DESCENDING THORACIC AORTA, INFRARENAL ANEURYSM SAC MEASURING 5.2 X 5.5 CM, LEFT ILIAC ARTERY OCCLUSION WITH PATENT FEM TO FEM BYPASS DR. SAMANIEGO IS AWARE, medical management recommended Code(s): I71.4 - Abdominal aortic aneurysm, without rupture Category: Medical Qualifiers: Abdominal aorta location: infrarenal aorta Presence of rupture: ruptured Qualified Code(s): I71.33 - Infrarenal abdominal aortic aneurysm, ruptured Plan: He does have a infrarenal aortic aneurysm and notes indicate that Dr. Samaniego is aware. Recommend that he follow-up with Dr. Samaniego regarding this. (4) Left ventricular thrombus: Comment: 05/2024 Echo started on Eliquis Code(s): I51.3 - Intracardiac thrombosis, not elsewhere classified Category: Medical Plan: Incidental finding of LV thrombus on echocardiogram. He is now on Eliquis for anticoagulation. (5) Cardiomyopathy: Code(s): I42.9 - Cardiomyopathy, unspecified Category: Medical Plan: Likely ischemic. Patient declines invasive testing. (6) Hospital discharge follow-up: Code(s): Z09 - Encounter for follow-up examination after completed treatment for conditions other than malignant neoplasm Category: Medical Plan: Discharge summary reviewed Plan Discussed the management of cardiac and vascular issues including heart failure with reduced ejection fraction and myocardial infarction follow-up. Reviewed the findings of a blood clot in his heart. Detailed the continuation of blood-thinning therapy and the necessity for reinitiation of the diuretic drug due to recent medication gap. The patient was informed of the requirement for precaution with smoking cessation. Medications were reinforced for awareness about re-obtaining prescriptions and scheduling future follow-up with vascular specialist, Dr. Samaniego. Explained the potential risks associated with therapies such as Eliquis and emphasized continued monitoring through routine labs. Orders: Orders B Type Natriuretic Peptide 08/02/24 I42.9 - Cardiomyopathy, unspecified Basic Metabolic Panel 08/02/24 I42.9 - Cardiomyopathy, unspecified Cardiac Rehab Today I21.4 - Non-ST elevation (NSTEMI) myocardial infarction, I42.9 - Cardiomyopathy, unspecified Medications: New metoprolol succinate ER New 25 mg PO DAILY 30 tabs 5RF Changed From ethacrynic acid 25 mg PO BID 180 tabs 0RF To ethacrynic acid 25 mg PO DAILY 90 tabs 1RF Refilled losartan 25 mg PO DAILY 90 tabs 1RF Eliquis (apixaban) 5 mg PO BID 180 tabs 1RF NS Patient Instructions: - Continue taking Eliquis as prescribed. - Resume diuretic therapy, one tablet per day. - Maintain losartan therapy as instructed. - Follow up with Dr. Samaniego about the abdominal aortic aneurysm. - Reduce or avoid smoking entirely. - Schedule routine blood work within one to two weeks. - Report any new or worsening symptoms promptly. Patient was informed and verbally consented to the use of an ambient scribe for clinic note documentation during this visit. Visit time spent on chart review, interview, assessment, orders, documentation. Coding Level of Care Code Est Pt Level 4 (88831) Complex EM visit Add On G2211 Diagnoses NSTEMI (non-ST elevated myocardial infarction) I21.4 CHF (congestive heart failure) I50.9 Ruptured infrarenal abdominal aortic aneurysm (AAA) I71.33 Abdominal aorta location: infrarenal aorta Presence of rupture: ruptured Left ventricular thrombus I51.3 Cardiomyopathy I42.9 Hospital discharge follow-up Z09 Time Spent (min) 36
[2024-08-02 09:03] VITALS: BP 120/68; PULSE 78; BMI 23.1
--- OUTSIDE RECORDS SUMMARY | 2024-08-02 09:30 | XMS_ITS | Clinical Summary ---
Author Organization [facility] Address [address] [place] [address] Care Team Providers Care Grocery Stock Clerk Name Role Phone Dallas Shepherd Primary Care Provider [phone] Social History Tobacco Use Types Packs/Day Years [...] age to complete this topic Care Teams Grocery Stock Clerk Relationship Specialty Start Date End Date Dallas Shepherd PA [facility] [address] [place] [address] PCP - General Internal Medicine 05/02/19
== END 2024-08-02 09:30 | disposition home or self-care (01) ==
LOC: HO.HCS 08:54
PROVIDERS: PCP Internal Medicine; Visit Provider Internal Medicine Cardiovascular Disease
DX: I21.4 Non-ST elevation (NSTEMI) myocardial infarction (principal); I50.9 Heart failure, unspecified; I71.33 Infrarenal abdominal aortic aneurysm, ruptured; I51.3 Intracardiac thrombosis, not elsewhere classified; I42.9 Cardiomyopathy, unspecified; Z09 Encounter for follow-up examination after completed treatment for conditions other than malignant neoplasm
CPT/HCPCS: 99214; G2211

== ENCOUNTER → 2024-08-02 08:53 | Outpatient (BNVA) | payer MEDICARE, MEDICAID, SELFPAY | PROVIDERS: PCP Internal Medicine; Visit Provider Internal Medicine Cardiovascular Disease | DX: I11.0 Hypertensive heart disease with heart failure (principal); I50.9 Heart failure, unspecified; I21.4 Non-ST elevation (NSTEMI) myocardial infarction; I71.33 Infrarenal abdominal aortic aneurysm, ruptured; I51.3 Intracardiac thrombosis, not elsewhere classified; I42.9 Cardiomyopathy, unspecified; E78.5 Hyperlipidemia, unspecified; F17.210 Nicotine dependence, cigarettes, uncomplicated; Z09 Encounter for follow-up examination after completed treatment for conditions other than malignant neoplasm; Z79.01 Long term (current) use of anticoagulants | CPT/HCPCS: 99212 ==

== ENCOUNTER 2024-08-22 13:43 | Outpatient (AMB) | payer MEDICARE, MEDICAID, SELFPAY ==
[2024-08-22 13:45] VITALS: BP 124/76; PULSE 104; RESP 18; TEMP 36.4; O2SAT 97; BMI 24.0
--- NOTE | 2024-08-22 13:45 | A.OFFPC_ITS ---
Vital Signs 08/22/24 13:45 Height 5 ft 5 in Weight 144 lb BMI 24.0 BP 124/76 Blood Pressure Location Lt brachial Position Sitting Respiration 18 Pulse 104 H Pulse Source Pulse Oximeter Temp 97.5 F Temp Source Oral Pulse Oximetry (%) 97 Oxygen Delivery Method Room Air Intake Visit Reasons: 2 month follow up Intake Note: Pt is here today for a follow up visit. Allergies atorvastatin Allergy (Intermediate, Verified 08/22/24 13:48) rash furosemide Allergy (Intermediate, Verified 08/22/24 13:48) Rash Medication List - Last Reconciled 08/22/24 by Leah Snowden MD Eliquis (apixaban) 5 mg PO BID NS ethacrynic acid 25 mg PO DAILY losartan 25 mg PO DAILY metoprolol succinate ER 25 mg PO DAILY triamcinolone acetonide 0.1% 1 appl topical BID Tobacco use date assessed: 08/22/24 Fall risk assessment: No Falls in past year Last assessed Fall Risk: 08/22/24 Dental Screening Dental Screen Date: 06/26/24 HPI 2 month follow up HPI Details Patient presents for the follow-up of heart failure with reduced ejection fraction left ventricle thrombus on Eliquis., severe peripheral vascular disease, AAA. Patient has been compliant with his medications and denies chest pain, cough dyspnea on exertion or palpitations. He will be star ting cardiac rehab next week. He is established with [facility] vascular surgery for AAA and peripheral vascular disease. Patient quit smoking 2 months ago [facility] Medical History (Updated 08/22/24 @ 14:40 by Leah Snowden MD) AAA (abdominal aortic aneurysm) Left ventricular thrombus CHF (congestive heart failure) Allergy to atorvastatin RBBB Colonoscopy refused Hyperlipidemia Tobacco abuse, in remission COPD (chronic obstructive pulmonary disease) Ruptured abdominal aortic aneurysm (AAA) Surgical History Hx of appendectomy Family History Father Aneurysm Mother No problems noted. Social History Household Members: Significant Other Household Members Other:: , Housing: Apartment Do you presently have visiting nurse or other home services: No Patient Tobacco Use Status: Former Tobacco user (month ago) Tobacco use type: Cigarette Cigarette Packs Per Day: 0.12 Cigarettes Per Day: 2.4 e-Cigarette/Vaping Use: Never Used Second Hand Smoke Exposure: Yes service: No Current occupational status: retired Cognitive needs: No Hearing needs: No Vision needs: No Questionnaire Thrive Questionnaire Date Thrive assessed: 06/26/24 MARTINA-7 AMB Questionnaire MARTINA-7 Date MARTINA - 7 assessed: 06/26/24 Source: Developed by Drs. Rafael Agee, Marisel Estrada, Kyler Shukla and colleagues, with an educational damari from [employer]. Review of Systems Const All systems reviewed & are unremarkable except as noted in HPI and below Eyes Reports no additional complaints ENT Reports no additional complaints Card Reports no additional complaints Resp Reports no additional complaints GI Reports no additional complaints Reports no additional complaints Physical exam (Primary Care) Vital Signs: Last Vital Signs Temp 97.5 F 08/22/24 13:45 Pulse 104 H 08/22/24 13:45 Resp 18 08/22/24 13:45 BP 124/76 08/22/24 13:45 Pulse Ox 97 08/22/24 13:45 Oxygen Delivery Method Room Air 08/22/24 13:45 BMI result Body Mass Index 24.0 Tobacco/Smoking Status: Tobacco use Status Tobacco use date assessed 08/22/24 08/22/24 13:52 Patient Tobacco Use Status Former Tobacco user (month 08/22/24 13:52 ago) Tobacco use type Cigarette 08/22/24 13:52 e-Cigarette/Vaping Use Never Used 08/22/24 13:52 Thrive Assessment: Date of Thrive Assessment Date Thrive assessed 06/26/24 08/22/24 13:52 Const General: no acute distress HENMT Head: Yes normal to inspection Face and sinus: Yes normal facial exam Neck Neck: Yes supple Resp Effort & Inspection: normal respiratory effort Auscultation: diminished lung sounds Cardio Rhythm: regular rhythm Heart sounds: S1 normal heart sound present and S2 normal heart sound present GI Inspection: Yes normal to inspection Palpation (GI): Soft to palpation Percussion: Yes normal to percussion Auscultation: normal bowel sounds Extrem General: Yes no clubbing, cyanosis or edema Coding Level of Care Code Est Pt Level 4 (44823) Complex EM visit Add On G2211 Diagnoses Ruptured infrarenal abdominal aortic aneurysm (AAA) I71.33 Abdominal aorta location: infrarenal aorta Presence of rupture: ruptured CHF (congestive heart failure) I50.9 Left ventricular thrombus I51.3 Assessment & Plan Assessment & Plan (1) AAA (abdominal aortic aneurysm): Comment: S/P R aorto-uni'-iliac stent with extension to R extrernal iliac, R to L femoral bypass . for rupture AAA, 04/[address] [facility] [address] Wadsworth, CTA 05/2024 SMALL PENETRATING ATHEROSCLEROTIC ULCERS IN THE AORTIC ARCH AND DESCENDING THORACIC AORTA, INFRARENAL ANEURYSM SAC MEASURING 5.2 X 5.5 CM, LEFT ILIAC ARTERY OCCLUSION WITH PATENT FEM TO FEM BYPASS DR. SAMANIEGO IS AWARE, medical management recommended Code(s): I71.4 - Abdominal aortic aneurysm, without rupture Category: Medical Qualifiers: Abdominal aorta location: infrarenal aorta Presence of rupture: ruptured Qualified Code(s): I71.33 - Infrarenal abdominal aortic aneurysm, ruptured Plan: Follow-up with [facility] vascular surgery, patient developed rash on statin. He may be a candidate for PCSK9 inhibitor and will discuss the medication with director of outreach during his next appointment. Check basic labs today (2) CHF (congestive heart failure): Comment: EF 20 %, severe global hypokinesis, regional wall morion abnormalities, moderate MR, Code(s): I50.9 - Heart failure, unspecified Category: Medical Plan: Continue current medications follow-up with [facility] (3) Left ventricular thrombus: Comment: 05/2024 Echo started on Eliquis Code(s): I51.3 - Intracardiac thrombosis, not elsewhere classified Category: Medical Plan: Continue Eliquis Orders: Orders Comprehensive Met. Panel Today I50.9 - Heart failure, unspecified, I71.33 - Infrarenal abdominal aortic aneurysm, ruptured Complete Blood Count Auto Diff Today I50.9 - Heart failure, unspecified, I71.33 - Infrarenal abdominal aortic aneurysm, ruptured B Type Natriuretic Peptide Today I50.9 - Heart failure, unspecified, I71.33 - Infrarenal abdominal aortic aneurysm, ruptured TSH reflex Free T4 Today I50.9 - Heart failure, unspecified, I71.33 - Infrarenal abdominal aortic aneurysm, ruptured
--- OUTSIDE RECORDS SUMMARY | 2024-08-22 16:16 | XMS_ITS | Clinical Summary ---
Author Organization [facility] Address [address] [place] [address] Care Team Providers Care Personal Lines Appraiser Name Role Phone Dallas Shepherd Primary Care Provider [phone]- [phone] Social History Tobacco Use Types Packs/Day Years [...] age to complete this topic Care Teams Personal Lines Appraiser Relationship Specialty Start Date End Date Dallas Shepherd PA [facility] [address] [place] [address] PCP - General Internal Medicine 05/02/19
== END 2024-08-22 14:16 | disposition home or self-care (01) ==
LOC: HO.HMCC 13:44
PROVIDERS: PCP Internal Medicine; Visit Provider Internal Medicine
DX: I71.33 Infrarenal abdominal aortic aneurysm, ruptured (principal); I50.9 Heart failure, unspecified; I51.3 Intracardiac thrombosis, not elsewhere classified

== ENCOUNTER → 2024-08-22 13:43 | Outpatient (BNVA) | payer MEDICARE, MEDICAID, SELFPAY | PROVIDERS: PCP Internal Medicine; Visit Provider Internal Medicine | DX: I71.33 Infrarenal abdominal aortic aneurysm, ruptured (principal); I50.9 Heart failure, unspecified; I51.3 Intracardiac thrombosis, not elsewhere classified | CPT/HCPCS: 99212 ==

== ENCOUNTER 2025-02-05 16:33 | Emergency (ER) | payer MEDICARE, MEDICAID, SELFPAY ==
[2025-02-05] VITALS (7 sets, daily range): BP systolic 131–172; BP diastolic 94–109; PULSE 96–112; RESP 18–26; TEMP 36.4–36.8; O2SAT 94–99; BMI 21.9
--- NOTE | ~2025-02-05 | XR_ITS ---
CLINICAL HISTORY: pneumonia 2 view chest x-ray Comparison: CT/SR - CT ANGIO CHEST AORTA - 05/10/24 20:01 EDT CR/SR - XR CHEST 1V - 05/10/24 15:50 EDT Findings: Small opacity of the bilateral lung base. There is increase of interstitial lung markings. Hyperinflation of the lungs. Normal size heart. No acute fracture. IMPRESSION: Mild atelectasis/infiltrate of the lung base. This document has been electronically signed by: Stepan Ingram MD on 02/05/2025 18:18:17
--- NOTE | 2025-02-05 17:34 | ECG_ITS ---
Test Reason : CHOKING Blood Pressure : */* mmHG Vent. Rate : 113 BPM Atrial Rate : 113 BPM P-R Int : 134 ms QRS Dur : 134 ms QT Int : 376 ms P-R-T Axes : 47 -71 75 degrees QTcB Int : 515 ms Sinus tachycardia Left axis deviation Right bundle branch block Left ventricular hypertrophy with repolarization abnormality ( R in aVL ) Inferior infarct (cited on or before 10-May-2024) Abnormal ECG When compared with ECG of 11-May-2024 08:04, No significant change was found Referred By: Fernandez Mi Electronically Signed By: ARACELI ATKINS MD
--- NOTE | 2025-02-05 17:40 | ED_ITS ---
HPI - General Adult General Chief complaint: Skin/Abscess/Foreign Body Stated complaint: congestion x weeks, chocked on cough drop per ems Time Seen by Provider: 02/05/25 19:08 Source: patient Mode of arrival: ambulatory Limitations: no limitations Related Data Previous Rx's ?Medication ?Instructions ?Recorded triamcinolone acetonide 0.1 % 1 appl topical BID #80 g vincent 05/29/24 topical cream Eliquis 5 mg tablet (apixaban) 5 mg PO BID #180 tabs 0 08/02/24 ethacrynic acid 25 mg tablet 25 mg PO DAILY #90 tabs 0 08/02/24 losartan 25 mg tablet 25 mg PO DAILY #90 tabs 07/22 metoprolol succinate 25 mg 25 mg PO DAILY #30 tabs 08/22 tablet,extended release 24 hr Allergies Allergy/AdvReac Type Severity Reaction Status Date / Time atorvastatin Allergy Intermediate rash Verified 02/05/25 17:33 furosemide Allergy Intermediate Rash Verified 02/05/25 17:33 [facility] Past Medical History Medical History AAA (abdominal aortic aneurysm) Left ventricular thrombus CHF (congestive heart failure) Allergy to atorvastatin RBBB Colonoscopy refused Hyperlipidemia Tobacco abuse, in remission COPD (chronic obstructive pulmonary disease) Ruptured abdominal aortic aneurysm (AAA) Surgical History Hx of appendectomy Family History Family History Father Aneurysm Mother No problems noted. Social History Social History Household Members: Significant Other Household Members Other:: , Housing: Apartment Do you presently have visiting nurse or other home services: No Patient Tobacco Use Status: Former Tobacco user (month ago) Tobacco use type: Cigarette Cigarette Packs Per Day: 0.12 Cigarettes Per Day: 2.4 Smoked in Last 30 Days: No e-Cigarette/Vaping Use: Never Used Second Hand Smoke Exposure: Yes Use of substances other than those prescribed or required for medical reasons: No Advance Directives: No Advance Directives Information Provided: No service: No Current occupational status: retired Cognitive needs: No Hearing needs: No Vision needs: No Physical Exam ED Vital Signs: Vital Signs - 24 hr 02/05/25 17:29 02/05/25 18:39 02/05/25 19:29 Temperature 97.6 F Pulse Rate 108 H 111 H Respiratory Rate 18 26 H Blood Pressure 172/109 H 149/109 H 150/100 H Pulse Oximetry 97 96 Oxygen Delivery Method Room Air Room Air 02/05/25 21:00 02/05/25 22:28 Temperature 98.3 F 97.6 F Pulse Rate 96 107 H Respiratory Rate 22 H 26 H Blood Pressure 140/98 H 131/97 H Pulse Oximetry 98 94 Oxygen Delivery Method Room Air Room Air BMI result Body Mass Index 21.9 Course Reevaluation(s) Reevaluation #1: Ischemic cardiomyopathy and CHF came in for 1 week of shortness of breath, physical exam and chest x-ray is indicated for CHF/COPD No allergic reaction to Lasix/sulfa in the ED. ADELA. patient has been evaluated by Dr. Hudson in the ED fell the patient is stable with O2 sat has been stable, patient do not want to be admitted to the hospital. Will discharge the patient home with prednisone/ doxycycline with bronchodilator and continue with ethacrynic acid for diuresis. Patient was instructed to make an appointment with his PCP and his silo worker to follow-up with. Time: 22:03 Medications Administered Discontinued Medications Generic Name Dose Route Start Last Admin Trade Name Freq PRN Reason Stop Dose Admin Furosemide 40 mg 02/05/25 19:14 02/05/25 19:29 Furosemide 40 Mg/4 Ml Vial IVPUSH 02/05/25 19:15 40 mg ONCE ONE Administration Protocol Medical Decision Making Differential Diagnosis Differential Diagnoses: The differential diagnosis associated with the presentation includes ( Acute CHF exacerbation, ADELA, electrolyte derangement, severe anemia, pneumonia, pneumothorax, pleural effusion.) Admission/Observation Consideration of admission/observation: Escalation of care including admission/observation considered Lab Data MDM Lab Attestation statement: I reviewed the patient's lab results. 02/05/25 18:01 02/05/25 18:01 Labs: Lab Results 02/05/25 02/05/25 02/05/25 Range/Units 18:01 20:34 20:35 WBC 6.7 (4.8-10.8) X10*3/uL RBC 6.08 H (4.60-5.80) X10*6/uL Hgb 17.0 (14.0-18.0) g/dl Hct 51.9 (42.0-52.0) % MCV 85.4 (80.0-98.0) fL MCH 28.0 (27.0-33.0) pg MCHC 32.8 (31.0-36.0) g/dl RDW 15.3 (11.0-16.0) % Plt Count 150 L (160-400) X10*3/uL MPV 11.2 (9.4-12.4) fL Immature Gran % (Auto) 0.3 (0.0-0.4) % Neut % (Auto) 70.3 (45-73) % Lymph % (Auto) 15.9 L (20-40) % [place] % (Auto) 10.7 (2-11) % Eos % (Auto) 1.3 (0-4) % Baso % (Auto) 1.5 (0-2) % Lymph # (Auto) 1.1 L (1.2-4.9) X10*3/uL [place] # (Auto) 0.7 (0.1-1.2) X10*3/uL Eos # (Auto) 0.1 (0.0-0.4) X10*3/uL Baso # (Auto) 0.1 (0.0-0.2) X10*3/uL Abs Immat Gran (auto) 0.02 (0.00-0.03) X10*3/uL Absolute Neuts (auto) 4.7 (2.0-8.3) x10*3/uL Absolute Nucleated RBC 0.000 (0.0-0.012) X10*3/uL Nucleated RBC % (auto) 0.0 (0.0-0.2) /100WBC PT 13.3 (11.2-13.5) SEC INR 1.1 (0.9-1.1) APTT 30.9 (26.7-34.1) SEC Sodium 138 (135-145) mmol/L Potassium 4.9 D (3.3-5.1) mmol/L Chloride 102 (96-108) mmol/L Carbon Dioxide 27 (22-29) mmol/L Anion Gap 14 (12-20) BUN 16 (9-16) mg/dL Creatinine 1.57 H (0.5-1.4) mg/dL Estim Creat Clear Calc 32.2 Estimated GFR 43 Random Glucose 141 H (60-115) mg/dL Calcium 9.7 D (8.4-10.2) mg/dL Total Bilirubin 1.4 H (0.0-1.0) mg/dL AST 36 (5-37) U/L ALT 24 (0-40) U/L Alkaline Phosphatase 120 H (39-117) U/L Troponin I High Sens 40.6 H D (<3.5-35.0) ng/L NT-Pro-B Natriuret Pep 44907.2 H (<300) pg/mL Total Protein 7.4 (6.5-8.0) g/dL Albumin 4.6 (3.5-5.0) g/dL Urine Color Yellow Urine Appearance Clear Urine pH 6.5 (5.0-9.0) Ur Specific [place] <= 1.005 (1.005-1.025) Urine Protein Trace (Neg-Trace) mg/dL Urine Glucose (UA) Negative (Negative) mg/dL Urine Ketones Negative (Negative) mg/dL Urine Blood Negative (Negative) Urine Nitrite Negative (Negative) Ur Leukocyte Esterase Negative (Negative) Influenza Type A (PCR) NEGATIVE (Negative) Influenza Type B (PCR) NEGATIVE (Negative) RSV RNA Qual (PCR) NEGATIVE (Negative) SARS-CoV-2 RNA (RT-PCR) NEGATIVE (Negative) Independent Interpretation I performed an independent interpretation of an: Plain X-Ray ( Chest : Pulmonary congestion with no isiah edema.) Discharge Plan Discharge Clinical Impression: Congestive heart failure, Cardiomyopathy Patient Disposition: Admitted As Inpatient Print Language: Polish
[2025-02-05 18:06] LABS: MANUAL DIFF FLAG NO
[2025-02-05 18:11] LABS: Hematocrit 51.9 % (42.0-52.0); Hemoglobin 17.0 g/dl (14.0-18.0); Imm Gran Abs Auto 0.02 X10*3/uL (0.00-0.03); Imm Gran Pct Auto 0.3 % (0.0-0.4); Lymphocytes Absolute Auto 1.1 X10*3/uL (1.2-4.9); Mean Corpuscular HGB Conc 32.8 g/dl (31.0-36.0); Mean Corpuscular Hemoglobin 28.0 pg (27.0-33.0); Mean Corpuscular Volume 85.4 fL (80.0-98.0); NRBC Abs Auto 0.000 X10*3/uL (0.0-0.012); NRBC Pct Auto 0.0 /100WBC (0.0-0.2); Platelet Count 150 X10*3/uL (160-400); Red Blood Count 6.08 X10*6/uL (4.60-5.80); White Blood Count 6.7 X10*3/uL (4.8-10.8)
[2025-02-05 18:26] LABS: Alanine Aminotransferase 24 U/L (0-40); Albumin Level 4.6 g/dL (3.5-5.0); Alkaline Phosphatase 120 U/L (39-117); Anion Gap 14 (12-20); Aspartate Amino Transferase 36 U/L (5-37); Blood Urea Nitrogen 16 mg/dL (9-16); Calcium 9.7 mg/dL (8.4-10.2); Carbon Dioxide 27 mmol/L (22-29); Chloride 102 mmol/L (96-108); Creatinine Clr Calc Pharmacy 32.2; Estimated Glomerular Filt Rate 43; Potassium 4.9 mmol/L (3.3-5.1); Sodium 138 mmol/L (135-145); Total Protein 7.4 g/dL (6.5-8.0)
[2025-02-05 18:45] LABS: Resp Syncy Virus RNA Qual PCR NEGATIVE (Negative); SARS COV2 PCR INHOUSE NEGATIVE (Negative)
--- NOTE | 2025-02-05 19:16 | ED.GENADULT ---
HPI - General Adult General Chief complaint: Skin/Abscess/Foreign Body Stated complaint: congestion x weeks, chocked on cough drop per ems Time Seen by Provider: 02/05/25 19:08 Source: patient Mode of arrival: ambulatory Limitations: no limitations History of Present Illness ED Provider: DR. Snowden HPI narrative: 79-year-old male with PMHx HTN, HLD, s/p triple a repair, COPD BPH, systolic heart failure due to ischemic cardiomyopathy On Eliquis, patient is taking ethacrynic acid 50 mg daily and spironolactone 25 mg daily and losartan 25 mg daily. patient return for evaluation after was choked on coughing drop given by his , complained of shortness of breath with exertion +productive cough with clear sputum, patient normally can not sleep supine because he gets short of breath so sleep on his side with couple pillows to raise his head, no lower extremity swelling or edema, no fever, no chills, no exposure to sick contacts. Related Data Previous Rx's ?Medication ?Instructions ?Recorded triamcinolone acetonide 0.1 % 1 appl topical BID #80 grams 05/29/24 topical cream Eliquis 5 mg tablet (apixaban) 5 mg PO BID #180 tabs 08/02/24 ethacrynic acid 25 mg tablet 25 mg PO DAILY #90 tabs 08/02/24 losartan 25 mg tablet 25 mg PO DAILY #90 tabs 08/02/24 metoprolol succinate 25 mg 25 mg PO DAILY #30 tabs 08/03/24 tablet,extended release 24 hr albuterol sulfate 90 mcg/actuation 2 inh inhalation Q6H PRN shortness 02/05/25 breath activated powder inhaler of breath or wheezing #1 ea doxycycline hyclate 100 mg tablet 100 mg PO BID #14 tabs 02/05/25 prednisone 20 mg tablet 20 mg PO BID #10 tabs 02/05/25 Allergies Allergy/AdvReac Type Severity Reaction Status Date / Time atorvastatin Allergy Intermediate rash Verified 02/05/25 17:33 furosemide Allergy Intermediate Rash Verified 02/05/25 17:33 Review of Systems Review of Systems: All other systems are reviewed and are negative Constitutional: Reports as per HPI and Reports no additional constitutional complaints Eyes: Reports as per HPI and Reports no additional eye complaints Reports system reviewed and no additional complaints, except as documented Cardiovascular: Reports as per HPI and Reports no additional cardiovascular complaints Respiratory: Reports as per HPI and Reports no additional respiratory complaints Gastrointestinal: Reports as per HPI and Reports no additional gastrointestinal complaints Genitourinary: Reports no additional female genitourinary complaints Musculoskeletal: Reports no additional musculoskeletal complaints Skin/Breast: Reports system reviewed and no additional complaints, except as docu Psychiatric: Reports no additional psychiatric complaints Endocrine: Reports no additional endocrine complaints Hematologic/Lymphatic: Reports no additional hematologic/lymphatic complaints Allergic/Immunologic: Reports no additional allergic/immunologic complaints Reports system reviewed and no additional complaints, except as documented and Reports Abnormal speech present [facility] Past Medical History Medical History AAA (abdominal aortic aneurysm) Left ventricular thrombus CHF (congestive heart failure) Allergy to atorvastatin RBBB Colonoscopy refused Hyperlipidemia Tobacco abuse, in remission COPD (chronic obstructive pulmonary disease) Ruptured abdominal aortic aneurysm (AAA) Surgical History Hx of appendectomy Family History Family History Father Aneurysm Mother No problems noted. Social History Social History Household Members: Significant Other Household Members Other:: , Housing: Apartment Do you presently have visiting nurse or other home services: No Patient Tobacco Use Status: Former Tobacco user (month ago) Tobacco use type: Cigarette Cigarette Packs Per Day: 0.12 Cigarettes Per Day: 2.4 Smoked in Last 30 Days: No e-Cigarette/Vaping Use: Never Used Second Hand Smoke Exposure: Yes Use of substances other than those prescribed or required for medical reasons: No Advance Directives: No Advance Directives Information Provided: No service: No Current occupational status: retired Cognitive needs: No Hearing needs: No Vision needs: No Physical Exam ED Vital Signs: Vital Signs - 24 hr 02/05/25 17:29 02/05/25 18:39 02/05/25 19:29 Temperature 97.6 F Pulse Rate 108 H 111 H Respiratory Rate 18 26 H Blood Pressure 172/109 H 149/109 H 150/100 H Pulse Oximetry 97 96 Oxygen Delivery Method Room Air Room Air 02/05/25 21:00 02/05/25 22:28 Temperature 98.3 F 97.6 F Pulse Rate 96 107 H Respiratory Rate 22 H 26 H Blood Pressure 140/98 H 131/97 H Pulse Oximetry 98 94 Oxygen Delivery Method Room Air Room Air BMI result Body Mass Index 21.9 Vital signs have been reviewed and appear to be correct. Blood pressure elevated. Heart rate Elevated.Respiratory rate normal. Temperature normal. Oxygen saturation normal. Appearance: Alert. Oriented X3. No acute distress. Head: Normal external exam. Normocephalic. Atraumatic. No Mathew signs noted. No raccoon eyes noted Eyes: PERRLA. EOMI. Conjunctiva and sclera normal. Eyelids normal. ENT: TM's Normal. Pharynx normal. Uvula midline. Moist mucous membranes. No trismus noted. No drooling noted. No muffled voice noted. Neck: Normal inspection. Neck supple. FROM. No adenopathy. Thyroid Normal. No meningeal signs. No neck mass noted. CVS: Normal heart rate and rhythm. Heart sound normal. No murmurs noted. Pulses normal throughout. Respiratory: No respiratory distress. Painless inspiration. Breath sounds normal. Bilateral pulmonary rales at the bases.No accessory muscle usage noted or decreased air movement noted. Abdomen: Soft and nontender. Bowel sounds normal in all 4 quadrants. No distention noted. No organomegaly noted. No visible injury noted. Back: No CVA tenderness. Full range of motion noted. Skin: Skin warm and dry. Normal skin color. Normal skin turgor. No rashes/lesions/lacerations noted. Extremities: No lower extremity edema. Extremities exhibit normal range of motion. Extremities nontender. Neuro: Oriented X 3. Cranial nerve exam: II-XII are grossly intact No motor deficit. No sensory deficit. Reflexes normal. Course Reevaluation(s) Reevaluation #1: a 79-year-old male history of multiple comorbidity including COPD, CHF. Patient presented today for evaluation after he choked on a cough drop earlier today, patient has no complaints currently no difficulty breathing patient do not want to be admitted to the hospital and want to go home patient is calling a family member to pick him up from the hospital. Of note patient was evaluated by the hospitalist Dr. Hudson in the ED but patient is still declined admisson Time: 22:44 Medications Administered Discontinued Medications Generic Name Dose Route Start Last Admin Trade Name Freq PRN Reason Stop Dose Admin Furosemide 40 mg 02/05/25 19:14 02/05/25 19:29 Furosemide 40 Mg/4 Ml Vial IVPUSH 02/05/25 19:15 40 mg ONCE ONE Administration Protocol Medical Decision Making Differential Diagnosis Differential Diagnoses: The differential diagnosis associated with the presentation includes ( CHF, COPD, pneumonia, pneumothorax, pleural effusion, electrolyte derangement, severe anemia, ADELA.) Admission/Observation Consideration of admission/observation: Escalation of care including admission/observation considered Consult Healthcare Provider Management of the patient was discussed with: Hospitalist ( Dr. Hudson) Lab Data MDM Lab Attestation statement: I reviewed the patient's lab results. 02/05/25 18:01 02/05/25 18:01 Labs: Lab Results 02/05/25 02/05/25 02/05/25 Range/Units 18:01 20:34 20:35 WBC 6.7 (4.8-10.8) X10*3/uL RBC 6.08 H (4.60-5.80) X10*6/uL Hgb 17.0 (14.0-18.0) g/dl Hct 51.9 (42.0-52.0) % MCV 85.4 (80.0-98.0) fL MCH 28.0 (27.0-33.0) pg MCHC 32.8 (31.0-36.0) g/dl RDW 15.3 (11.0-16.0) % Plt Count 150 L (160-400) X10*3/uL MPV 11.2 (9.4-12.4) fL Immature Gran % (Auto) 0.3 (0.0-0.4) % Neut % (Auto) 70.3 (45-73) % Lymph % (Auto) 15.9 L (20-40) % [place] % (Auto) 10.7 (2-11) % Eos % (Auto) 1.3 (0-4) % Baso % (Auto) 1.5 (0-2) % Lymph # (Auto) 1.1 L (1.2-4.9) X10*3/uL [place] # (Auto) 0.7 (0.1-1.2) X10*3/uL Eos # (Auto) 0.1 (0.0-0.4) X10*3/uL Baso # (Auto) 0.1 (0.0-0.2) X10*3/uL Abs Immat Gran (auto) 0.02 (0.00-0.03) X10*3/uL Absolute Neuts (auto) 4.7 (2.0-8.3) x10*3/uL Absolute Nucleated RBC 0.000 (0.0-0.012) X10*3/uL Nucleated RBC % (auto) 0.0 (0.0-0.2) /100WBC PT 13.3 (11.2-13.5) SEC INR 1.1 (0.9-1.1) APTT 30.9 (26.7-34.1) SEC Sodium 138 (135-145) mmol/L Potassium 4.9 D (3.3-5.1) mmol/L Chloride 102 (96-108) mmol/L Carbon Dioxide 27 (22-29) mmol/L Anion Gap 14 (12-20) BUN 16 (9-16) mg/dL Creatinine 1.57 H (0.5-1.4) mg/dL Estim Creat Clear Calc 32.2 Estimated GFR 43 Random Glucose 141 H (60-115) mg/dL Calcium 9.7 D (8.4-10.2) mg/dL Total Bilirubin 1.4 H (0.0-1.0) mg/dL AST 36 (5-37) U/L ALT 24 (0-40) U/L Alkaline Phosphatase 120 H (39-117) U/L Troponin I High Sens 40.6 H D (<3.5-35.0) ng/L NT-Pro-B Natriuret Pep 65493.2 H (<300) pg/mL Total Protein 7.4 (6.5-8.0) g/dL Albumin 4.6 (3.5-5.0) g/dL Urine Color Yellow Urine Appearance Clear Urine pH 6.5 (5.0-9.0) Ur Specific [place] <= 1.005 (1.005-1.025) Urine Protein Trace (Neg-Trace) mg/dL Urine Glucose (UA) Negative (Negative) mg/dL Urine Ketones Negative (Negative) mg/dL Urine Blood Negative (Negative) Urine Nitrite Negative (Negative) Ur Leukocyte Esterase Negative (Negative) Influenza Type A (PCR) NEGATIVE (Negative) Influenza Type B (PCR) NEGATIVE (Negative) RSV RNA Qual (PCR) NEGATIVE (Negative) SARS-CoV-2 RNA (RT-PCR) NEGATIVE (Negative) Independent Interpretation I performed an independent interpretation of an: Plain X-Ray ( chest: mild atelectasis versus infiltrate at the lung bases.) Radiology Impression Discussion of test interpretation with radiology: I have reviewed the radiologist's reading. Discharge Plan Discharge Clinical Impression: Congestive heart failure, Cardiomyopathy, COPD exacerbation Patient Disposition: Home, Self-Care Instructions: COPD (Chronic Obstructive Pulmonary Disease) (ED) Prescriptions: New prednisone 20 mg tablet 20 mg PO BID Qty: 10 0RF albuterol sulfate 90 mcg/actuation aerosol powdr breath activated 2 inh inhalation Q6H PRN (Reason: shortness of breath or wheezing) Qty: 1 0RF doxycycline hyclate 100 mg tablet 100 mg PO BID Qty: 14 0RF No Action Eliquis 5 mg tablet 5 mg PO BID Qty: 180 1RF ethacrynic acid 25 mg tablet 25 mg PO DAILY Qty: 90 1RF losartan 25 mg tablet 25 mg PO DAILY Qty: 90 1RF metoprolol succinate 25 mg tablet extended release 24 hr 25 mg PO DAILY Qty: 30 5RF Rx Instructions: New triamcinolone acetonide 0.1 % cream 1 appl topical BID Qty: 80 0RF Referrals: Eduardo Little MD [Physician, Cardiology] Nemesio Sheth MD [Physician, Pulmonology] Print Language: Argentine
[2025-02-05] MEDS: Furosemide 40 MG/4 ML VIAL IVPUSH (19:29)
[2025-02-05 20:47] LABS: Appearance Urine Clear; Glucose Urine UA Negative (Negative); PH 6.5 (5.0-9.0); Specific Gravity - Urine <= 1.005 (1.005-1.025)
[2025-02-05 21:00] LABS: Troponin-I High Sensitivity 40.6 ng/L (<3.5-35.0)
[2025-02-05 21:19] LABS: INTERNATIONAL NORM RATIO 1.1 (0.9-1.1); Prothrombin Time 13.3 SEC (11.2-13.5)
[2025-02-05 21:25] LABS: Partial Thromboplastin Time 30.9 SEC (26.7-34.1)
--- NOTE | 2025-02-05 22:30 | PC.NURSE ---
Pt declined admission, plan to be dc'd home. Called Pt's Cristin, whom per pt has a car but cannot drive. Cristin is calling her son to see if he can give Curt a ride home.
--- NOTE | 2025-02-05 22:33 | P.EN_ITS ---
Event Note Date of Service: 02/05/25 Event Note: Patient is seen and examined at bedside. He reports that he primarily came in because he choked on a cough drop but now feels much better, only minimal shortness of breath as he has had a productive cough and shortness breath for 2- 3 weeks. Denies any orthopnea or weight gain or edema. Clinically appears more to be COPD rather than acute heart failure. As patient is not in distress and is 98% on room air with creatinine not far from his baseline, would recommend outpatient management with steroids, continue oral maintenance diuretic, may benefit from antibiotics, and instructions to return if condition worsens. Time Spent With Patient Time: Total time managing care of this patient today ____ minutes.
--- NOTE | 2025-02-05 23:04 | PC.NURSE ---
reviewed discharge instructions with pt. pt verbalized understanding, no sign of distress upon discharge, pt wheeled out by daughter.
--- OUTSIDE RECORDS SUMMARY | 2025-02-05 23:18 | XMS_ITS | Encounter Summary ---
Author Organization [facility] Address [address] [place] [address] Care Team Providers Care Director Of Respiratory Therapy Name Role Phone Dallas Shepherd Primary Care Provider [phone] Encounter Details Date Type Department Care Team (Late st Contact Info) Description 05/02/2019 Scanned Document [facility] Vascular & Endovascular Surgery [address] [place] [address] David Frazier MD [address] [place] [address] Social History Tobacco Use Types Packs/Day Years [...] on filedocumented in this encounter Care Teams Director Of Respiratory Therapy Relationship Specialty Start Date End Date Dallas Shepherd PA [facility] [address] [place] [address] PCP - General Internal Medicine 05/02/19 documented as of this encounter
--- OUTSIDE RECORDS SUMMARY | 2025-02-05 23:18 | XMS_ITS | Clinical Summary ---
Author Organization [facility] Address [address] [place] [address] Care Team Providers Care Automotive Service Technician Name Role Phone Dallas Shepherd Primary Care Provider [phone] Social History Tobacco Use Types Packs/Day Years Used Date Smoking Tobacco: Never Assessed Sex and Gender Information Value Date Recorded Sex Assigned at Not on file Legal Sex Male 12:25 PM EST Gender Identity Not on file Sexual Orientation Not on file Plan of Treatment Health Maintenance Due Date Last Done Comments Advance Care Planning 1945 Hepatitis C Virus Screening 1945 DTaP/Tdap/Td Vaccines (1 - Tdap) 12/15/1966 Pneumococcal Vaccines 50+ (1 of 1 - PCV) 12/15/1997 Zoster (Shingles) Vaccine (1 of 2) 12/15/1997 RSV Vaccine 50 years and old er and Patients (1 - 1-dose 75+ series) 12/15/2022 COVID-19 Vaccine ( - 2024-2 6 season) 2024 Hepatitis B Vaccines Aged Out No long er eligible based on patient's age to complete this topic Care Teams Automotive Service Technician Relationship Specialty Start Date End Date Dallas Shepherd PA [facility] [address] [place] [address] PCP - General Internal Medicine 05/02/19
== END 2025-02-05 23:07 | disposition home or self-care (01) ==
PROVIDERS: Physician Assistant; Emergency Provider Emergency Medicine
DX: I50.9 Heart failure, unspecified (principal); J44.1 Chronic obstructive pulmonary disease with (acute) exacerbation; I42.9 Cardiomyopathy, unspecified; I45.10 Unspecified right bundle-branch block; R00.0 Tachycardia, unspecified; Z03.818 Encounter for observation for suspected exposure to other biological agents ruled out; I10 Essential (primary) hypertension; E78.5 Hyperlipidemia, unspecified; Z87.891 Personal history of nicotine dependence; Z79.51 Long term (current) use of inhaled steroids; Z79.899 Other long term (current) drug therapy; Z79.01 Long term (current) use of anticoagulants
CPT/HCPCS: 36415; 71046; 80053; 81003; 83880; 84484; 85025; 85610; 85730; 87637; 93005; 96374; 99284; J1938

== ENCOUNTER → 2025-02-05 17:34 | Outpatient (BNV) | payer MEDICARE, MEDICAID, SELFPAY | PROVIDERS: Emergency Provider Emergency Medicine; Visit Provider Nuclear Medicine | DX: J18.9 Pneumonia, unspecified organism (principal) | CPT/HCPCS: 71046 ==

== ENCOUNTER → 2025-02-05 17:34 | Outpatient (BNV) | payer MEDICARE, MEDICAID, SELFPAY | PROVIDERS: Emergency Provider Emergency Medicine; Visit Provider Internal Medicine Cardiovascular Disease | DX: I45.10 Unspecified right bundle-branch block (principal); I51.7 Cardiomegaly; I25.2 Old myocardial infarction; R00.0 Tachycardia, unspecified | CPT/HCPCS: 93010 ==

== ENCOUNTER 2025-02-25 13:16 | Outpatient (AMB) | payer MEDICARE, MEDICAID, SELFPAY ==
--- NOTE | 2025-02-25 13:19 | MHC.PC.OV ---
Vital Signs 02/25/25 13:20 Height 5 ft 4 in Weight 137 lb BMI 23.5 BP 130/86 Blood Pressure Location Lt brachial Position Sitting Respiration 18 Pulse 100 Pulse Source Pulse Oximeter Temp 97.8 F Temp Source Oral Pulse Oximetry (%) 97 Oxygen Delivery Method Room Air Intake Visit Reasons: 6 months f/up Intake Note: Pt is here today for 6 months follow up visit. Allergies atorvastatin Allergy (Intermediate, Verified 02/25/25 13:22) rash furosemide Allergy (Intermediate, Verified 02/25/25 13:22) Rash Medication List - Last Reconciled 02/25/25 by Leah Snowden MD albuterol sulfate 90 mcg/actuation 2 inhalations inhalation Q6H PRN Eliquis (apixaban) 5 mg PO BID NS ethacrynic acid 25 mg PO DAILY losartan 25 mg PO DAILY metoprolol succinate ER 25 mg PO DAILY triamcinolone acetonide 0.1% 1 appl topical BID Tobacco use date assessed: 02/25/25 Fall risk assessment: No Falls in past year Last assessed Fall Risk: 02/25/25 Dental Screening Dental Screen Date: 06/26/24 HPI 6 months f/up HPI Details Patient presents for the follow-up. He stopped taking all his medications and it is not interested in restarting. Patient complains of dyspnea on exertion but denies cough wheezing sputum production. He complains of feeling restless and insomnia. [facility] Medical History AAA (abdominal aortic aneurysm) Left ventricular thrombus CHF (congestive heart failure) Allergy to atorvastatin RBBB Colonoscopy refused Hyperlipidemia Tobacco abuse, in remission COPD (chronic obstructive pulmonary disease) Ruptured abdominal aortic aneurysm (AAA) Surgical History Hx of appendectomy Family History Father Aneurysm Mother No problems noted. Social History Household Members: Significant Other Household Members Other:: , Housing: Apartment Do you presently have visiting nurse or other home services: No Patient Tobacco Use Status: Former Tobacco user (month ago) Tobacco use type: Cigarette Cigarette Packs Per Day: 0.12 Cigarettes Per Day: 2.4 e-Cigarette/Vaping Use: Never Used Second Hand Smoke Exposure: Yes service: No Current occupational status: retired Cognitive needs: No Hearing needs: No Vision needs: No Questionnaire Thrive Questionnaire Date Thrive assessed: 06/26/24 MARTINA-7 AMB Questionnaire MARTINA-7 Date MARTINA - 7 assessed: 06/26/24 Source: Developed by Drs. Rafael Agee, Marisel Estrada, Kyler Shukla and colleagues, with an educational damari from [employer]. Review of Systems Const All systems reviewed & are unremarkable except as noted in HPI and below ENT Reports no additional complaints Card Reports no additional complaints Resp Reports no additional complaints GI Reports no additional complaints Reports no additional complaints Physical exam (Primary Care) Vital Signs: Last Vital Signs Temp 97.8 F 02/25/25 13:20 Pulse 100 02/25/25 13:20 Resp 18 02/25/25 13:20 BP 130/86 02/25/25 13:20 Pulse Ox 97 02/25/25 13:20 Oxygen Delivery Method Room Air 02/25/25 13:20 BMI result Body Mass Index 23.5 Tobacco/Smoking Status: Tobacco use Status Tobacco use date assessed 02/25/25 02/25/25 13:26 Patient Tobacco Use Status Former Tobacco user (month 02/25/25 13:20 ago) Tobacco use type Cigarette 02/25/25 13:20 e-Cigarette/Vaping Use Never Used 02/25/25 13:20 Thrive Assessment: Date of Thrive Assessment Date Thrive assessed 06/26/24 02/25/25 13:20 Const General: no acute distress HENMT Head: Yes normal to inspection Eyes General: appearance normal, both eyes and all related structures Resp Effort & Inspection: normal respiratory effort Auscultation: diminished lung sounds Cardio Rhythm: regular rhythm Heart sounds: S1 normal heart sound present and S2 normal heart sound present GI Inspection: Yes normal to inspection Palpation (GI): Soft to palpation Coding Level of Care Code Est Pt Level 3 (31889) Diagnoses CHF (congestive heart failure) I50.9 Insomnia G47.00 Assessment & Plan Assessment & Plan (1) CHF (congestive heart failure): Comment: EF 20 %, severe global hypokinesis, regional wall morion abnormalities, moderate MR, Code(s): I50.9 - Heart failure, unspecified Category: Medical Plan: Patient refuses to take his medications. He was advised to try restarting losartan. He refused to follow-up with cardiology (2) Insomnia: Code(s): G47.00 - Insomnia, unspecified Category: Medical Plan: Try trazodone 50 mg q.h.s. Medications: New trazodone 50 mg PO BEDTIME PRN 30 tabs 3RF sleep Refilled losartan 25 mg PO DAILY 90 tabs 1RF
[2025-02-25 13:20] VITALS: BP 130/86; PULSE 100; RESP 18; TEMP 36.6; O2SAT 97; BMI 23.5
--- OUTSIDE RECORDS SUMMARY | 2025-02-25 15:15 | XMS_ITS | Clinical Summary ---
Author Organization [facility] Address [address] [place] [address] Care Team Providers Care Computer Recycling Worker Name Role Phone Dallas Shepherd Primary Care Provider [phone] Social History Tobacco Use Types Packs/Day Years [...] age to complete this topic Care Teams Computer Recycling Worker Relationship Specialty Start Date End Date Dallas Shepherd PA [facility] [address] [place] [address] PCP - General Internal Medicine 05/02/19
--- OUTSIDE RECORDS SUMMARY | 2025-02-25 15:15 | XMS_ITS | Encounter Summary ---
Author Organization [facility] Address [address] [place] [address] Care Team Providers Care Fabric Separator Operator Name Role Phone Dallas Shepherd Primary Care Provider [phone] Encounter Details Date Type Department Care Team (Late st Contact Info) Description 05/02/2019 Scanned Document [facility] [address] [place] [address] David Frazier MD [address] [place] [address] Social History Tobacco Use Types Packs/Day Years [...] on filedocumented in this encounter Care Teams Fabric Separator Operator Relationship Specialty Start Date End Date Dallas Shepherd PA [facility] [address] [place] [address] PCP - General Internal Medicine 05/02/19 documented as of this encounter
== END 2025-02-25 13:55 | disposition home or self-care (01) ==
LOC: HO.HMCC 13:16
PROVIDERS: PCP Internal Medicine; Visit Provider Internal Medicine
DX: I50.9 Heart failure, unspecified (principal); G47.00 Insomnia, unspecified

== ENCOUNTER → 2025-02-25 13:16 | Outpatient (BNVA) | payer MEDICARE, MEDICAID, SELFPAY | PROVIDERS: PCP Internal Medicine; Visit Provider Internal Medicine | DX: I50.9 Heart failure, unspecified (principal); G47.00 Insomnia, unspecified; Z87.891 Personal history of nicotine dependence | CPT/HCPCS: 99212 ==